=== PATIENT | male | born 1950 | race Caucasian/White ===

== ENCOUNTER 2020-11-14 11:33 | Observation (INO) | payer MEDICARE ==
[~2020-11-14] VITALS: Ht 165.1 cm; Wt 84.6 kg
--- NOTE | 2020-11-14 13:30 | NUR ---
PATIENT WAS TRANSPORTED TO THE HOSPITAL BY HIS DAUGHTER. PATIENT WAS ADMITTED TO THE UNIT FROM [facility]. PATIENT WAS ESCORTED TO ROOM 107 BY THIS RN VIA A WHEELCHAIR. PATIENT WAS ORIENTED TO THE UNIT ROUTINES. PATIENT KNEW HIS NAME, DATE OF , WHERE HE WAS AND WHY HE WAS HERE BUT DID NOT KNOW THE DAY, MONTH OR YEAR. PATIENT IS ALERT, CALM, COOPERATIVE, BUT CONFUSED. PATIENT DID STATE HE WAS STILL HAVING HALLUCINATIONS AND DELUSIONS. PATIENT WAS ASSISTED INTO THE BED WITH THE SIDE RAILS UP x'S 2 AND CALL LIGHT IN REACH. WCTM AND IMPLEMENT ANY ORDERS RECEIVED.
[2020-11-14 14:22] VITALS: BP 122/85
[2020-11-14] MEDS ORDERED: ACETAMINOPHEN 325 MG TABLET PO PRN (15:00)
[2020-11-14 15:56] VITALS: BP 122/85
--- NOTE | 2020-11-14 15:56 | HP ---
ADMIT DATE: 11/14/2020 HISTORY OF PRESENT ILLNESS: The patient is a 70-year-old male patient, a resident at [facility] in [facility], was basically admitted to [address] [place] [address] to be screened for COVID-19. Ultimately, he will be admitted to [facility] on account of being as insomnia, extremely anxious, report the door is melting of hinges, water is coming out of electrical cords, states to staff that "I think its my time to go," believes comes to him at nighttime and they have sex together. He also sees lots of bugs, snakes and puppies. He has been seeing them for a while there in his assisted living facility and has seen a lot of them today here in our hospital. Apparently, attempts made to change his medication were unsuccessful and therefore this resulted in his referral to this facility. PAST MEDICAL HISTORY: Significant for hypertension, anemia, chronic kidney disease, type 2 diabetes, has also right arm deformity due to childhood poliomyelitis. PSYCHIATRIC HISTORY: Significant for dementia, depression and anxiety. PAST SURGICAL HISTORY: Unremarkable. ALLERGIES: He has no known drug allergies. MEDICATIONS: He is currently on following medications: He is on acetaminophen 650 mg twice daily, atorvastatin calcium 20 mg at bedtime, cetirizine 10 mg once a day, duloxetine 60 mg once a day, fluticasone 1 spray in each nostril once a day. He is on lactulose 15 mL by mouth once a day, lisinopril 10 mg once a day, meloxicam 7.5 mg once a day. He is on Namenda extended release 28 mg once a day, propranolol 10 mg 1 tablet twice a day, quetiapine fumarate 25 mg every night at bedtime. He is on tamsulosin 0.4 mg at bedtime. REVIEW OF SYSTEMS: As per history of present illness. PHYSICAL EXAMINATION: GENERAL: When I examined him, the patient looked well and was clearly in no apparent respiratory distress. No pallor, jaundice, cyanosis or thyromegaly. No jugular venous distention. No lower limb edema. VITAL SIGNS: His heart rate was 79, blood pressure was 122/85, temperature was 98, respiratory rate 20, and oxygen saturation was 96% on room air. HEAD, EYES, EARS, NOSE AND THROAT: Showed normocephalic, atraumatic. NECK: Supple. HEART: Showed normal first and second heart sounds. No gallop, rub or murmur. CHEST: Clear to auscultation. No crepitation or rhonchi. ABDOMEN: Distended, soft, nontender. NEUROLOGIC: He is awake, alert, without any obvious lateralizing sign. All his cranial nerves are intact. He moves his left upper and bilateral lower extremities without difficulty, has atrophic deformed right upper extremity due to childhood poliomyelitis. The patient stated he is able to walk, is more unsteady on his feet. PLAN: My plan obviously is to check all his lab work including the coronavirus by PCR testing. Check a CBC, CMP, D-dimer and other labs at [facility]. We will consult Dr. Cho to evaluate him and once his COVID test by PCR is negative, he will be transferred to [facility] for inpatient psychiatric stabilization. PHOENIX GARCIA MD DR: JOHN/margaret JOB#: [id number] / [id number]
[2020-11-14 19:53] VITALS: BP 136/76
[2020-11-14 20:33] VITALS: BP 136/76
[2020-11-14] MEDS ORDERED: ATORVASTATIN CALCIUM 20 MG TABLET PO SCH (21:00)
[2020-11-14] MEDS ORDERED: TAMSULOSIN 0.4 MG CAP.ER.24H. PO SCH (21:00)
[2020-11-14] MEDS ORDERED: MEMANTINE 10 MG TABLET. PO SCH (21:00)
[2020-11-14] MEDS ORDERED: PROPRANOLOL 10 MG TABLET. PO SCH (21:00)
[2020-11-14] MEDS ORDERED: QUEtiapine 25 MG TABLET. PO SCH (21:00)
[2020-11-14 21:20] LABS: BASO % 1 % (0-3); EOS # 0.2 x10^3/uL (0.0-0.7); EOS % 3 % (0-3); HEMOGLOBIN 11.7 g/dL (13.0-17.5); LYMPH # 1.8 x10^3/uL (1.0-4.8); LYMPH % 33 % (24-48); MEAN CORPUSCULAR HEMOGLOBIN 32 pg (25-35); MEAN CORPUSCULAR HGB CONC 34 g/dL (31-37); MEAN CORPUSCULAR VOLUME 96 fL (79-100); MONO # 0.5 x10^3/uL (0.0-1.1); MONO % 9 % (0-9); NEUT # 3.1 x10^3uL (1.8-7.7); NEUT % 55 % (31-73); PLATELET COUNT 179 x10^3/uL (140-400); RED BLOOD COUNT 3.64 x10^6/uL (4.30-5.70); RED CELL DISTRIBUTION WIDTH 12.7 % (11.5-14.5); WHITE BLOOD COUNT 5.6 x10^3/uL (4.0-11.0)
[2020-11-14 21:26] LABS: ALBUMIN 3.3 g/dL (3.4-5.0); CALCIUM 8.1 mg/dL (8.5-10.1); CREATININE 1.9 mg/dL (0.7-1.3); MAGNESIUM 2.3 mg/dL (1.8-2.4); POTASSIUM 4.6 mmol/L (3.5-5.1); TOTAL BILIRUBIN 0.3 mg/dL (0.2-1.0); TOTAL PROTEIN 6.6 g/dL (6.4-8.2)
[2020-11-15] MEDS ORDERED: MELO7.5T29 PO (02:56)
[2020-11-15] MEDS ORDERED: FLUT50DI IH (02:56)
[2020-11-15] MEDS ORDERED: QUET25TA5 PO (02:56)
[2020-11-15] MEDS ORDERED: ACET325T21 PO (02:56)
[2020-11-15] MEDS ORDERED: LISI10TA16 PO (02:56)
[2020-11-15] MEDS ORDERED: MEMA10TA PO (02:56)
[2020-11-15] MEDS ORDERED: ATOR20TA58 PO (02:56)
[2020-11-15] MEDS ORDERED: TAMS0.4C97 PO (02:56)
[2020-11-15] MEDS ORDERED: PROP10TA PO (02:56)
[2020-11-15] MEDS ORDERED: LACT20PA3 PO (02:56)
[2020-11-15] MEDS ORDERED: DULO60CA6 PO (02:56)
[2020-11-15] MEDS ORDERED: CETI10TA16 PO (02:56)
--- NOTE | 2020-11-15 04:11 | NUR ---
PT DISCHARGED TO [facility] AFTER NEGATIVE COVID RESULTS. THIS NURSE CALLED AND GAVE ARIEL MEJÍA REPORT. BELONGINGS AND DISCHARGE PAPERWORK SENT W/ PT. PT WHEELED IN WHEELCHAIR TO [facility].
[2020-11-15 04:38] LABS: BACTERIA,URINE 0 /HPF (0-FEW); BILIRUBIN,URINE NEG (NEG); CLARITY,URINE CLEAR; COLOR,URINE YELLOW; GLUCOSE,URINE NEG (NEG); NITRITE,URINE NEG (NEG); RBC,URINE 0 /HPF (0-2); UROBILINOGEN,URINE 0.2 mg/dL (0.2 mg/dL); WBC,URINE 0 /HPF (0-4)
[2020-11-15] MEDS ORDERED: FLUT16SP21 NS (04:52)
[2020-11-15] MEDS ORDERED: LISINOPRIL 10 MG TABLET PO SCH (09:00)
[2020-11-15] MEDS ORDERED: CETIRIZINE HCL 10 MG TABLET PO SCH (09:00)
[2020-11-15] MEDS ORDERED: FLUTICASONE 50MCG/NASAL SPRAY 16GM BOTTLE. NS SCH (09:00)
[2020-11-15] MEDS ORDERED: DULoxetine HCL 60 MG CAPSULE.DR PO SCH (09:00)
[2020-11-15] MEDS ORDERED: MELOXICAM 7.5 MG TABLET PO SCH (09:00)
[2020-11-15] MEDS ORDERED: LACTULOSE 20 GM/30 ML SOLUTION. PO SCH (09:00)
[2020-11-15 14:56] LABS: THYROID STIM HORMONE (TSH) 0.971 uIU/mL (0.358-3.740)
[2020-11-15 23:15] LABS: HEMOGLOBIN A1C 5.8 % (4.8-5.6)
== END 2020-11-15 04:14 ==
LOC: 1 SOUTH 13:10
PROVIDERS: ADMIT Internal Medicine; ATTEND Internal Medicine
DX: R41.82 Altered mental status, unspecified (principal); Z20.822 Contact with and (suspected) exposure to COVID-19; I12.9 Hypertensive chronic kidney disease with stage 1 through stage 4 chronic kidney disease, or unspecified chronic kidney disease; N18.9 Chronic kidney disease, unspecified; E11.22 Type 2 diabetes mellitus with diabetic chronic kidney disease; G47.00 Insomnia, unspecified; F03.90 Unspecified dementia, unspecified severity, without behavioral disturbance, psychotic disturbance, mood disturbance, and anxiety; F02.80 Dementia in other diseases classified elsewhere, unspecified severity, without behavioral disturbance, psychotic disturbance, mood disturbance, and anxiety; F41.9 Anxiety disorder, unspecified; F32.9 Major depressive disorder, single episode, unspecified; Z79.899 Other long term (current) drug therapy
CPT/HCPCS: 36415; 80053; 80061; 81001; 82306; 82607; 83036; 83735; 84443; 85025; 85379; 86592; G0378; G0379; U0003; U0005

== ENCOUNTER 2020-11-15 04:04 | Inpatient (IN) | payer MEDICARE ==
[~2020-11-15] VITALS: Ht 162.6 cm; Wt 85.6 kg
[~2020-11-15 04:04] MED LIST: ACET325T21 PO; ATOR20TA58 PO; CETI10TA16 PO; DULO60CA6 PO; FLUT50DI IH; LACT20PA3 PO; LISI10TA16 PO; MELO7.5T29 PO; MEMA10TA PO; PROP10TA PO; QUET25TA5 PO; TAMS0.4C97 PO
[2020-11-15 04:34] VITALS: BP 116/81
[2020-11-15] MEDS ORDERED: FLUT16SP21 NS (04:52)
[2020-11-15] MEDS ORDERED: METHYL SALICYLATE/MENTHOL TOPICAL OINTMENT 57GM TUBE. TP PRN (05:00)
[2020-11-15] MEDS ORDERED: MAGNESIUM HYDROXIDE 2,400 MG/30 ML ORAL.SUSP. PO PRN (05:00)
[2020-11-15] MEDS ORDERED: ACETAMINOPHEN 325 MG TABLET PO PRN ×2 (05:00)
[2020-11-15] MEDS ORDERED: MAG HYDROX/AL HYDROX/SIMETH 30 ML ORAL.SUSP PO PRN (05:00)
[2020-11-15 07:07] LABS: BACTERIA,URINE 0 /HPF (0-FEW); BILIRUBIN,URINE NEG (NEG); CLARITY,URINE CLEAR; COLOR,URINE YELLOW; GLUCOSE,URINE NEG (NEG); NITRITE,URINE NEG (NEG); RBC,URINE OCC /HPF (0-2); UROBILINOGEN,URINE 0.2 mg/dL (0.2 mg/dL); WBC,URINE OCC /HPF (0-4)
[2020-11-15 07:08] LABS: SQUAMOUS EPITHELIAL CELL,UR OCC /LPF
[2020-11-15] MEDS: LACTULOSE 20 GM/30 ML SOLUTION. PO SCH (08:46)
[2020-11-15] MEDS: PROPRANOLOL 10 MG TABLET. PO SCH ×2 (08:46→21:39)
[2020-11-15] MEDS: MEMANTINE 10 MG TABLET. PO SCH ×2 (08:46→21:28)
[2020-11-15] MEDS: DULoxetine HCL 60 MG CAPSULE.DR PO SCH (08:46)
[2020-11-15] MEDS: TAMSULOSIN 0.4 MG CAP.ER.24H. PO SCH ×2 (08:46→21:28)
[2020-11-15] MEDS: LISINOPRIL 10 MG TABLET PO SCH (08:47)
[2020-11-15] MEDS: MELOXICAM 7.5 MG TABLET PO SCH (08:47)
[2020-11-15] MEDS: CETIRIZINE HCL 10 MG TABLET PO SCH (08:47)
[2020-11-15] MEDS: FLUTICASONE 50MCG/NASAL SPRAY 16GM BOTTLE. NS SCH (08:48)
--- NOTE | 2020-11-15 12:16 | TX PLAN ---
Interdisciplinary Tx Plan Admission Information Nov 15, 2020 at 04:04 Legal Status (on Admission): Voluntary DPOA/Guardian Name: Karen EagleStep-dtr Contact Other Contact Name: Cherelle Other Contact Verified Code Status: DNR Allergies: Coded Allergies: No Known Drug Allergies (Unverified , 11/14/20) Diagnoses Primary Diagnosis: Depression, Anxiety, Dementia Reasons for Admission: Sig. Change Sleep, Anxiety/Panic, Hallucinations, Confusion/Disoriented Problem in Patient's Words: Per DPOA, pt has dementia that was diagnosed about 2 years ago. He see animals and [place]in flying out of the TV. Per facility, pt was exhibiting true feelings of fear r/t the things he was seeing and thinking. Additional Admission Comments: Per intake, insomnia, anxious, reports the door is melting off the hinges, seeing things upside down, thinks water is coming out of the electrical cords, states to staff that he thinks it's his time to go, believes comes to him at night and they have had sex. Problems Active Problems: hallucinations, delusions, fearfulness, anxiety Inactive Problems: None at this time Pt Strengths/Limitations Ability for [place]: Poor Cognitive Functioning/Ability: Fair Communication Skills/Ability: Fair Financial Resources: Poor Insight/Judgement: Poor Intellectual Ability: Poor Physical Health: Poor Social Skills: Fair Stability in Family: Poor Stability in School/Work: Poor Verbal Skills: Fair Discharge Criteria Discharge Criteria: No need for close observ., Adequate arrangements @DC, Verbal commit med comply, Improved behavior, Improved mood/thought Preliminary Discharge Plan Preliminary DC Plan: Current Living Arrange. Special Precautions Special Precautions: Suicide Risk Fall Risk: Moderate Other Precautions (specify): Uses a cane. Initial D/C Plan Pt plan is to return to [facility]. Identified Discharge Needs: None at this time. Currently Utilized Resources Currently Utilized Resources/P: PCP-Dr. Nathaniel YOUNGBLOOD-[facility] LEANDRO-Shirin Referrals Community Resources: None noted at this time. Identified Problems/Hx/Goals Objectives/Short-Term Goals Short Term Goals: Control abnormal behavior, Dec. Anxiety/Panic, Dec. Hallucin ation/Delus, Dec. Symp. Depression, Medication Stabilization, Monitor Med Effects Short Term Goals in Patient's: to have medications evaluated and adjusted. Stop seeing things that aren't there and not feel fear. 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 Education: Pt only has 5th grade education and struggles communicating his feelings. Community Follow-up PCP Community Provider/Family Inpu: FORD is aware that pt has arrived to [facility]. FORD has provided input in pt social history and is available for further information if needed. Treatment Plan Explained Patient/Retail And Promotions Coordinator had this treatment plan explained to him/her as indicated by the signature below and has been given the opportunity to ask questions and make suggestions: Date: Patient/Retail And Promotions Coordinator Signature: GREGOR MENDOZA Nov 15, 2020 12:16
[2020-11-15 16:33] VITALS: BP 114/84
[2020-11-15] MEDS: CHOLECALCIFEROL (VITAMIN D3) 50,000 UNIT CAPSULE PO SCH (17:54)
--- NOTE | 2020-11-15 20:55 | CONS ---
DATE OF CONSULTATION: 11/15/2020 REASON FOR CONSULTATION: Medical management. HISTORY OF PRESENT ILLNESS: The patient is a 70-year-old male patient who was seen initially at the Medical/Surgical Unit at [facility] where he was screened for COVID-19 and turned out to be undetectable and was transferred to [facility] on account of being extremely anxious, reported door is melting of hinges, water is coming out of electrical cords. He told the staff that he thinks it is his time to go, believes his comes back to him at nighttime and they have sex together. He also says lots of bugs, snakes, and puppies, has been seeing them for a while there in his assisted living facility and saw them again in our hospital and, therefore, the patient was admitted to [facility] for inpatient psychiatric stabilization. PAST MEDICAL HISTORY: Significant for hypertension, anemia, chronic kidney disease, type 2 diabetes. He has right arm deformity due to childhood poliomyelitis. PAST SURGICAL HISTORY: Unremarkable. PAST PSYCHIATRIC HISTORY: Significant for dementia, depression, and anxiety. ALLERGIES: He has no known drug allergies. FAMILY HISTORY: Noncontributory. MEDICATIONS: He is currently on meloxicam 7.5 mg once a day, lisinopril 10 mg once a day, lactulose 15 mL daily, Flonase 1 spray to each nostril once a day, duloxetine 60 mg once a day, cetirizine 10 mg daily, tamsulosin 0.4 mg twice a day, quetiapine fumarate 25 mg at bedtime, propranolol 10 mg twice a day, Namenda 10 mg twice a day, atorvastatin 20 mg at bedtime, and acetaminophen 650 mg every 6 hours. PHYSICAL EXAMINATION: GENERAL: When I examined him, he looked well and was clearly in no apparent respiratory distress. No pallor, jaundice, cyanosis, or thyromegaly. No jugular venous distention. No lower limb edema. VITAL SIGNS: His heart rate was 78, blood pressure was 136/76, temperature 98, respiratory rate was 16, and oxygen saturation was 94%. HEAD, EYES, EARS, NOSE AND THROAT: Normocephalic, atraumatic. NECK: Supple. HEART: Showed normal first and second heart sounds. No gallop or murmur. CHEST: Clear to auscultation. No crepitation or rhonchi. ABDOMEN: Distended, soft, nontender. NEUROLOGIC: He was awake, alert, responding appropriately. All cranial nerves intact. EXTREMITIES: He moves all his extremities. He obviously has deformity of his right upper extremity due to childhood poliomyelitis. LABORATORY DATA: Showed a white cell count 5600, hemoglobin 11.7, hematocrit 35, MCV 96, and platelet count of 179,000. Serum sodium was 141, potassium 4.6, chloride 108, bicarbonate 25, anion gap of 8, BUN 38, creatinine 1.9, estimated GFR was 35 mL per minute. His glucose was 93, calcium was 8.1, magnesium 2.8. Total bilirubin, AST, ALT, alkaline phosphatase were normal. Total protein 6.6, albumin was 3.3. Serum triglycerides were 143, total cholesterol 155, LDL was 89, VLDL was 28, HDL cholesterol was 38 and the ratio was 4. Vitamin B12 was 438 and 25-hydroxy vitamin D was 15.2. TSH was 0.971. ASSESSMENT AND PLAN: In summary, this is a 70-year-old male patient who was admitted to [facility] after a short stay at [address] [place] [address] where he was screened and was found to be negative for COVID-19. He was admitted to [facility] on account of being extremely anxious. He reported door is melting of hinges, water is coming out of electrical cords. He told the staff that he thinks it is time to go, believe his comes to see him at nighttime and they have sex together. He also sees lots of bugs, snakes, and puppies and has been seeing them for a while there in his assisted living facility and again when he came to our hospital. He has multiple medical problems including hypertension, anemia, chronic kidney disease, type 2 diabetes, and right arm deformity due to childhood poliomyelitis. His lab work was stable except that he has hypovitaminosis D. PLAN: My plan is to replenish his vitamin D. Meanwhile, continue with all other medication. I will follow his lab works that are still pending at the time of this dictation and make any necessary recommendation. Thank you, Dr. Cho, for allowing me to participate in the care of this patient. PHOENIX GARCIA MD DR: JOHN/margaret JOB#: [id number] / [id number]
[2020-11-15 21:14] LABS: THYROXINE 6.5 ug/dL (4.5-12.0)
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
[2020-11-15] MEDS: QUEtiapine 25 MG TABLET. PO SCH (21:29)
[2020-11-15] MEDS: ATORVASTATIN CALCIUM 20 MG TABLET PO SCH (21:29)
[2020-11-15 23:15] LABS: HEMOGLOBIN A1C 5.8 % (4.8-5.6)
[2020-11-16 06:25] VITALS: BP 119/82
[2020-11-16] MEDS: MELOXICAM 7.5 MG TABLET PO SCH (08:20)
[2020-11-16] MEDS: MEMANTINE 10 MG TABLET. PO SCH ×2 (08:20→21:25)
[2020-11-16] MEDS: CETIRIZINE HCL 10 MG TABLET PO SCH (08:20)
[2020-11-16] MEDS: DULoxetine HCL 60 MG CAPSULE.DR PO SCH (08:21)
[2020-11-16] MEDS: TAMSULOSIN 0.4 MG CAP.ER.24H. PO SCH ×2 (08:21→21:26)
[2020-11-16] MEDS: LISINOPRIL 10 MG TABLET PO SCH (08:21)
[2020-11-16] MEDS: PROPRANOLOL 10 MG TABLET. PO SCH ×2 (08:22→21:25)
[2020-11-16] MEDS: LACTULOSE 20 GM/30 ML SOLUTION. PO SCH (08:22)
[2020-11-16] MEDS: FLUTICASONE 50MCG/NASAL SPRAY 16GM BOTTLE. NS SCH (08:22)
[2020-11-16 16:21] VITALS: BP 128/88
[2020-11-16] MEDS: ATORVASTATIN CALCIUM 20 MG TABLET PO SCH (21:25)
[2020-11-16] MEDS: QUEtiapine 25 MG TABLET. PO SCH (21:25)
--- NOTE | 2020-11-16 22:45 | PN ---
DATE: 11/16/2020 SUBJECTIVE: The patient was seen today, met with the staff, chart reviewed. The patient apparently has been calm, comprehend, interactive. No evidence of any confusion, but has significant problems with concentration and thinking and also disoriented to date, time, and year. OBSERVATION: VITAL SIGNS: Temperature 98.1, blood pressure 119/82, pulse 108, respirations 20, O2 sat 94%. GENERAL: Slept about 6 hours last night. The patient's appetite is good. MEDICATIONS: The patient's current medications include Seroquel 25 mg at night, Namenda 10 mg b.i.d., Cymbalta 60 mg daily. The patient is not having any side effects. LABORATORY DATA: Reviewed. ASSESSMENT: 1. Dementia, unspecified. 2. Psychotic disorder, unspecified. 3. Posttraumatic stress disorder. 4. Major depression, single episode. TREATMENT PLAN: Continue with the current medications. Continue to evaluate. LENGTH OF STAY: 7-10 days. ANNETTE BARAJAS MD DR: MICHAEL/margaret JOB#: [id number] / [id number]
[2020-11-17 06:42] VITALS: BP 124/87
[2020-11-17] MEDS: TAMSULOSIN 0.4 MG CAP.ER.24H. PO SCH ×2 (08:17→21:36)
[2020-11-17] MEDS: MEMANTINE 10 MG TABLET. PO SCH ×2 (08:17→21:37)
[2020-11-17] MEDS: MELOXICAM 7.5 MG TABLET PO SCH (08:17)
[2020-11-17] MEDS: LISINOPRIL 10 MG TABLET PO SCH (08:17)
[2020-11-17] MEDS: DULoxetine HCL 60 MG CAPSULE.DR PO SCH (08:17)
[2020-11-17] MEDS: CETIRIZINE HCL 10 MG TABLET PO SCH (08:17)
[2020-11-17] MEDS: LACTULOSE 20 GM/30 ML SOLUTION. PO SCH (08:17)
[2020-11-17] MEDS: PROPRANOLOL 10 MG TABLET. PO SCH ×2 (08:18→21:48)
[2020-11-17] MEDS: FLUTICASONE 50MCG/NASAL SPRAY 16GM BOTTLE. NS SCH (08:19)
--- NOTE | 2020-11-17 11:52 | RAD ---
CT HEAD/BRAIN WO dated 11/17/2020 10:14 AM Indication:Reason: Altered mental status / Spl. Instructions: / History: Comparison: No comparison is available. Technique: Noncontrast images were performed. One or more of the following individualized dose reduction techniques were utilized for this examinat ion: 1. Automated exposure control 2. Adjustment of the mA and/or kV according to patient size 3. Use of iterative reconstruction technique Findings: There is no apparent intracranial mass, hemorrhage or abnormal extra-axial fluid collection. There is some volume loss, especially in the frontal lobes. Patchy low attenuation through the cerebral white matter suggests chronic small vessel ischemic injury. No other area of abnormal density is seen. The ventricles and basilar cisterns are normally positioned. The sinuses and mastoid air cells appear cl ear. IMPRESSION: No acute abnormality. Electronically signed by: Anthony Acevedo Jr., MD (11/17/2020 11:49 AM) [id number]
[2020-11-17 15:40] VITALS: BP 105/71
[2020-11-17] MEDS: QUEtiapine 25 MG TABLET. PO SCH (21:36)
[2020-11-17] MEDS: ATORVASTATIN CALCIUM 20 MG TABLET PO SCH (21:38)
[2020-11-18 06:38] VITALS: BP 103/70
[2020-11-18] MEDS: LACTULOSE 20 GM/30 ML SOLUTION. PO SCH (07:39)
[2020-11-18] MEDS: MEMANTINE 10 MG TABLET. PO SCH ×2 (07:40→19:37)
[2020-11-18] MEDS: DULoxetine HCL 60 MG CAPSULE.DR PO SCH (07:40)
[2020-11-18] MEDS: MELOXICAM 7.5 MG TABLET PO SCH (07:40)
[2020-11-18] MEDS: LISINOPRIL 10 MG TABLET PO SCH (07:40)
[2020-11-18] MEDS: CETIRIZINE HCL 10 MG TABLET PO SCH (07:40)
[2020-11-18] MEDS: PROPRANOLOL 10 MG TABLET. PO SCH ×2 (07:40→19:36)
[2020-11-18] MEDS: TAMSULOSIN 0.4 MG CAP.ER.24H. PO SCH ×2 (07:40→19:36)
[2020-11-18] MEDS: FLUTICASONE 50MCG/NASAL SPRAY 16GM BOTTLE. NS SCH (07:41)
[2020-11-18 15:51] VITALS: BP 111/77
[2020-11-18] MEDS: ATORVASTATIN CALCIUM 20 MG TABLET PO SCH (19:36)
[2020-11-18] MEDS: QUEtiapine 25 MG TABLET. PO SCH (19:37)
--- NOTE | 2020-11-18 20:41 | CONS ---
DATE OF CONSULTATION: 11/16/2020 NEUROLOGY CONSULTATION REFERRING PHYSICIAN: ____ REASON FOR CONSULTATION: Mental status changes, rule out TIA. HISTORY OF PRESENT ILLNESS: This is a 70-year-old right-handed male who was initially admitted to [facility] on suspicions of COVID-19, then he was transferred to [facility] to continue with his psychiatric care as he has been having visual hallucinations with extreme anxiety. He became very paranoid and believes his comes back to him at night and they have sex together. The patient also described visual hallucinations as seeing snakes and other animals. Neuro consult was requested because of acute mental status changes and rule out any central nervous system pathology or TIA. PAST MEDICAL HISTORY: Significant for poliomyelitis affecting mainly the right upper and lower extremities, anemia, hypertension, chronic kidney disease, diabetes mellitus type 2, benign prostate hypertrophy, and hyperlipidemia. PAST PSYCHIATRIC HISTORY: Positive for dementia, depressions and anxiety disorders. FAMILY HISTORY: Noncontributory. SOCIAL HISTORY: The patient denies smoking, alcohol drinking, or illicit drug use. CURRENT MEDICATIONS: Include Seroquel 25 mg nightly, Lipitor 25 mg daily, propranolol 10 mg p.o. twice daily, Flomax 0.4 mg twice daily, Namenda 10 mg b.i.d., meloxicam 7.5 mg daily, lisinopril 10 mg daily, Flonase nasal spray, Cymbalta 60 mg daily, and cetirizine 10 mg daily. ALLERGIES: No known drug allergies. REVIEW OF SYSTEMS: A 12-point review of system was performed as mentioned above in history of present illness. PHYSICAL EXAMINATION: GENERAL: Well-developed, well-nourished male, not in acute distress. He weighs 84.6 kilos. VITAL SIGNS: Blood pressure 119/82, respiratory rate 20, pulse is 108, oxygen saturation 93%, and temperature is 98.1. HEENT: Normocephalic, atraumatic, otherwise unremarkable. NECK: Supple. Negative for carotid bruit, lymphadenopathy or thyromegaly. LUNGS: Clear to A and P. CARDIOVASCULAR: Regular rate and rhythm, normal S1, S2. There is no S3, S4 or murmur. ABDOMEN: Soft. Bowel sounds positive. EXTREMITIES: Negative for cyanosis, clubbing or edema. NEUROLOGICAL EXAMINATION: MENTAL STATUS: The patient is alert and oriented x 3. The speech is fluent. There is no language dysfunction. Memory, judgment, and abstracting thinking are fair. The patient denies hallucination or delusion. CRANIAL NERVES: Visual andujar are full. The pupils are reactive to light and accommodation. The extraocular movements are intact. There is no nystagmus. There is no facial motor or sensory deficit. Hearing is diminished on the right side compared to the normal on the left side. The palate is elevated symmetrically. Sternocleidomastoid muscles are powerful bilaterally. The patient shrugs his shoulders symmetrically, protrudes his tongue in the midline without fasciculation or atrophy. MOTOR EXAMINATION: Diffuse atrophy of the right upper extremity secondary to poliomyelitis since childhood. The strength is 4/5 in the right upper and lower extremity and 5/5 throughout. Deep tendon ____. SENSORY EXAMINATION: Revealed normal pinprick to light touch, vibratory and position senses. Deep tendon reflexes were symmetric and hypoactive with absent Achilles responses. GAIT: Tandem gait is difficult. The patient uses a walker sometimes for ambulation. LABORATORY DATA: CBC revealed white blood cells of 5.6 thousand, hemoglobin 11.7, hematocrit 35, platelet count 179,000. Chemistry revealed sodium 141, potassium 4.6, chloride 108, ____ is 25, BUN is 38, creatinine 1.9, glucose is 93, calcium 8.1, magnesium 2.8. Liver enzymes are normal. Lipid profile revealed normal cholesterol, LDL and HDL. Vitamin B12 is 438 with vitamin D of 15.2 and TSH is normal at 0.9. IMPRESSION: 1. Acute encephalopathy of unknown etiology with history of transient ischemic attack and stroke without focal neurological deficit except for generalized atrophy, more prominent on the right upper extremity secondary to poliomyelitis since childhood. 2. Multiple medical problems include dementia, hypertension, anemia, chronic kidney disease, diabetes mellitus type 2. 3. Multiple psychiatric problems include dementia, depressions, and anxiety disorders. RECOMMENDATIONS: 1. Continue with current medical and psychiatric care. 2. We will obtain a head CT scan without contrast to rule out central nervous system pathology. M Kenneth MAHMOOD MD DR: ERIKA/margaret JOB#: [id number] / [id number]
--- NOTE | 2020-11-18 22:23 | PDOC ---
Exam Note: Nilesh Note: Late entry for 11/17/20. Please also refer to the separate dictated note~for this date of service dictated separately.~Patient seen individually. Discussed the patient with Nursing staff reviewed the chart.~Reviewed interim history and current functioning. Reviewed vital signs,~Labs/ Radiology~and current medicat ions noted below. Continue current treatment with the changes noted in the dictated addendum note Assessment: Vital Signs/I&O: Vital Signs Date Time Temp Pulse Resp B/P (MAP) Pulse Ox O2 Delivery O2 Flow Rate FiO2 11/18/20 19:36 64 111/77 11/18/20 15:51 98.5 16 95 11/18/20 06:38 Room Air I & O 11/17/20 11/17/20 11/18/20 15:00 23:00 07:00 Intake Total 840 ml 360 ml Balance 840 ml 360 ml Labs: Laboratory Tests Test 11/18/20 07:44 Glucose (Fingerstick) 108 mg/dL (70-99) H Current Medications: Meds: Laboratory Tests Test 11/18/20 07:44 Glucose (Fingerstick) 108 mg/dL Current Medications Medications (Trade) Dose Ordered Sig/Delfina Route PRN Reason Start Time Stop Time Status Last Admin Dose Admin Acetaminophen (Tylenol) 650 mg PRN Q6HRS PRN PO pain or fever 11/15/20 05:00 11/16/20 21:26 Atorvastatin Calcium (Lipitor) 20 mg QHS PO 11/15/20 21:00 11/18/20 19:36 Cetirizine HCl (ZyrTEC) 10 mg DAILY PO 11/15/20 09:00 11/18/20 07:40 Duloxetine HCl (Cymbalta) 60 mg DAILY PO 11/15/20 09:00 11/18/20 07:40 Fluticasone Propionate (Flonase) 2 spray DAILY NS 11/15/20 09:00 11/18/20 07:41 Lisinopril (Prinivil) 10 mg DAILY PO 11/15/20 09:00 11/18/20 07:40 Meloxicam (Mobic) 7.5 mg DAILY PO 11/15/20 09:00 11/18/20 07:40 Memantine (Namenda) 10 mg BID PO 11/15/20 09:00 11/18/20 19:37 Propranolol HCl (Inderal) 10 mg BID PO 11/15/20 09:00 11/18/20 19:36 Quetiapine Fumarate (SEROquel) 25 mg QHS PO 11/15/20 21:00 11/18/20 19:37 Tamsulosin HCl (Flomax) 0.4 mg BID PO 11/15/20 09:00 11/18/20 19:36 Lactulose (Lactulose) 20 gm DAILY PO 11/15/20 09:00 11/18/20 07:39 Acetaminophen (Tylenol) 650 mg PRN Q6HRS PRN PO MILD PAIN / TEMP > 100.3'F 11/15/20 05:00 UNV Multi-Ingredient Ointment (Analgesic [place]) 1 eyal PRN QID PRN TP MUSCLE PAIN 11/15/20 05:00 Al Hydroxide/Mg Hydroxide (Mylanta Plus Xs) 15 ml PRN AFTMEALHC PRN PO DYSPEPSIA 11/15/20 05:00 Magnesium Hydroxide (Milk Of Magnesia) 2,400 mg PRN QHS PRN PO CONSTIPATION 11/15/20 05:00 Vitamin D (Vitamin D3) 50,000 unit WEEKLY PO 11/15/20 18:00 11/15/20 17:54 Aspirin (Aspirin Chewable) 81 mg DAILY ONCE PO 11/19/20 09:00 11/19/20 09:01 I have reviewed the current psychotropics carefully including drug interactions. Risk benefit ratio favors no change other than as noted in my dictated progress note. Diagnosis: Problems: (1) Major depressive disorder with psychotic features (2) PTSD (post-traumatic stress disorder) NATALI RABAGO MD Nov 18, 2020 22:23
[2020-11-19 06:20] VITALS: BP 109/74
--- NOTE | 2020-11-19 07:17 | EKG ---
[address] [address] Test Date: 2020-11-15 Test Time: 09:41:41 Pat Name: YAN BLACK Department: Room: [address] [place] [address] Gender: M Poultry Cutter: : [id number] Requested By: ANNETTE BARAJAS Order Number: [id number] Reading MD: Measurements Intervals [place] Rate: P: CT: QRS: QRSD: T: QT: QTc: Interpretive Statements
--- NOTE | 2020-11-19 07:36 | PDOC ---
Exam Note: Nilesh Note: This note is a late entry for 11/17/2020 covers elements not covered in my initial note. Subjective: Dr. Rosenberg had covered for me from 03 November till November, and I assumed care of the patients from 17 November. I have reviewed information and interim progress notes at some length with Dr. Rosenberg. The patient was seen individually in the evening of 11/17/2020 with Candis GEORGE, discussed and reviewed the chart. The patient just slept 6-3/[address] head was essentially negative. When questioned he knew that he was at a hospital. Review of Systems: Ambulation impaired with walker. No CV, , pulmonary, eye, ENT system symptoms on review. Mental Status Exam: The patient is oriented to himself. Insight and judgment, recent and remote memory, attention and concentration is poor consistent with his diagnoses. As I questioned the patient closely, he thought the year was 2018 but knew he was in [facility], stated he had been here for about a week. 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 Laboratory Data: Reviewed. Impression: Major neurocognitive disorder Alzheimer vascular with delusion, depression, behavioral disturbance. Anxiety disorder unspecified. Impulse control disorder unspecified. Plan: I have carefully reviewed the current psychotropics and drug interactions. Continue current psychotropics. We are awaiting Neurology consult with Dr. Gabriel. Assessment: Vital Signs/I&O: Vital Signs Date Time Temp Pulse Resp B/P (MAP) Pulse Ox O2 Delivery O2 Flow Rate FiO2 11/19/20 06:20 97.5 79 18 109/74 (86) 95 Room Air I & O 11/18/20 11/18/20 11/19/20 15:00 23:00 07:00 Intake Total 650 ml 445 ml Balance 650 ml 445 ml Labs: Laboratory Tests Test 11/18/20 07:44 11/19/20 07:22 Glucose (Fingerstick) 108 mg/dL (70-99) H 108 mg/dL (70-99) H Current Medications: Meds: Laboratory Tests Test 11/18/20 07:44 11/19/20 07:22 Glucose (Fingerstick) 108 mg/dL 108 mg/dL Current Medications Medications (Trade) Dose Ordered Sig/Delfina Route PRN Reason Start Time Stop Time Status Last Admin Dose Admin Acetaminophen (Tylenol) 650 mg PRN Q6HRS PRN PO pain or fever 11/15/20 05:00 11/16/20 21:26 Atorvastatin Calcium (Lipitor) 20 mg QHS PO 11/15/20 21:00 11/18/20 19:36 Cetirizine HCl (ZyrTEC) 10 mg DAILY PO 11/15/20 09:00 11/18/20 07:40 Duloxetine HCl (Cymbalta) 60 mg DAILY PO 11/15/20 09:00 11/18/20 07:40 Fluticasone Propionate (Flonase) 2 spray DAILY NS 11/15/20 09:00 11/18/20 07:41 Lisinopril (Prinivil) 10 mg DAILY PO 11/15/20 09:00 11/18/20 07:40 Meloxicam (Mobic) 7.5 mg DAILY PO 11/15/20 09:00 11/18/20 07:40 Memantine (Namenda) 10 mg BID PO 11/15/20 09:00 11/18/20 19:37 Propranolol HCl (Inderal) 10 mg BID PO 11/15/20 09:00 11/18/20 19:36 Quetiapine Fumarate (SEROquel) 25 mg QHS PO 11/15/20 21:00 11/18/20 19:37 Tamsulosin HCl (Flomax) 0.4 mg BID PO 11/15/20 09:00 11/18/20 19:36 Lactulose (Lactulose) 20 gm DAILY PO 11/15/20 09:00 11/18/20 07:39 Acetaminophen (Tylenol) 650 mg PRN Q6HRS PRN PO MILD PAIN / TEMP > 100.3'F 11/15/20 05:00 UNV Multi-Ingredient Ointment (Analgesic [place]) 1 eyal PRN QID PRN TP MUSCLE PAIN 11/15/20 05:00 Al Hydroxide/Mg Hydroxide (Mylanta Plus Xs) 15 ml PRN AFTMEALHC PRN PO DYSPEPSIA 11/15/20 05:00 Magnesium Hydroxide (Milk Of Magnesia) 2,400 mg PRN QHS PRN PO CONSTIPATION 11/15/20 05:00 Vitamin D (Vitamin D3) 50,000 unit WEEKLY PO 11/15/20 18:00 11/15/20 17:54 Aspirin (Aspirin Chewable) 81 mg DAILY ONCE PO 11/19/20 09:00 11/19/20 09:01 I have reviewed the current psychotropics carefully including drug interactions. Risk benefit ratio favors no change other than as noted in my dictated progress note. Diagnosis: Problems: (1) Major neurocognitive disorder (2) Dementia in Alzheimer's disease with delusions (3) Dementia in Alzheimer's disease with depression (4) Dementia of the Alzheimer's type with early onset with behavioral disturbance (5) Dementia, vascular, with delusions (6) Dementia, vascular, with depression (7) Anxiety disorder, unspecified (8) Impulse control disorder, unspecified NATALI RABAGO MD Nov 19, 2020 07:36
--- NOTE | 2020-11-19 08:10 | PDOC ---
Exam Note: Nilesh Note: This note is a late entry for 11/18/2020 covers elements not covered in my initial note. Subjective: The patient was seen individually in the evening of 11/18/2020 with Candis GEORGE, discussed and reviewed the chart. The patient slept 8 hours previous night. Overall he has done better today. He remains confused out of his room. Dr. Gabriel did start him on aspirin 81 mg a day. No hallucinations today. Review of Systems: Ambulation impaired with walker. No CV, , pulmonary, eye, ENT system symptoms on review. Reliability poor. Mental Status Exam: The patient is oriented to himself. Insight and judgment, recent and remote memory, attention and concentration is poor consistent with his diagnoses. Laboratory Data: Reviewed. Impression: Major neurocognitive disorder Alzheimer vascular with delusion, dep ression, behavioral disturbance. Anxiety disorder unspecified. Impulse control disorder unspecified. Plan: No change from initial note. Assessment: Vital Signs/I&O: Vital Signs Date Time Temp Pulse Resp B/P (MAP) Pulse Ox O2 Delivery O2 Flow Rate FiO2 11/19/20 06:20 97.5 79 18 109/74 (86) 95 Room Air I & O 11/18/20 11/18/20 11/19/20 15:00 23:00 07:00 Intake Total 650 ml 445 ml Balance 650 ml 445 ml Labs: Laboratory Tests Test 11/19/20 07:22 Glucose (Fingerstick) 108 mg/dL (70-99) H Current Medications: Meds: Laboratory Tests Test 11/19/20 07:22 Glucose (Fingerstick) 108 mg/dL Current Medications Medications (Trade) Dose Ordered Sig/Delfina Route PRN Reason Start Time Stop Time Status Last Admin Dose Admin Acetaminophen (Tylenol) 650 mg PRN Q6HRS PRN PO pain or fever 11/15/20 05:00 11/16/20 21:26 Atorvastatin Calcium (Lipitor) 20 mg QHS PO 11/15/20 21:00 11/18/20 19:36 Cetirizine HCl (ZyrTEC) 10 mg DAILY PO 11/15/20 09:00 11/18/20 07:40 Duloxetine HCl (Cymbalta) 60 mg DAILY PO 11/15/20 09:00 11/18/20 07:40 Fluticasone Propionate (Flonase) 2 spray DAILY NS 11/15/20 09:00 11/18/20 07:41 Lisinopril (Prinivil) 10 mg DAILY PO 11/15/20 09:00 11/18/20 07:40 Meloxicam (Mobic) 7.5 mg DAILY PO 11/15/20 09:00 11/18/20 07:40 Memantine (Namenda) 10 mg BID PO 11/15/20 09:00 11/18/20 19:37 Propranolol HCl (Inderal) 10 mg BID PO 11/15/20 09:00 11/18/20 19:36 Quetiapine Fumarate (SEROquel) 25 mg QHS PO 11/15/20 21:00 11/18/20 19:37 Tamsulosin HCl (Flomax) 0.4 mg BID PO 11/15/20 09:00 11/18/20 19:36 Lactulose (Lactulose) 20 gm DAILY PO 11/15/20 09:00 11/18/20 07:39 Acetaminophen (Tylenol) 650 mg PRN Q6HRS PRN PO MILD PAIN / TEMP > 100.3'F 11/15/20 05:00 UNV Multi-Ingredient Ointment (Analgesic [place]) 1 eyal PRN QID PRN TP MUSCLE PAIN 11/15/20 05:00 Al Hydroxide/Mg Hydroxide (Mylanta Plus Xs) 15 ml PRN AFTMEALHC PRN PO DYSPEPSIA 11/15/20 05:00 Magnesium Hydroxide (Milk Of Magnesia) 2,400 mg PRN QHS PRN PO CONSTIPATION 11/15/20 05:00 Vitamin D (Vitamin D3) 50,000 unit WEEKLY PO 11/15/20 18:00 11/15/20 17:54 Aspirin (Aspirin Chewable) 81 mg DAILY ONCE PO 11/19/20 09:00 11/19/20 09:01 I have reviewed the current psychotropics carefully including drug interactions. Risk benefit ratio favors no change other than as noted in my dictated progress note. Diagnosis: Problems: (1) Impulse control disorder, unspecified (2) Anxiety disorder, unspecified (3) Dementia, vascular, with depression (4) Dementia, vascular, with delusions (5) Dementia in Alzheimer's disease with depression (6) Dementia in Alzheimer's disease with delusions (7) Dementia of the Alzheimer's type with early onset with behavioral disturbance (8) Major neurocognitive disorder NATALI RABAGO MD Nov 19, 2020 08:10
[2020-11-19] MEDS ORDERED: ASPIRIN CHEWABLE 81 MG TABLET. PO ONE (09:00)
[2020-11-19] MEDS: DULoxetine HCL 60 MG CAPSULE.DR PO SCH (09:24)
[2020-11-19] MEDS: CETIRIZINE HCL 10 MG TABLET PO SCH (09:24)
[2020-11-19] MEDS: FLUTICASONE 50MCG/NASAL SPRAY 16GM BOTTLE. NS SCH (09:24)
[2020-11-19] MEDS: MELOXICAM 7.5 MG TABLET PO SCH (09:25)
[2020-11-19] MEDS: MEMANTINE 10 MG TABLET. PO SCH ×2 (09:25→20:26)
[2020-11-19] MEDS: LISINOPRIL 10 MG TABLET PO SCH (09:25)
[2020-11-19] MEDS: TAMSULOSIN 0.4 MG CAP.ER.24H. PO SCH ×2 (09:25→20:22)
[2020-11-19] MEDS: PROPRANOLOL 10 MG TABLET. PO SCH ×2 (09:26→20:22)
[2020-11-19] MEDS: LACTULOSE 20 GM/30 ML SOLUTION. PO SCH (09:26)
[2020-11-19 16:09] VITALS: BP 120/83
[2020-11-19] MEDS: ATORVASTATIN CALCIUM 20 MG TABLET PO SCH (20:22)
[2020-11-19] MEDS: QUEtiapine 25 MG TABLET. PO SCH (20:22)
--- NOTE | 2020-11-19 22:18 | PDOC ---
Exam Note: Nilesh Note: Please also refer to the separate dictated note~for this date of service dictated separately.~Patient seen individually. Discussed the patient with Nursing staff reviewed the chart.~Reviewed interim history and current functioning. Reviewed vital signs,~Labs/ Radiology~and current medications noted below. Continue current treatment with the changes noted in the dictated addendum note Assessment: Vital Signs/I&O: Vital Signs Date Time Temp Pulse Resp B/P (MAP) Pulse Ox O2 Delivery O2 Flow Rate FiO2 11/19/20 20:22 87 120/83 11/19/20 16:09 97.8 16 94 11/19/20 06:20 Room Air I & O 11/18/20 11/18/20 11/19/20 15:00 23:00 07:00 Intake Total 650 ml 445 ml Balance 650 ml 445 ml Labs: Laboratory Tests Test 11/19/20 07:22 Glucose (Fingerstick) 108 mg/dL (70-99) H Current Medications: Meds: Laboratory Tests Test 11/19/20 07:22 Glucose (Fingerstick) 108 mg/dL Current Medications Medications (Trade) Dose Ordered Sig/Delfina Route PRN Reason Start Time Stop Time Status Last Admin Dose Admin Acetaminophen (Tylenol) 650 mg PRN Q6HRS PRN PO pain or fever 11/15/20 05:00 11/16/20 21:26 Atorvastatin Calcium (Lipitor) 20 mg QHS PO 11/15/20 21:00 11/19/20 20:22 Cetirizine HCl (ZyrTEC) 10 mg DAILY PO 11/15/20 09:00 11/19/20 09:24 Duloxetine HCl (Cymbalta) 60 mg DAILY PO 11/15/20 09:00 11/19/20 09:24 Fluticasone Propionate (Flonase) 2 spray DAILY NS 11/15/20 09:00 11/19/20 09:24 Lisinopril (Prinivil) 10 mg DAILY PO 11/15/20 09:00 11/19/20 09:25 Meloxicam (Mobic) 7.5 mg DAILY PO 11/15/20 09:00 11/19/20 09:25 Memantine (Namenda) 10 mg BID PO 11/15/20 09:00 11/19/20 20:26 Propranolol HCl (Inderal) 10 mg BID PO 11/15/20 09:00 11/19/20 20:22 Quetiapine Fumarate (SEROquel) 25 mg QHS PO 11/15/20 21:00 11/19/20 20:22 Tamsulosin HCl (Flomax) 0.4 mg BID PO 11/15/20 09:00 11/19/20 20:22 Lactulose (Lactulose) 20 gm DAILY PO 11/15/20 09:00 11/19/20 09:26 Acetaminophen (Tylenol) 650 mg PRN Q6HRS PRN PO MILD PAIN / TEMP > 100.3'F 11/15/20 05:00 UNV Multi-Ingredient Ointment (Analgesic [place]) 1 eyal PRN QID PRN TP MUSCLE PAIN 11/15/20 05:00 Al Hydroxide/Mg Hydroxide (Mylanta Plus Xs) 15 ml PRN AFTMEALHC PRN PO DYSPEPSIA 11/15/20 05:00 Magnesium Hydroxide (Milk Of Magnesia) 2,400 mg PRN QHS PRN PO CONSTIPATION 11/15/20 05:00 Vitamin D (Vitamin D3) 50,000 unit WEEKLY PO 11/15/20 18:00 11/15/20 17:54 Aspirin (Aspirin Chewable) 81 mg DAILY ONCE PO 11/19/20 09:00 11/19/20 09:01 DC 11/19/20 09:24 Current Medications Medications (Trade) Dose Ordered Sig/Delfina Route PRN Reason Start Time Stop Time Status Last Admin Dose Admin Aspirin (Aspirin Chewable) 81 mg DAILY ONCE PO 11/19/20 09:00 11/19/20 09:01 DC 11/19/20 09:24 I have reviewed the current psychotropics carefully including drug interactions. Risk benefit ratio favors no change other than as noted in my dictated progress note. Diagnosis: Problems: (1) Dementia with psychosis (2) Major depressive disorder with psychotic features (3) Impulse control disorder, unspecified (4) Anxiety disorder, unspecified (5) Dementia, vascular, with depression (6) Dementia, vascular, with delusions (7) Dementia in Alzheimer's disease with depression (8) Dementia in Alzheimer's disease with delusions (9) Dementia of the Alzheimer's type with early onset with behavioral disturbance (10) Major neurocognitive disorder NATALI RABAGO MD Nov 19, 2020 22:18
[2020-11-20 06:23] VITALS: BP 146/85
[2020-11-20 06:37] LABS: BASO % 1 % (0-3); EOS # 0.2 x10^3/uL (0.0-0.7); EOS % 4 % (0-3); HEMATOCRIT 37.1 % (39.0-53.0); HEMOGLOBIN 12.6 g/dL (13.0-17.5); LYMPH # 1.5 x10^3/uL (1.0-4.8); LYMPH % 25 % (24-48); MEAN CORPUSCULAR HEMOGLOBIN 32 pg (25-35); MEAN CORPUSCULAR HGB CONC 34 g/dL (31-37); MEAN CORPUSCULAR VOLUME 95 fL (79-100); MONO # 0.5 x10^3/uL (0.0-1.1); MONO % 8 % (0-9); NEUT # 3.7 x10^3uL (1.8-7.7); NEUT % 63 % (31-73); PLATELET COUNT 203 x10^3/uL (140-400); RED BLOOD COUNT 3.89 x10^6/uL (4.30-5.70); RED CELL DISTRIBUTION WIDTH 12.9 % (11.5-14.5)
[2020-11-20 07:31] LABS: ALBUMIN 3.5 g/dL (3.4-5.0); ALBUMIN/GLOBULIN RATIO 0.9 (1.0-1.7); CALCIUM 8.5 mg/dL (8.5-10.1); CREATININE 1.6 mg/dL (0.7-1.3); GFR 42.7; POTASSIUM 4.4 mmol/L (3.5-5.1); TOTAL BILIRUBIN 0.3 mg/dL (0.2-1.0); TOTAL PROTEIN 7.2 g/dL (6.4-8.2)
[2020-11-20] MEDS: PROPRANOLOL 10 MG TABLET. PO SCH ×2 (08:09→20:01)
[2020-11-20] MEDS: MEMANTINE 10 MG TABLET. PO SCH ×2 (08:10→20:00)
[2020-11-20] MEDS: CETIRIZINE HCL 10 MG TABLET PO SCH (08:10)
[2020-11-20] MEDS: MELOXICAM 7.5 MG TABLET PO SCH (08:10)
[2020-11-20] MEDS: LISINOPRIL 10 MG TABLET PO SCH (08:10)
[2020-11-20] MEDS: DULoxetine HCL 60 MG CAPSULE.DR PO SCH (08:10)
[2020-11-20] MEDS: TAMSULOSIN 0.4 MG CAP.ER.24H. PO SCH ×2 (08:10→20:01)
[2020-11-20] MEDS: LACTULOSE 20 GM/30 ML SOLUTION. PO SCH (08:11)
[2020-11-20] MEDS: FLUTICASONE 50MCG/NASAL SPRAY 16GM BOTTLE. NS SCH (08:11)
--- NOTE | 2020-11-20 08:47 | PDOC ---
Exam Note: Nilesh Note: This note is a late entry for 11/19/2020 covers elements not covered in my initial note. Subjective: The patient was seen individually in the evening of 11/19/2020 with Anthony GEORGE, discussed and reviewed the chart. The patient slept 8-1/2 hours previous night. He has been quite withdrawn in his room, was anxious at night with increased heart rate. He ambulated with physical therapy staff with walker. Review of Systems: Ambulation impaired with walker. No CV, , pulmonary, eye, ENT system symptoms on review. Mental Status Exam: The patient is oriented to himself. He had many questions about discharge plans and that he believed that his daughter had got hurt. He had to go home and take care of her, somewhat confused about this. Insight and judgment, recent and remote memory, attention and concentration is poor consistent with his diagnoses. Laboratory Data: Reviewed. Impression: Major neurocognitive disorder Alzheimer vascular with delusion, depression, behavioral disturbance. Anxiety disorder unspecified. Impulse control disorder unspecified. Plan: No change from initial note. Assessment: Vital Signs/I&O: Vital Signs Date Time Temp Pulse Resp B/P (MAP) Pulse Ox O2 Delivery O2 Flow Rate FiO2 11/20/20 08:10 84 146/85 11/20/20 06:23 97.5 20 95 11/19/20 06:20 Room Air I & O 11/19/20 11/19/20 11/20/20 15:00 23:00 07:00 Intake Total 680 ml 600 ml Balance 680 ml 600 ml Labs: Laboratory Tests Test 11/20/20 06:08 11/20/20 07:28 White Blood Count 6.0 x10^3/uL (4.0-11.0) Red Blood Count 3.89 x10^6/uL (4.30-5.70) L Hemoglobin 12.6 g/dL (13.0-17.5) L Hematocrit 37.1 % (39.0-53.0) L Mean Corpuscular Volume 95 fL (79-100) Mean Corpuscular Hemoglobin 32 pg (25-35) Mean Corpuscular Hemoglobin Concent 34 g/dL (31-37) Red Cell Distribution Width 12.9 % (11.5-14.5) Platelet Count 203 x10^3/uL (140-400) Neutrophils (%) (Auto) 63 % (31-73) Lymphocytes (%) (Auto) 25 % (24-48) Monocytes (%) (Auto) 8 % (0-9) Eosinophils (%) (Auto) 4 % (0-3) H Basophils (%) (Auto) 1 % (0-3) Neutrophils # (Auto) 3.7 x10^3uL (1.8-7.7) Lymphocytes # (Auto) 1.5 x10^3/uL (1.0-4.8) Monocytes # (Auto) 0.5 x10^3/uL (0.0-1.1) Eosinophils # (Auto) 0.2 x10^3/uL (0.0-0.7) Basophils # (Auto) 0.0 x10^3/uL (0.0-0.2) Sodium Level 140 mmol/L (136-145) Potassium Level 4.4 mmol/L (3.5-5.1) Chloride Level 105 mmol/L (98-107) Carbon Dioxide Level 27 mmol/L (21-32) Anion Gap 8 (6-14) Blood Urea Nitrogen 24 mg/dL (8-26) Creatinine 1.6 mg/dL (0.7-1.3) H Estimated GFR (Cockcroft-Gault) 42.7 BUN/Creatinine Ratio 15 (6-20) Glucose Level 123 mg/dL (70-99) H Calcium Level 8.5 mg/dL (8.5-10.1) Total Bilirubin 0.3 mg/dL (0.2-1.0) Aspartate Amino Transferase (AST) 16 U/L (15-37) Alanine Aminotransferase (ALT) 33 U/L (16-63) Alkaline Phosphatase 53 U/L (46-116) Total Protein 7.2 g/dL (6.4-8.2) Albumin 3.5 g/dL (3.4-5.0) Albumin/Globulin Ratio 0.9 (1.0-1.7) L Glucose (Fingerstick) 104 mg/dL (70-99) H Current Medications: Meds: Laboratory Tests Test 11/20/20 06:08 11/20/20 07:28 White Blood Count 6.0 x10^3/uL Red Blood Count 3.89 x10^6/uL Hemoglobin 12.6 g/dL Hematocrit 37.1 % Mean Corpuscular Volume 95 fL Mean Corpuscular Hemoglobin 32 pg Mean Corpuscular Hemoglobin Concent 34 g/dL Red Cell Distribution Width 12.9 % Platelet Count 203 x10^3/uL Neutrophils (%) (Auto) 63 % Lymphocytes (%) (Auto) 25 % Monocytes (%) (Auto) 8 % Eosinophils (%) (Auto) 4 % Basophils (%) (Auto) 1 % Neutrophils # (Auto) 3.7 x10^3uL Lymphocytes # (Auto) 1.5 x10^3/uL Monocytes # (Auto) 0.5 x10^3/uL Eosinophils # (Auto) 0.2 x10^3/uL Basophils # (Auto) 0.0 x10^3/uL Sodium Level 140 mmol/L Potassium Level 4.4 mmol/L Chloride Level 105 mmol/L Carbon Dioxide Level 27 mmol/L Anion Gap 8 Blood Urea Nitrogen 24 mg/dL Creatinine 1.6 mg/dL Estimated GFR (Cockcroft-Gault) 42.7 BUN/Creatinine Ratio 15 Glucose Level 123 mg/dL Calcium Level 8.5 mg/dL Total Bilirubin 0.3 mg/dL Aspartate Amino Transf (AST/SGOT) 16 U/L Alanine Aminotransferase (ALT/SGPT) 33 U/L Alkaline Phosphatase 53 U/L Total Protein 7.2 g/dL Albumin 3.5 g/dL Albumin/Globulin Ratio 0.9 Glucose (Fingerstick) 104 mg/dL Current Medications Medications (Trade) Dose Ordered Sig/Delfina Route PRN Reason Start Time Stop Time Status Last Admin Dose Admin Acetaminophen (Tylenol) 650 mg PRN Q6HRS PRN PO pain or fever 11/15/20 05:00 11/16/20 21:26 Atorvastatin Calcium (Lipitor) 20 mg QHS PO 11/15/20 21:00 11/19/20 20:22 Cetirizine HCl (ZyrTEC) 10 mg DAILY PO 11/15/20 09:00 11/20/20 08:10 Duloxetine HCl (Cymbalta) 60 mg DAILY PO 11/15/20 09:00 11/20/20 08:10 Fluticasone Propionate (Flonase) 2 spray DAILY NS 11/15/20 09:00 11/20/20 08:11 Lisinopril (Prinivil) 10 mg DAILY PO 11/15/20 09:00 11/20/20 08:10 Meloxicam (Mobic) 7.5 mg DAILY PO 11/15/20 09:00 11/20/20 08:10 Memantine (Namenda) 10 mg BID PO 11/15/20 09:00 11/20/20 08:10 Propranolol HCl (Inderal) 10 mg BID PO 11/15/20 09:00 11/20/20 08:09 Quetiapine Fumarate (SEROquel) 25 mg QHS PO 11/15/20 21:00 11/19/20 20:22 Tamsulosin HCl (Flomax) 0.4 mg BID PO 11/15/20 09:00 11/20/20 08:10 Lactulose (Lactulose) 20 gm DAILY PO 11/15/20 09:00 11/20/20 08:11 Acetaminophen (Tylenol) 650 mg PRN Q6HRS PRN PO MILD PAIN / TEMP > 100.3'F 11/15/20 05:00 UNV Multi-Ingredient Ointment (Analgesic [place]) 1 eyal PRN QID PRN TP MUSCLE PAIN 11/15/20 05:00 Al Hydroxide/Mg Hydroxide (Mylanta Plus Xs) 15 ml PRN AFTMEALHC PRN PO DYSPEPSIA 11/15/20 05:00 Magnesium Hydroxide (Milk Of Magnesia) 2,400 mg PRN QHS PRN PO CONSTIPATION 11/15/20 05:00 Vitamin D (Vitamin D3) 50,000 unit WEEKLY PO 11/15/20 18:00 11/15/20 17:54 Aspirin (Aspirin Chewable) 81 mg DAILY ONCE PO 11/19/20 09:00 11/19/20 09:01 DC 11/19/20 09:24 Current Medications Medications (Trade) Dose Ordered Sig/Delfina Route PRN Reason Start Time Stop Time Status Last Admin Dose Admin Aspirin (Aspirin Chewable) 81 mg DAILY ONCE PO 11/19/20 09:00 11/19/20 09:01 DC 11/19/20 09:24 I have reviewed the current psychotropics carefully including drug interactions. Risk benefit ratio favors no change other than as noted in my dictated progress note. Diagnosis: Problems: (1) Major depressive disorder with psychotic features (2) Impulse control disorder, unspecified (3) Anxiety disorder, unspecified (4) Dementia, vascular, with depression (5) Dementia, vascular, with delusions (6) Dementia in Alzheimer's disease with depression (7) Dementia in Alzheimer's disease with delusions (8) Dementia of the Alzheimer's type with early onset with behavioral disturbance (9) Major neurocognitive disorder (10) Dementia with psychosis NATALI RABAGO MD Nov 20, 2020 08:47
--- NOTE | 2020-11-20 09:25 | PN ---
DATE: 11/17/2020 SUBJECTIVE: The patient denies any new medical or neurological complaints. He denies headaches, visual disturbances, vertigo. He denies hallucinations today. Initial nonenhanced head CT scan revealed no acute intracranial abnormalities; however, the CAT scan showed some volume loss confined to the frontal lobes and chronic small vessel ischemic changes. OBJECTIVE: GENERAL: Well-developed, well-nourished male, not in acute distress. VITAL SIGNS: Blood pressure 124/87, respiratory rate 16, pulse is 83 and regular, oxygen saturation is 94% on room air. HEENT: Normocephalic, atraumatic, otherwise unremarkable. NECK: Supple. Negative for carotid bruit, lymphadenopathy or thyromegaly. LUNGS: Clear to A and P. CARDIOVASCULAR: Regular rate and rhythm, normal S1, S2. ABDOMEN: Soft. Bowel sounds positive. EXTREMITIES: Negative for cyanosis, clubbing, pitting edema. NEUROLOGIC EXAM: The patient is alert and oriented x 3. The speech is fluent. There is no language dysfunction. Memory, judgment, and abstracting thinking are fair. The patient denies hallucination or delusion. Cranial nerves are intact, but the hearing is diminished on the right side. Otherwise, unremarkable. Motor examination revealed diffuse atrophy of the right upper extremity secondary to poliomyelitis since childhood. The strength was 4/5 on the right upper extremity and 5/5 on the left upper extremity. No focal muscle bulk was seen. The tone is normal. Sensory examination revealed normal pinprick and light touch senses throughout. Deep tendon reflexes were symmetric and hypoactive with absent Achilles responses. Gait: The patient uses a walker for ambulation. LABORATORY DATA: Glucose of 11/16/2020 revealed 118. IMPRESSION: 1. Acute encephalopathy -- resolved with questionable transient ischemic attack. The patient stated he had history of stroke versus TIA and head CT scan revealed evidence of bilateral frontal atrophy and small vessel ischemic changes. 2. Multiple medical problems include history of poliomyelitis, dementia, hypertension, chronic kidney disease, and diabetes mellitus type 2. 3. Multiple psychiatric problems include depressions and anxiety disorder. RECOMMENDATIONS: 1. Continue with current medical and psychiatric care. 2. Add aspirin 81 mg p.o. daily. M Kenneth MAHMOOD MD DR: ERIKA/margaret JOB#: [id number] / [id number] IGOR
[2020-11-20] MEDS: ASPIRIN CHEWABLE 81 MG TABLET. PO SCH (12:23)
[2020-11-20 16:21] VITALS: BP 104/69
[2020-11-20] MEDS: QUEtiapine 25 MG TABLET. PO SCH (20:00)
[2020-11-20] MEDS: ATORVASTATIN CALCIUM 20 MG TABLET PO SCH (20:00)
--- NOTE | 2020-11-20 21:59 | PDOC ---
Exam Note: Nilesh Note: Please also refer to the separate dictated note~for this date of service dictated separately.~Patient seen individually. Discussed the patient with Nursing staff reviewed the chart.~Reviewed interim history and current functioning. Reviewed vital signs,~Labs/ Radiology~and current medications noted below. Continue current treatment with the changes noted in the dictated addendum note Assessment: Vital Signs/I&O: Vital Signs Date Time Temp Pulse Resp B/P (MAP) Pulse Ox O2 Delivery O2 Flow Rate FiO2 11/20/20 20:01 94 104/69 11/20/20 16:21 97.5 16 96 11/19/20 06:20 Room Air I & O 11/19/20 11/19/20 11/20/20 15:00 23:00 07:00 Intake Total 680 ml 600 ml Balance 680 ml 600 ml Labs: Laboratory Tests Test 11/20/20 06:08 11/20/20 07:28 White Blood Count 6.0 x10^3/uL (4.0-11.0) Red Blood Count 3.89 x10^6/uL (4.30-5.70) L Hemoglobin 12.6 g/dL (13.0-17.5) L Hematocrit 37.1 % (39.0-53.0) L Mean Corpuscular Volume 95 fL (79-100) Mean Corpuscular Hemoglobin 32 pg (25-35) Mean Corpuscular Hemoglobin Concent 34 g/dL (31-37) Red Cell Distribution Width 12.9 % (11.5-14.5) Platelet Count 203 x10^3/uL (140-400) Neutrophils (%) (Auto) 63 % (31-73) Lymphocytes (%) (Auto) 25 % (24-48) Monocytes (%) (Auto) 8 % (0-9) Eosinophils (%) (Auto) 4 % (0-3) H Basophils (%) (Auto) 1 % (0-3) Neutrophils # (Auto) 3.7 x10^3uL (1.8-7.7) Lymphocytes # (Auto) 1.5 x10^3/uL (1.0-4.8) Monocytes # (Auto) 0.5 x10^3/uL (0.0-1.1) Eosinophils # (Auto) 0.2 x10^3/uL (0.0-0.7) Basophils # (Auto) 0.0 x10^3/uL (0.0-0.2) Sodium Level 140 mmol/L (136-145) Potassium Level 4.4 mmol/L (3.5-5.1) Chloride Level 105 mmol/L (98-107) Carbon Dioxide Level 27 mmol/L (21-32) Anion Gap 8 (6-14) Blood Urea Nitrogen 24 mg/dL (8-26) Creatinine 1.6 mg/dL (0.7-1.3) H Estimated GFR (Cockcroft-Gault) 42.7 BUN/Creatinine Ratio 15 (6-20) Glucose Level 123 mg/dL (70-99) H Calcium Level 8.5 mg/dL (8.5-10.1) Total Bilirubin 0.3 mg/dL (0.2-1.0) Aspartate Amino Transferase (AST) 16 U/L (15-37) Alanine Aminotransferase (ALT) 33 U/L (16-63) Alkaline Phosphatase 53 U/L (46-116) Total Protein 7.2 g/dL (6.4-8.2) Albumin 3.5 g/dL (3.4-5.0) Albumin/Globulin Ratio 0.9 (1.0-1.7) L Glucose (Fingerstick) 104 mg/dL (70-99) H Current Medications: Meds: Laboratory Tests Test 11/20/20 06:08 11/20/20 07:28 White Blood Count 6.0 x10^3/uL Red Blood Count 3.89 x10^6/uL Hemoglobin 12.6 g/dL Hematocrit 37.1 % Mean Corpuscular Volume 95 fL Mean Corpuscular Hemoglobin 32 pg Mean Corpuscular Hemoglobin Concent 34 g/dL Red Cell Distribution Width 12.9 % Platelet Count 203 x10^3/uL Neutrophils (%) (Auto) 63 % Lymphocytes (%) (Auto) 25 % Monocytes (%) (Auto) 8 % Eosinophils (%) (Auto) 4 % Basophils (%) (Auto) 1 % Neutrophils # (Auto) 3.7 x10^3uL Lymphocytes # (Auto) 1.5 x10^3/uL Monocytes # (Auto) 0.5 x10^3/uL Eosinophils # (Auto) 0.2 x10^3/uL Basophils # (Auto) 0.0 x10^3/uL Sodium Level 140 mmol/L Potassium Level 4.4 mmol/L Chloride Level 105 mmol/L Carbon Dioxide Level 27 mmol/L Anion Gap 8 Blood Urea Nitrogen 24 mg/dL Creatinine 1.6 mg/dL Estimated GFR (Cockcroft-Gault) 42.7 BUN/Creatinine Ratio 15 Glucose Level 123 mg/dL Calcium Level 8.5 mg/dL Total Bilirubin 0.3 mg/dL Aspartate Amino Transf (AST/SGOT) 16 U/L Alanine Aminotransferase (ALT/SGPT) 33 U/L Alkaline Phosphatase 53 U/L Total Protein 7.2 g/dL Albumin 3.5 g/dL Albumin/Globulin Ratio 0.9 Glucose (Fingerstick) 104 mg/dL Current Medications Medications (Trade) Dose Ordered Sig/Delfina Route PRN Reason Start Time Stop Time Status Last Admin Dose Admin Acetaminophen (Tylenol) 650 mg PRN Q6HRS PRN PO pain or fever 11/15/20 05:00 11/16/20 21:26 Atorvastatin Calcium (Lipitor) 20 mg QHS PO 11/15/20 21:00 11/20/20 20:00 Cetirizine HCl (ZyrTEC) 10 mg DAILY PO 11/15/20 09:00 11/20/20 08:10 Duloxetine HCl (Cymbalta) 60 mg DAILY PO 11/15/20 09:00 11/20/20 08:10 Fluticasone Propionate (Flonase) 2 spray DAILY NS 11/15/20 09:00 11/20/20 08:11 Lisinopril (Prinivil) 10 mg DAILY PO 11/15/20 09:00 11/20/20 08:10 Meloxicam (Mobic) 7.5 mg DAILY PO 11/15/20 09:00 11/20/20 08:10 Memantine (Namenda) 10 mg BID PO 11/15/20 09:00 11/20/20 20:00 Propranolol HCl (Inderal) 10 mg BID PO 11/15/20 09:00 11/20/20 20:01 Quetiapine Fumarate (SEROquel) 25 mg QHS PO 11/15/20 21:00 11/20/20 20:00 Tamsulosin HCl (Flomax) 0.4 mg BID PO 11/15/20 09:00 11/20/20 20:01 Lactulose (Lactulose) 20 gm DAILY PO 11/15/20 09:00 11/20/20 08:11 Acetaminophen (Tylenol) 650 mg PRN Q6HRS PRN PO MILD PAIN / TEMP > 100.3'F 11/15/20 05:00 UNV Multi-Ingredient Ointment (Analgesic [place]) 1 eyal PRN QID PRN TP MUSCLE PAIN 11/15/20 05:00 Al Hydroxide/Mg Hydroxide (Mylanta Plus Xs) 15 ml PRN AFTMEALHC PRN PO DYSPEPSIA 11/15/20 05:00 Magnesium Hydroxide (Milk Of Magnesia) 2,400 mg PRN QHS PRN PO CONSTIPATION 11/15/20 05:00 Vitamin D (Vitamin D3) 50,000 unit WEEKLY PO 11/15/20 18:00 11/15/20 17:54 Aspirin (Aspirin Chewable) 81 mg DAILY ONCE PO 11/19/20 09:00 11/19/20 09:01 DC 11/19/20 09:24 Aspirin (Aspirin Chewable) 81 mg DAILY PO 11/20/20 09:30 11/20/20 12:23 Current Medications Medications (Trade) Dose Ordered Sig/Delfina Route PRN Reason Start Time Stop Time Status Last Admin Dose Admin Aspirin (Aspirin Chewable) 81 mg DAILY PO 11/20/20 09:30 11/20/20 12:23 I have reviewed the current psychotropics carefully including drug interactions. Risk benefit ratio favors no change other than as noted in my dictated progress note. Diagnosis: Problems: (1) Major depressive disorder with psychotic features (2) Impulse control disorder, unspecified (3) Anxiety disorder, unspecified (4) Dementia, vascular, with depression (5) Dementia, vascular, with delusions (6) Dementia in Alzheimer's disease with depression (7) Dementia in Alzheimer's disease with delusions (8) Dementia of the Alzheimer's type with early onset with behavioral disturbance (9) Major neurocognitive disorder NATALI RABAGO MD Nov 20, 2020 21:59
[2020-11-21 06:35] VITALS: BP 103/71
--- NOTE | 2020-11-21 07:43 | PDOC ---
Exam Note: Nilesh Note: This note is a late entry for 11/20/2020 covers elements not covered in my initial note. Subjective: The patient was seen individually in the evening of 11/20/2020 with Anthony GEORGE, discussed and reviewed the chart. The patient slept 7 hours previous night. He has been anxious, acting somewhat helpless asking to use a cane. Social service staff are coordinating discharge plans with the facility. I met with him in his room. Review of Systems: Ambulation impaired with walker. No CV, , pulmonary, eye, ENT system symptoms on review. Mental Status Exam: The patient is oriented to himself. He is quite obsessive, asking about discharge plans and I addressed with him at length. Insight and judgment, recent and remote memory, attention and concentration is poor consistent with his diagnoses. Laboratory Data: Reviewed. Impression: Major neurocognitive disorder Alzheimer vascular with delusion, depression, behavioral disturbance. Anxiety disorder unspecified. Impulse control disorder unspecified. Plan: No change from initial note. Assessment: Vital Signs/I&O: Vital Signs Date Time Temp Pulse Resp B/P (MAP) Pulse Ox O2 Delivery O2 Flow Rate FiO2 11/21/20 06:35 97.2 78 20 103/71 (82) 94 Room Air I & O 11/20/20 11/20/20 11/21/20 15:00 23:00 07:00 Intake Total 840 ml 360 ml Balance 840 ml 360 ml Labs: Laboratory Tests Test 11/21/20 07:35 Glucose (Fingerstick) 120 mg/dL (70-99) H Current Medications: Meds: Laboratory Tests Test 11/21/20 07:35 Glucose (Fingerstick) 120 mg/dL Current Medications Medications (Trade) Dose Ordered Sig/Delfina Route PRN Reason Start Time Stop Time Status Last Admin Dose Admin Acetaminophen (Tylenol) 650 mg PRN Q6HRS PRN PO pain or fever 11/15/20 05:00 11/16/20 21:26 Atorvastatin Calcium (Lipitor) 20 mg QHS PO 11/15/20 21:00 11/20/20 20:00 Cetirizine HCl (ZyrTEC) 10 mg DAILY PO 11/15/20 09:00 11/20/20 08:10 Duloxetine HCl (Cymbalta) 60 mg DAILY PO 11/15/20 09:00 11/20/20 08:10 Fluticasone Propionate (Flonase) 2 spray DAILY NS 11/15/20 09:00 11/20/20 08:11 Lisinopril (Prinivil) 10 mg DAILY PO 11/15/20 09:00 11/20/20 08:10 Meloxicam (Mobic) 7.5 mg DAILY PO 11/15/20 09:00 11/20/20 08:10 Memantine (Namenda) 10 mg BID PO 11/15/20 09:00 11/20/20 20:00 Propranolol HCl (Inderal) 10 mg BID PO 11/15/20 09:00 11/20/20 20:01 Quetiapine Fumarate (SEROquel) 25 mg QHS PO 11/15/20 21:00 11/20/20 20:00 Tamsulosin HCl (Flomax) 0.4 mg BID PO 11/15/20 09:00 11/20/20 20:01 Lactulose (Lactulose) 20 gm DAILY PO 11/15/20 09:00 11/20/20 08:11 Acetaminophen (Tylenol) 650 mg PRN Q6HRS PRN PO MILD PAIN / TEMP > 100.3'F 11/15/20 05:00 UNV Multi-Ingredient Ointment (Analgesic [place]) 1 eyal PRN QID PRN TP MUSCLE PAIN 11/15/20 05:00 Al Hydroxide/Mg Hydroxide (Mylanta Plus Xs) 15 ml PRN AFTMEALHC PRN PO DYSPEPSIA 11/15/20 05:00 Magnesium Hydroxide (Milk Of Magnesia) 2,400 mg PRN QHS PRN PO CONSTIPATION 11/15/20 05:00 Vitamin D (Vitamin D3) 50,000 unit WEEKLY PO 11/15/20 18:00 11/15/20 17:54 Aspirin (Aspirin Chewable) 81 mg DAILY ONCE PO 11/19/20 09:00 11/19/20 09:01 DC 11/19/20 09:24 Aspirin (Aspirin Chewable) 81 mg DAILY PO 11/20/20 09:30 11/20/20 12:23 Current Medications Medications (Trade) Dose Ordered Sig/Delfina Route PRN Reason Start Time Stop Time Status Last Admin Dose Admin Aspirin (Aspirin Chewable) 81 mg DAILY PO 11/20/20 09:30 11/20/20 12:23 I have reviewed the current psychotropics carefully including drug interactions. Risk benefit ratio favors no change other than as noted in my dictated progress note. Diagnosis: Problems: (1) Major depressive disorder with psychotic features (2) Impulse control disorder, unspecified (3) Anxiety disorder, unspecified (4) Dementia, vascular, with depression (5) Dementia, vascular, with delusions (6) Dementia in Alzheimer's disease with depression (7) Dementia in Alzheimer's disease with delusions (8) Dementia of the Alzheimer's type with early onset with behavioral disturbance (9) Major neurocognitive disorder NATALI RABAGO MD Nov 21, 2020 07:43
[2020-11-21] MEDS: LACTULOSE 20 GM/30 ML SOLUTION. PO SCH (08:22)
[2020-11-21] MEDS: ASPIRIN CHEWABLE 81 MG TABLET. PO SCH (08:22)
[2020-11-21] MEDS: MELOXICAM 7.5 MG TABLET PO SCH (08:22)
[2020-11-21] MEDS: LISINOPRIL 10 MG TABLET PO SCH (08:23)
[2020-11-21] MEDS: MEMANTINE 10 MG TABLET. PO SCH ×2 (08:23→21:02)
[2020-11-21] MEDS: DULoxetine HCL 60 MG CAPSULE.DR PO SCH (08:23)
[2020-11-21] MEDS: PROPRANOLOL 10 MG TABLET. PO SCH ×2 (08:23→21:02)
[2020-11-21] MEDS: CETIRIZINE HCL 10 MG TABLET PO SCH (08:23)
[2020-11-21] MEDS: TAMSULOSIN 0.4 MG CAP.ER.24H. PO SCH ×2 (08:23→21:02)
[2020-11-21] MEDS: FLUTICASONE 50MCG/NASAL SPRAY 16GM BOTTLE. NS SCH (08:24)
[2020-11-21 15:51] VITALS: BP 109/75
[2020-11-21] MEDS: ATORVASTATIN CALCIUM 20 MG TABLET PO SCH (21:02)
[2020-11-21] MEDS: QUEtiapine 25 MG TABLET. PO SCH (21:02)
--- NOTE | 2020-11-21 22:00 | PDOC ---
Exam Note: Nilesh Note: Please also refer to the separate dictated note~for this date of service dictated separately.~Patient seen individually. Discussed the patient with Nursing staff reviewed the chart.~Reviewed interim history and current functioning. Reviewed vital signs,~Labs/ Radiology~and current medications noted below. Continue current treatment with the changes noted in the dictated addendum note Assessment: Vital Signs/I&O: Vital Signs Date Time Temp Pulse Resp B/P (MAP) Pulse Ox O2 Delivery O2 Flow Rate FiO2 11/21/20 21:02 94 109/75 11/21/20 15:51 97.7 20 94 11/21/20 06:35 Room Air I & O 11/20/20 11/20/20 11/21/20 15:00 23:00 07:00 Intake Total 840 ml 360 ml Balance 840 ml 360 ml Labs: Laboratory Tests Test 11/21/20 07:35 Glucose (Fingerstick) 120 mg/dL (70-99) H Current Medications: Meds: Laboratory Tests Test 11/21/20 07:35 Glucose (Fingerstick) 120 mg/dL Current Medications Medications (Trade) Dose Ordered Sig/Delfina Route PRN Reason Start Time Stop Time Status Last Admin Dose Admin Acetaminophen (Tylenol) 650 mg PRN Q6HRS PRN PO pain or fever 11/15/20 05:00 11/16/20 21:26 Atorvastatin Calcium (Lipitor) 20 mg QHS PO 11/15/20 21:00 11/21/20 21:02 Cetirizine HCl (ZyrTEC) 10 mg DAILY PO 11/15/20 09:00 11/21/20 08:23 Duloxetine HCl (Cymbalta) 60 mg DAILY PO 11/15/20 09:00 11/21/20 08:23 Fluticasone Propionate (Flonase) 2 spray DAILY NS 11/15/20 09:00 11/21/20 08:24 Lisinopril (Prinivil) 10 mg DAILY PO 11/15/20 09:00 11/21/20 08:23 Meloxicam (Mobic) 7.5 mg DAILY PO 11/15/20 09:00 11/21/20 08:22 Memantine (Namenda) 10 mg BID PO 11/15/20 09:00 11/21/20 21:02 Propranolol HCl (Inderal) 10 mg BID PO 11/15/20 09:00 11/21/20 21:02 Quetiapine Fumarate (SEROquel) 25 mg QHS PO 11/15/20 21:00 11/21/20 21:02 Tamsulosin HCl (Flomax) 0.4 mg BID PO 11/15/20 09:00 11/21/20 21:02 Lactulose (Lactulose) 20 gm DAILY PO 11/15/20 09:00 11/21/20 08:22 Acetaminophen (Tylenol) 650 mg PRN Q6HRS PRN PO MILD PAIN / TEMP > 100.3'F 11/15/20 05:00 UNV Multi-Ingredient Ointment (Analgesic [place]) 1 eyal PRN QID PRN TP MUSCLE PAIN 11/15/20 05:00 Al Hydroxide/Mg Hydroxide (Mylanta Plus Xs) 15 ml PRN AFTMEALHC PRN PO DYSPEPSIA 11/15/20 05:00 Magnesium Hydroxide (Milk Of Magnesia) 2,400 mg PRN QHS PRN PO CONSTIPATION 11/15/20 05:00 Vitamin D (Vitamin D3) 50,000 unit WEEKLY PO 11/15/20 18:00 11/15/20 17:54 Aspirin (Aspirin Chewable) 81 mg DAILY ONCE PO 11/19/20 09:00 11/19/20 09:01 DC 11/19/20 09:24 Aspirin (Aspirin Chewable) 81 mg DAILY PO 11/20/20 09:30 11/21/20 08:22 I have reviewed the current psychotropics carefully including drug interactions. Risk benefit ratio favors no change other than as noted in my dictated progress note. Diagnosis: Problems: (1) Major depressive disorder with psychotic features (2) Impulse control disorder, unspecified (3) Anxiety disorder, unspecified (4) Dementia, vascular, with depression (5) Dementia, vascular, with delusions (6) Dementia in Alzheimer's disease with depression (7) Dementia in Alzheimer's disease with delusions (8) Dementia of the Alzheimer's type with early onset with behavioral disturbance (9) Major neurocognitive disorder NATALI RABAGO MD Nov 21, 2020 22:00
[2020-11-22 06:26] VITALS: BP 109/71
--- NOTE | 2020-11-22 07:06 | PDOC ---
Exam Note: Nilesh Note: This note is a late entry for 11/21/2020 covers elements not covered in my initial note. Subjective: The patient was seen individually in the evening of 11/21/2020 with Anthony GEORGE, discussed and reviewed the chart. The patient slept 4-3/4 hours previous night. He has some short-term memory deficits. This evening he was talking to me and requesting to be discharged early; otherwise, he would lose his job. He was calmer in the daytime watching television. Review of Systems: Ambulation impaired with walker. No CV, , pulmonary, eye, ENT system symptoms on review. Mental Status Exam: The patient is oriented to himself. I met with him in his room at length. He was obsessing about discharge plans and I addressed this with him. Insight and judgment, recent and remote memory, attention and concentration is poor consistent with his diagnoses. Laboratory Data: Reviewed. Impression: Major neurocognitive disorder Alzheimer vascular with delusion, depression, behavioral disturbance. Anxiety disorder unspecified. Impulse control disorder unspecified. Plan: No change from initial note. Assessment: Vital Signs/I&O: Vital Signs Date Time Temp Pulse Resp B/P (MAP) Pulse Ox O2 Delivery O2 Flow Rate FiO2 11/22/20 06:26 98.0 80 16 109/71 (84) 95 11/21/20 06:35 Room Air I & O 11/21/20 11/21/20 11/22/20 15:00 23:00 07:00 Intake Total 580 ml 480 ml Balance 580 ml 480 ml Labs: Laboratory Tests Test 11/21/20 07:35 Glucose (Fingerstick) 120 mg/dL (70-99) H Current Medications: Meds: Laboratory Tests Test 11/21/20 07:35 Glucose (Fingerstick) 120 mg/dL Current Medications Medications (Trade) Dose Ordered Sig/Delfina Route PRN Reason Start Time Stop Time Status Last Admin Dose Admin Acetaminophen (Tylenol) 650 mg PRN Q6HRS PRN PO pain or fever 11/15/20 05:00 11/16/20 21:26 Atorvastatin Calcium (Lipitor) 20 mg QHS PO 11/15/20 21:00 11/21/20 21:02 Cetirizine HCl (ZyrTEC) 10 mg DAILY PO 11/15/20 09:00 11/21/20 08:23 Duloxetine HCl (Cymbalta) 60 mg DAILY PO 11/15/20 09:00 11/21/20 08:23 Fluticasone Propionate (Flonase) 2 spray DAILY NS 11/15/20 09:00 11/21/20 08:24 Lisinopril (Prinivil) 10 mg DAILY PO 11/15/20 09:00 11/21/20 08:23 Meloxicam (Mobic) 7.5 mg DAILY PO 11/15/20 09:00 11/21/20 08:22 Memantine (Namenda) 10 mg BID PO 11/15/20 09:00 11/21/20 21:02 Propranolol HCl (Inderal) 10 mg BID PO 11/15/20 09:00 11/21/20 21:02 Quetiapine Fumarate (SEROquel) 25 mg QHS PO 11/15/20 21:00 11/21/20 21:02 Tamsulosin HCl (Flomax) 0.4 mg BID PO 11/15/20 09:00 11/21/20 21:02 Lactulose (Lactulose) 20 gm DAILY PO 11/15/20 09:00 11/21/20 08:22 Acetaminophen (Tylenol) 650 mg PRN Q6HRS PRN PO MILD PAIN / TEMP > 100.3'F 11/15/20 05:00 UNV Multi-Ingredient Ointment (Analgesic [place]) 1 eyal PRN QID PRN TP MUSCLE PAIN 11/15/20 05:00 Al Hydroxide/Mg Hydroxide (Mylanta Plus Xs) 15 ml PRN AFTMEALHC PRN PO DYSPEPSIA 11/15/20 05:00 Magnesium Hydroxide (Milk Of Magnesia) 2,400 mg PRN QHS PRN PO CONSTIPATION 11/15/20 05:00 Vitamin D (Vitamin D3) 50,000 unit WEEKLY PO 11/15/20 18:00 11/15/20 17:54 Aspirin (Aspirin Chewable) 81 mg DAILY ONCE PO 11/19/20 09:00 11/19/20 09:01 DC 11/19/20 09:24 Aspirin (Aspirin Chewable) 81 mg DAILY PO 11/20/20 09:30 11/21/20 08:22 I have reviewed the current psychotropics carefully including drug interactions. Risk benefit ratio favors no change other than as noted in my dictated progress note. Diagnosis: Problems: (1) Major depressive disorder with psychotic features (2) Impulse control disorder, unspecified (3) Anxiety disorder, unspecified (4) Dementia, vascular, with depression (5) Dementia, vascular, with delusions (6) Dementia in Alzheimer's disease with depression (7) Dementia in Alzheimer's disease with delusions (8) Dementia of the Alzheimer's type with early onset with behavioral disturbance (9) Major neurocognitive disorder NATALI RABAGO MD Nov 22, 2020 07:06
[2020-11-22] MEDS: LACTULOSE 20 GM/30 ML SOLUTION. PO SCH (08:44)
[2020-11-22] MEDS: LISINOPRIL 10 MG TABLET PO SCH (08:44)
[2020-11-22] MEDS: MEMANTINE 10 MG TABLET. PO SCH ×2 (08:44→20:13)
[2020-11-22] MEDS: MELOXICAM 7.5 MG TABLET PO SCH (08:44)
[2020-11-22] MEDS: TAMSULOSIN 0.4 MG CAP.ER.24H. PO SCH ×2 (08:44→20:13)
[2020-11-22] MEDS: PROPRANOLOL 10 MG TABLET. PO SCH ×2 (08:45→20:14)
[2020-11-22] MEDS: FLUTICASONE 50MCG/NASAL SPRAY 16GM BOTTLE. NS SCH (08:45)
[2020-11-22] MEDS: ASPIRIN CHEWABLE 81 MG TABLET. PO SCH (08:45)
[2020-11-22] MEDS: DULoxetine HCL 60 MG CAPSULE.DR PO SCH (08:48)
[2020-11-22] MEDS: CETIRIZINE HCL 10 MG TABLET PO SCH (08:48)
[2020-11-22] MEDS: CHOLECALCIFEROL (VITAMIN D3) 50,000 UNIT CAPSULE PO SCH (09:00)
--- NOTE | 2020-11-22 15:25 | TX PLAN ---
Interdisciplinary Tx Plan Admission Information Nov 15, 2020 at 04:04 Legal Status (on Admission): Voluntary DPOA/Guardian Name: Karen EagleStep-dtr Contact Other Contact Name: Cherelle Other Contact Verified Code Status: DNR Allergies: Coded Allergies: No Known Drug Allergies (Unverified , 11/14/20) Diagnoses Primary Diagnosis: Depression, Anxiety, Dementia Reasons for Admission: Sig. Change Sleep, Anxiety/Panic, Hallucinations, Confusion/Disoriented Problem in Patient's Words: Per DPOA, pt has dementia that was diagnosed about 2 years ago. He see animals and [place] flying out of the TV. Per facility, pt was exhibiting true feelings of fear r/t the things he was seeing and thinking. Additional Admission Comments: Per intake, insomnia, anxious, reports the door is melting off the hinges, seeing things upside down, thinks water is coming out of the electrical cords, states to staff that he thinks it's his time to go, believes comes to him at night and they have had sex. Problems Active Problems: hallucinations, delusions, fearfulness, anxiety Inactive Problems: None at this time Pt Strengths/Limitations Ability for [place]: Poor Cognitive Functioning/Ability: Fair Communication Skills/Ability: Fair Financial Resources: Poor Insight/Judgement: Poor Intellectual Ability: Poor Physical Health: Poor Social Skills: Fair Stability in Family: Poor Stability in School/Work: Poor Verbal Skills: Fair Discharge Criteria Discharge Criteria: No need for close observ., Adequate arrangements @DC, Verbal commit med comply, Improved behavior, Improved mood/thought Preliminary Discharge Plan Preliminary DC Plan: Current Living Arrange. Special Precautions Special Precautions: Suicide Risk Fall Risk: Moderate Other Precautions (specify): Uses a cane. Initial D/C Plan Pt plan is to return to [facility]. Identified Discharge Needs: None at this time. Currently Utilized Resources Currently Utilized Resources/P: PCP-Dr. Nathaniel YOUNGBLOOD-[facility] LEANDRO-Shirin Referrals Community Resources: None noted at this time. Identified Problems/Hx/Goals Objectives/Short-Term Goals Short Term Goals: Control abnormal behavior, Dec. Anxiety/Panic, Dec. Hallucin ation/Delus, Dec. Symp. Depression, Medication Stabilization, Monitor Med Effects Short Term Goals in Patient's: to have medications evaluated and adjusted. Stop seeing things that aren't there and not feel fear. 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 Education: Pt only has 5th grade education and struggles communicating his feelings. Community Follow-up PCP Community Provider/Family Inpu: FORD is aware that pt has arrived to [facility]. DPOA has provided input in pt social history and is available for further information if needed. Treatment Plan Explained Patient/Housekeeping Manager had this treatment plan explained to him/her as indicated by the signature below and has been given the opportunity to ask questions and make suggestions: Date: Patient/Housekeeping Manager Signature: Status Update Update Pt sleeping an average of 7 hours at night and eating 87% of his meals. Pt is appropriate, pleasant, and medication compliant. Pt is A/O X 3. Pt unable to tell staff what the date is. Pt stating that he is ready to discharge, yet there is some concern of pt still having some hallucinations. Pt appears to have increased confusion during the evenings. Pt will continue to be monitored and have medications adjusted as indicated. Pt will return to [facility] once stable. GREGOR MENDOZA Nov 22, 2020 15:25
[2020-11-22 16:09] VITALS: BP 127/90
[2020-11-22] MEDS: QUEtiapine 25 MG TABLET. PO SCH (20:13)
[2020-11-22] MEDS: ATORVASTATIN CALCIUM 20 MG TABLET PO SCH (20:14)
--- NOTE | 2020-11-22 22:18 | PDOC ---
Exam Note: Nilesh Note: Please also refer to the separate dictated note~for this date of service dictated separately.~Patient seen individually. Discussed the patient with Nursing staff reviewed the chart.~Reviewed interim history and current functioning. Reviewed vital signs,~Labs/ Radiology~and current medications noted below. Continue current treatment with the changes noted in the dictated addendum note Assessment: Vital Signs/I&O: Vital Signs Date Time Temp Pulse Resp B/P (MAP) Pulse Ox O2 Delivery O2 Flow Rate FiO2 11/22/20 20:14 97 127/90 11/22/20 16:09 97.9 20 94 11/21/20 06:35 Room Air I & O 11/21/20 11/21/20 11/22/20 15:00 23:00 07:00 Intake Total 580 ml 480 ml Balance 580 ml 480 ml Labs: Laboratory Tests Test 11/22/20 07:40 Glucose (Fingerstick) 111 mg/dL (70-99) H Current Medications: Meds: Laboratory Tests Test 11/22/20 07:40 Glucose (Fingerstick) 111 mg/dL Current Medications Medications (Trade) Dose Ordered Sig/Delfina Route PRN Reason Start Time Stop Time Status Last Admin Dose Admin Acetaminophen (Tylenol) 650 mg PRN Q6HRS PRN PO pain or fever 11/15/20 05:00 11/16/20 21:26 Atorvastatin Calcium (Lipitor) 20 mg QHS PO 11/15/20 21:00 11/22/20 20:14 Cetirizine HCl (ZyrTEC) 10 mg DAILY PO 11/15/20 09:00 11/22/20 08:48 Duloxetine HCl (Cymbalta) 60 mg DAILY PO 11/15/20 09:00 11/22/20 08:48 Fluticasone Propionate (Flonase) 2 spray DAILY NS 11/15/20 09:00 11/22/20 08:45 Lisinopril (Prinivil) 10 mg DAILY PO 11/15/20 09:00 11/22/20 08:44 Meloxicam (Mobic) 7.5 mg DAILY PO 11/15/20 09:00 11/22/20 08:44 Memantine (Namenda) 10 mg BID PO 11/15/20 09:00 11/22/20 20:13 Propranolol HCl (Inderal) 10 mg BID PO 11/15/20 09:00 11/22/20 20:14 Quetiapine Fumarate (SEROquel) 25 mg QHS PO 11/15/20 21:00 11/22/20 20:13 Tamsulosin HCl (Flomax) 0.4 mg BID PO 11/15/20 09:00 11/22/20 20:13 Lactulose (Lactulose) 20 gm DAILY PO 11/15/20 09:00 11/22/20 08:44 Acetaminophen (Tylenol) 650 mg PRN Q6HRS PRN PO MILD PAIN / TEMP > 100.3'F 11/15/20 05:00 UNV Multi-Ingredient Ointment (Analgesic [place]) 1 eyal PRN QID PRN TP MUSCLE PAIN 11/15/20 05:00 Al Hydroxide/Mg Hydroxide (Mylanta Plus Xs) 15 ml PRN AFTMEALHC PRN PO DYSPEPSIA 11/15/20 05:00 11/22/20 13:15 Magnesium Hydroxide (Milk Of Magnesia) 2,400 mg PRN QHS PRN PO CONSTIPATION 11/15/20 05:00 Vitamin D (Vitamin D3) 50,000 unit WEEKLY PO 11/15/20 18:00 11/22/20 09:00 Aspirin (Aspirin Chewable) 81 mg DAILY ONCE PO 11/19/20 09:00 11/19/20 09:01 DC 11/19/20 09:24 Aspirin (Aspirin Chewable) 81 mg DAILY PO 11/20/20 09:30 11/22/20 08:45 I have reviewed the current psychotropics carefully including drug interactions. Risk benefit ratio favors no change other than as noted in my dictated progress note. Diagnosis: Problems: (1) Major depressive disorder with psychotic features (2) Impulse control disorder, unspecified (3) Anxiety disorder, unspecified (4) Dementia, vascular, with depression (5) Dementia, vascular, with delusions (6) Dementia in Alzheimer's disease with depression (7) Dementia in Alzheimer's disease with delusions (8) Dementia of the Alzheimer's type with early onset with behavioral disturbance (9) Major neurocognitive disorder NATALI RABAGO MD Nov 22, 2020 22:18
[2020-11-23 05:51] VITALS: BP 121/77
--- NOTE | 2020-11-23 06:54 | PDOC ---
Exam Note: Nilesh Note: This note is a late entry for 11/22/2020 covers elements not covered in my initial note. Subjective: The patient was reviewed in the morning of 11/22/2020 for a treatment team meeting with Amy Paulino, Pebbles Drew and Christa (social insurance administrator), Reina, activity therapy and Jade RN, discussed and reviewed the chart. The patient slept 6-1/2 hours previous night. He has been alert and oriented x3. We reviewed his history and he has 8th grade education. No hallucinations noted. Prior to admission he was having vague hallucinations including feeling things around him were melting. He felt things were upside down and that his had come to him to have sex. None of this has been evident recently on our unit. He is somewhat obsessive about discharge and I addressed this with him. Review of Systems: Ambulation impaired with walker. No CV, , pulmonary, eye, ENT system symptoms on review. Mental Status Exam: The patient is oriented to himself. Insight and judgment, recent and remote memory, attention and concentration is poor consistent with his diagnoses. Laboratory Data: Reviewed. Impression: Major neurocognitive disorder Alzheimer vascular with delusion, depression, behavioral disturbance. Anxiety disorder unspecified. Impulse control disorder unspecified. Plan: Continue the patient on his current psychotropics Seroquel 25 mg h.s., Namenda ER 28 mg a day, Cymbalta 60 mg a day. Transition to intermediate to be facilitated by social service staff. Assessment: Vital Signs/I&O: Vital Signs Date Time Temp Pulse Resp B/P (MAP) Pulse Ox O2 Delivery O2 Flow Rate FiO2 11/23/20 05:51 98.1 78 18 121/77 (92) 95 11/21/20 06:35 Room Air I & O 11/22/20 11/22/20 11/23/20 15:00 23:00 07:00 Intake Total 580 ml 480 ml Balance 580 ml 480 ml Labs: Laboratory Tests Test 11/22/20 07:40 Glucose (Fingerstick) 111 mg/dL (70-99) H Current Medications: Meds: Laboratory Tests Test 11/22/20 07:40 Glucose (Fingerstick) 111 mg/dL Current Medications Medications (Trade) Dose Ordered Sig/Delfina Route PRN Reason Start Time Stop Time Status Last Admin Dose Admin Acetaminophen (Tylenol) 650 mg PRN Q6HRS PRN PO pain or fever 11/15/20 05:00 11/16/20 21:26 Atorvastatin Calcium (Lipitor) 20 mg QHS PO 11/15/20 21:00 11/22/20 20:14 Cetirizine HCl (ZyrTEC) 10 mg DAILY PO 11/15/20 09:00 11/22/20 08:48 Duloxetine HCl (Cymbalta) 60 mg DAILY PO 11/15/20 09:00 11/22/20 08:48 Fluticasone Propionate (Flonase) 2 spray DAILY NS 11/15/20 09:00 11/22/20 08:45 Lisinopril (Prinivil) 10 mg DAILY PO 11/15/20 09:00 11/22/20 08:44 Meloxicam (Mobic) 7.5 mg DAILY PO 11/15/20 09:00 11/22/20 08:44 Memantine (Namenda) 10 mg BID PO 11/15/20 09:00 11/22/20 20:13 Propranolol HCl (Inderal) 10 mg BID PO 11/15/20 09:00 11/22/20 20:14 Quetiapine Fumarate (SEROquel) 25 mg QHS PO 11/15/20 21:00 11/22/20 20:13 Tamsulosin HCl (Flomax) 0.4 mg BID PO 11/15/20 09:00 11/22/20 20:13 Lactulose (Lactulose) 20 gm DAILY PO 11/15/20 09:00 11/22/20 08:44 Acetaminophen (Tylenol) 650 mg PRN Q6HRS PRN PO MILD PAIN / TEMP > 100.3'F 11/15/20 05:00 UNV Multi-Ingredient Ointment (Analgesic [place]) 1 eyal PRN QID PRN TP MUSCLE PAIN 11/15/20 05:00 Al Hydroxide/Mg Hydroxide (Mylanta Plus Xs) 15 ml PRN AFTMEALHC PRN PO DYSPEPSIA 11/15/20 05:00 11/22/20 13:15 Magnesium Hydroxide (Milk Of Magnesia) 2,400 mg PRN QHS PRN PO CONSTIPATION 11/15/20 05:00 Vitamin D (Vitamin D3) 50,000 unit WEEKLY PO 11/15/20 18:00 11/22/20 09:00 Aspirin (Aspirin Chewable) 81 mg DAILY ONCE PO 11/19/20 09:00 11/19/20 09:01 DC 11/19/20 09:24 Aspirin (Aspirin Chewable) 81 mg DAILY PO 11/20/20 09:30 11/22/20 08:45 I have reviewed the current psychotropics carefully including drug interactions. Risk benefit ratio favors no change other than as noted in my dictated progress note. Diagnosis: Problems: (1) Major depressive disorder with psychotic features (2) Impulse control disorder, unspecified (3) Anxiety disorder, unspecified (4) Dementia, vascular, with depression (5) Dementia, vascular, with delusions (6) Dementia in Alzheimer's disease with depression (7) Dementia in Alzheimer's disease with delusions (8) Dementia of the Alzheimer's type with early onset with behavioral disturbance (9) Major neurocognitive disorder NATALI RABAGO MD Nov 23, 2020 06:54
[2020-11-23] MEDS: TAMSULOSIN 0.4 MG CAP.ER.24H. PO SCH ×2 (08:43→20:56)
[2020-11-23] MEDS: CETIRIZINE HCL 10 MG TABLET PO SCH (08:43)
[2020-11-23] MEDS: LISINOPRIL 10 MG TABLET PO SCH (08:44)
[2020-11-23] MEDS: MELOXICAM 7.5 MG TABLET PO SCH (08:45)
[2020-11-23] MEDS: DULoxetine HCL 60 MG CAPSULE.DR PO SCH (08:45)
[2020-11-23] MEDS: ASPIRIN CHEWABLE 81 MG TABLET. PO SCH (08:45)
[2020-11-23] MEDS: LACTULOSE 20 GM/30 ML SOLUTION. PO SCH (08:45)
[2020-11-23] MEDS: MEMANTINE 10 MG TABLET. PO SCH ×2 (08:45→20:56)
[2020-11-23] MEDS: PROPRANOLOL 10 MG TABLET. PO SCH ×2 (08:46→20:56)
[2020-11-23] MEDS: FLUTICASONE 50MCG/NASAL SPRAY 16GM BOTTLE. NS SCH (08:48)
[2020-11-23 16:18] VITALS: BP 143/86
[2020-11-23] MEDS: QUEtiapine 25 MG TABLET. PO SCH (20:55)
[2020-11-23] MEDS: ATORVASTATIN CALCIUM 20 MG TABLET PO SCH (20:55)
--- NOTE | 2020-11-23 22:15 | PDOC ---
Exam Note: Nilesh Note: Please also refer to the separate dictated note~for this date of service dictated separately.~Patient seen individually. Discussed the patient with Nursing staff reviewed the chart.~Reviewed interim history and current functioning. Reviewed vital signs,~Labs/ Radiology~and current medications noted below. Continue current treatment with the changes noted in the dictated addendum note Assessment: Vital Signs/I&O: Vital Signs Date Time Temp Pulse Resp B/P (MAP) Pulse Ox O2 Delivery O2 Flow Rate FiO2 11/23/20 20:56 94 143/86 11/23/20 16:18 98.6 20 97 Room Air I & O 11/22/20 11/22/20 11/23/20 15:00 23:00 07:00 Intake Total 580 ml 480 ml Balance 580 ml 480 ml Labs: Laboratory Tests Test 11/23/20 07:42 Glucose (Fingerstick) 156 mg/dL (70-99) H Current Medications: Meds: Laboratory Tests Test 11/23/20 07:42 Glucose (Fingerstick) 156 mg/dL Current Medications Medications (Trade) Dose Ordered Sig/Delfina Route PRN Reason Start Time Stop Time Status Last Admin Dose Admin Acetaminophen (Tylenol) 650 mg PRN Q6HRS PRN PO pain or fever 11/15/20 05:00 11/16/20 21:26 Atorvastatin Calcium (Lipitor) 20 mg QHS PO 11/15/20 21:00 11/23/20 20:55 Cetirizine HCl (ZyrTEC) 10 mg DAILY PO 11/15/20 09:00 11/23/20 08:43 Duloxetine HCl (Cymbalta) 60 mg DAILY PO 11/15/20 09:00 11/23/20 08:45 Fluticasone Propionate (Flonase) 2 spray DAILY NS 11/15/20 09:00 11/23/20 08:48 Lisinopril (Prinivil) 10 mg DAILY PO 11/15/20 09:00 11/23/20 08:44 Meloxicam (Mobic) 7.5 mg DAILY PO 11/15/20 09:00 11/23/20 08:45 Memantine (Namenda) 10 mg BID PO 11/15/20 09:00 11/23/20 20:56 Propranolol HCl (Inderal) 10 mg BID PO 11/15/20 09:00 11/23/20 20:56 Quetiapine Fumarate (SEROquel) 25 mg QHS PO 11/15/20 21:00 11/23/20 20:55 Tamsulosin HCl (Flomax) 0.4 mg BID PO 11/15/20 09:00 11/23/20 20:56 Lactulose (Lactulose) 20 gm DAILY PO 11/15/20 09:00 11/23/20 08:45 Acetaminophen (Tylenol) 650 mg PRN Q6HRS PRN PO MILD PAIN / TEMP > 100.3'F 11/15/20 05:00 UNV Multi-Ingredient Ointment (Analgesic [place]) 1 eyal PRN QID PRN TP MUSCLE PAIN 11/15/20 05:00 Al Hydroxide/Mg Hydroxide (Mylanta Plus Xs) 15 ml PRN AFTMEALHC PRN PO DYSPEPSIA 11/15/20 05:00 11/22/20 13:15 Magnesium Hydroxide (Milk Of Magnesia) 2,400 mg PRN QHS PRN PO CONSTIPATION 11/15/20 05:00 Vitamin D (Vitamin D3) 50,000 unit WEEKLY PO 11/15/20 18:00 11/22/20 09:00 Aspirin (Aspirin Chewable) 81 mg DAILY ONCE PO 11/19/20 09:00 11/19/20 09:01 DC 11/19/20 09:24 Aspirin (Aspirin Chewable) 81 mg DAILY PO 11/20/20 09:30 11/23/20 08:45 I have reviewed the current psychotropics carefully including drug interactions. Risk benefit ratio favors no change other than as noted in my dictated progress note. Diagnosis: Problems: (1) Major depressive disorder with psychotic features (2) Impulse control disorder, unspecified (3) Anxiety disorder, unspecified (4) Dementia, vascular, with depression (5) Dementia, vascular, with delusions (6) Dementia in Alzheimer's disease with depression (7) Dementia in Alzheimer's disease with delusions (8) Dementia of the Alzheimer's type with early onset with behavioral disturbance (9) Major neurocognitive disorder NATALI RABAGO MD Nov 23, 2020 22:15
[2020-11-24 06:43] VITALS: BP 138/74
--- NOTE | 2020-11-24 07:37 | PDOC ---
Exam Note: Nilesh Note: This note is a late entry for 11/23/2020 covers elements not covered in my initial note. Subjective: The patient was seen individually in the evening of 11/23/2020 with Jamari GEORGE, discussed and reviewed the chart. The patient slept 7-1/4 hours previous night. He has been more interactive, going out to the TV area and interacting with others. No inappropriate delusions or inappropriate sexual statements noted. Review of Systems: Ambulation impaired with walker. No CV, , pulmonary, eye, ENT system symptoms on review. Mental Status Exam: The patient is oriented to himself. Insight and judgment, recent and remote memory, attention and concentration is poor consistent with his diagnoses. Laboratory Data: Reviewed. Impression: Major neurocognitive disorder Alzheimer vascular with delusion, depression, behavioral disturbance. Anxiety disorder unspecified. Impulse control disorder unspecified. Plan: Continue the patient on his current psychotropics. Assessment: Vital Signs/I&O: Vital Signs Date Time Temp Pulse Resp B/P (MAP) Pulse Ox O2 Delivery O2 Flow Rate FiO2 11/24/20 06:43 98.7 77 20 138/74 (95) 99 Room Air I & O 11/23/20 11/23/20 11/24/20 15:00 23:00 07:00 Intake Total 600 ml 120 ml Balance 600 ml 120 ml Labs: Laboratory Tests Test 11/23/20 07:42 Glucose (Fingerstick) 156 mg/dL (70-99) H Current Medications: Meds: Laboratory Tests Test 11/23/20 07:42 Glucose (Fingerstick) 156 mg/dL Current Medications Medications (Trade) Dose Ordered Sig/Delfina Route PRN Reason Start Time Stop Time Status Last Admin Dose Admin Acetaminophen (Tylenol) 650 mg PRN Q6HRS PRN PO pain or fever 11/15/20 05:00 11/16/20 21:26 Atorvastatin Calcium (Lipitor) 20 mg QHS PO 11/15/20 21:00 11/23/20 20:55 Cetirizine HCl (ZyrTEC) 10 mg DAILY PO 11/15/20 09:00 11/23/20 08:43 Duloxetine HCl (Cymbalta) 60 mg DAILY PO 11/15/20 09:00 11/23/20 08:45 Fluticasone Propionate (Flonase) 2 spray DAILY NS 11/15/20 09:00 11/23/20 08:48 Lisinopril (Prinivil) 10 mg DAILY PO 11/15/20 09:00 11/23/20 08:44 Meloxicam (Mobic) 7.5 mg DAILY PO 11/15/20 09:00 11/23/20 08:45 Memantine (Namenda) 10 mg BID PO 11/15/20 09:00 11/23/20 20:56 Propranolol HCl (Inderal) 10 mg BID PO 11/15/20 09:00 11/23/20 20:56 Quetiapine Fumarate (SEROquel) 25 mg QHS PO 11/15/20 21:00 11/23/20 20:55 Tamsulosin HCl (Flomax) 0.4 mg BID PO 11/15/20 09:00 11/23/20 20:56 Lactulose (Lactulose) 20 gm DAILY PO 11/15/20 09:00 11/23/20 08:45 Acetaminophen (Tylenol) 650 mg PRN Q6HRS PRN PO MILD PAIN / TEMP > 100.3'F 11/15/20 05:00 UNV Multi-Ingredient Ointment (Analgesic [place]) 1 eyal PRN QID PRN TP MUSCLE PAIN 11/15/20 05:00 Al Hydroxide/Mg Hydroxide (Mylanta Plus Xs) 15 ml PRN AFTMEALHC PRN PO DYSPEPSIA 11/15/20 05:00 11/22/20 13:15 Magnesium Hydroxide (Milk Of Magnesia) 2,400 mg PRN QHS PRN PO CONSTIPATION 11/15/20 05:00 Vitamin D (Vitamin D3) 50,000 unit WEEKLY PO 11/15/20 18:00 11/22/20 09:00 Aspirin (Aspirin Chewable) 81 mg DAILY ONCE PO 11/19/20 09:00 11/19/20 09:01 DC 11/19/20 09:24 Aspirin (Aspirin Chewable) 81 mg DAILY PO 11/20/20 09:30 11/23/20 08:45 I have reviewed the current psychotropics carefully including drug interactions. Risk benefit ratio favors no change other than as noted in my dictated progress note. Diagnosis: Problems: (1) Major depressive disorder with psychotic features (2) Impulse control disorder, unspecified (3) Anxiety disorder, unspecified (4) Dementia, vascular, with depression (5) Dementia, vascular, with delusions (6) Dementia in Alzheimer's disease with depression (7) Dementia in Alzheimer's disease with delusions (8) Dementia of the Alzheimer's type with early onset with behavioral disturbance (9) Major neurocognitive disorder NATALI RABAGO MD Nov 24, 2020 07:36
[2020-11-24] MEDS: MELOXICAM 7.5 MG TABLET PO SCH (08:02)
[2020-11-24] MEDS: LACTULOSE 20 GM/30 ML SOLUTION. PO SCH (08:02)
[2020-11-24] MEDS: PROPRANOLOL 10 MG TABLET. PO SCH ×2 (08:02→19:55)
[2020-11-24] MEDS: DULoxetine HCL 60 MG CAPSULE.DR PO SCH (08:02)
[2020-11-24] MEDS: ASPIRIN CHEWABLE 81 MG TABLET. PO SCH (08:02)
[2020-11-24] MEDS: CETIRIZINE HCL 10 MG TABLET PO SCH (08:02)
[2020-11-24] MEDS: TAMSULOSIN 0.4 MG CAP.ER.24H. PO SCH ×2 (08:03→19:55)
[2020-11-24] MEDS: MEMANTINE 10 MG TABLET. PO SCH ×2 (08:03→19:55)
[2020-11-24] MEDS: LISINOPRIL 10 MG TABLET PO SCH (08:03)
[2020-11-24] MEDS: FLUTICASONE 50MCG/NASAL SPRAY 16GM BOTTLE. NS SCH (08:05)
[2020-11-24 16:19] VITALS: BP 115/80
[2020-11-24] MEDS: QUEtiapine 25 MG TABLET. PO SCH (19:56)
[2020-11-24] MEDS: ATORVASTATIN CALCIUM 20 MG TABLET PO SCH (19:56)
--- NOTE | 2020-11-24 22:03 | PDOC ---
Exam Note: Nilesh Note: Please also refer to the separate dictated note~for this date of service dictated separately.~Patient seen individually. Discussed the patient with Nursing staff reviewed the chart.~Reviewed interim history and current functioning. Reviewed vital signs,~Labs/ Radiology~and current medications noted below. Continue current treatment with the changes noted in the dictated addendum note Assessment: Vital Signs/I&O: Vital Signs Date Time Temp Pulse Resp B/P (MAP) Pulse Ox O2 Delivery O2 Flow Rate FiO2 11/24/20 19:55 98 115/80 11/24/20 16:19 98.2 17 93 Room Air I & O 11/23/20 11/23/20 11/24/20 15:00 23:00 07:00 Intake Total 600 ml 120 ml Balance 600 ml 120 ml Labs: Laboratory Tests Test 11/24/20 07:45 Glucose (Fingerstick) 110 mg/dL (70-99) H Current Medications: Meds: Laboratory Tests Test 11/24/20 07:45 Glucose (Fingerstick) 110 mg/dL Current Medications Medications (Trade) Dose Ordered Sig/Delfina Route PRN Reason Start Time Stop Time Status Last Admin Dose Admin Acetaminophen (Tylenol) 650 mg PRN Q6HRS PRN PO pain or fever 11/15/20 05:00 11/16/20 21:26 Atorvastatin Calcium (Lipitor) 20 mg QHS PO 11/15/20 21:00 11/24/20 19:56 Cetirizine HCl (ZyrTEC) 10 mg DAILY PO 11/15/20 09:00 11/24/20 08:02 Duloxetine HCl (Cymbalta) 60 mg DAILY PO 11/15/20 09:00 11/24/20 08:02 Fluticasone Propionate (Flonase) 2 spray DAILY NS 11/15/20 09:00 11/24/20 08:05 Lisinopril (Prinivil) 10 mg DAILY PO 11/15/20 09:00 11/24/20 08:03 Meloxicam (Mobic) 7.5 mg DAILY PO 11/15/20 09:00 11/24/20 08:02 Memantine (Namenda) 10 mg BID PO 11/15/20 09:00 11/24/20 19:55 Propranolol HCl (Inderal) 10 mg BID PO 11/15/20 09:00 11/24/20 19:55 Quetiapine Fumarate (SEROquel) 25 mg QHS PO 11/15/20 21:00 11/24/20 19:56 Tamsulosin HCl (Flomax) 0.4 mg BID PO 11/15/20 09:00 11/24/20 19:55 Lactulose (Lactulose) 20 gm DAILY PO 11/15/20 09:00 11/24/20 08:02 Acetaminophen (Tylenol) 650 mg PRN Q6HRS PRN PO MILD PAIN / TEMP > 100.3'F 11/15/20 05:00 UNV Multi-Ingredient Ointment (Analgesic [place]) 1 eyal PRN QID PRN TP MUSCLE PAIN 11/15/20 05:00 Al Hydroxide/Mg Hydroxide (Mylanta Plus Xs) 15 ml PRN AFTMEALHC PRN PO DYSPEPSIA 11/15/20 05:00 11/22/20 13:15 Magnesium Hydroxide (Milk Of Magnesia) 2,400 mg PRN QHS PRN PO CONSTIPATION 11/15/20 05:00 Vitamin D (Vitamin D3) 50,000 unit WEEKLY PO 11/15/20 18:00 11/22/20 09:00 Aspirin (Aspirin Chewable) 81 mg DAILY ONCE PO 11/19/20 09:00 11/19/20 09:01 DC 11/19/20 09:24 Aspirin (Aspirin Chewable) 81 mg DAILY PO 11/20/20 09:30 11/24/20 08:02 I have reviewed the current psychotropics carefully including drug interactions. Risk benefit ratio favors no change other than as noted in my dictated progress note. Diagnosis: Problems: (1) Major depressive disorder with psychotic features (2) Impulse control disorder, unspecified (3) Anxiety disorder, unspecified (4) Dementia, vascular, with depression (5) Dementia, vascular, with delusions (6) Dementia in Alzheimer's disease with depression (7) Dementia in Alzheimer's disease with delusions (8) Dementia of the Alzheimer's type with early onset with behavioral disturbance (9) Major neurocognitive disorder NATALI RABAGO MD Nov 24, 2020 22:03
[2020-11-25 06:51] VITALS: BP 133/86
--- NOTE | 2020-11-25 07:46 | PDOC ---
Exam Note: Nilesh Note: This note is a late entry for 11/24/2020 covers elements not covered in my initial note. Subjective: The patient was seen individually in the evening of 11/24/2020 with Jamari GEORGE, discussed and reviewed the chart. The patient slept 6-1/2 hours previous night. I met with the patient in his room. He has been isolative but quite obsessed and repeatedly wanting to talk to me about discharge plans. No suicidal ideation. Review of Systems: Ambulation impaired with walker. No CV, , pulmonary, eye, ENT system symptoms on review. Mental Status Exam: The patient is oriented to himself. Insight and judgment, recent and remote memory, attention and concentration is poor consistent with h is diagnoses. Laboratory Data: Reviewed. Impression: Major neurocognitive disorder Alzheimer vascular with delusion, depression, behavioral disturbance. Anxiety disorder unspecified. Impulse control disorder unspecified. Plan: Continue the patient on his current psychotropics. Assessment: Vital Signs/I&O: Vital Signs Date Time Temp Pulse Resp B/P (MAP) Pulse Ox O2 Delivery O2 Flow Rate FiO2 11/25/20 06:51 96.3 101 17 133/86 (102) 98 11/24/20 16:19 Room Air I & O 11/24/20 11/24/20 11/25/20 15:00 23:00 07:00 Intake Total 720 ml 360 ml Balance 720 ml 360 ml Labs: Laboratory Tests Test 11/25/20 07:20 Glucose (Fingerstick) 120 mg/dL (70-99) H Current Medications: Meds: Laboratory Tests Test 11/25/20 07:20 Glucose (Fingerstick) 120 mg/dL Current Medications Medications (Trade) Dose Ordered Sig/Delfina Route PRN Reason Start Time Stop Time Status Last Admin Dose Admin Acetaminophen (Tylenol) 650 mg PRN Q6HRS PRN PO pain or fever 11/15/20 05:00 11/16/20 21:26 Atorvastatin Calcium (Lipitor) 20 mg QHS PO 11/15/20 21:00 11/24/20 19:56 Cetirizine HCl (ZyrTEC) 10 mg DAILY PO 11/15/20 09:00 11/24/20 08:02 Duloxetine HCl (Cymbalta) 60 mg DAILY PO 11/15/20 09:00 11/24/20 08:02 Fluticasone Propionate (Flonase) 2 spray DAILY NS 11/15/20 09:00 11/24/20 08:05 Lisinopril (Prinivil) 10 mg DAILY PO 11/15/20 09:00 11/24/20 08:03 Meloxicam (Mobic) 7.5 mg DAILY PO 11/15/20 09:00 11/24/20 08:02 Memantine (Namenda) 10 mg BID PO 11/15/20 09:00 11/24/20 19:55 Propranolol HCl (Inderal) 10 mg BID PO 11/15/20 09:00 11/24/20 19:55 Quetiapine Fumarate (SEROquel) 25 mg QHS PO 11/15/20 21:00 11/24/20 19:56 Tamsulosin HCl (Flomax) 0.4 mg BID PO 11/15/20 09:00 11/24/20 19:55 Lactulose (Lactulose) 20 gm DAILY PO 11/15/20 09:00 11/24/20 08:02 Acetaminophen (Tylenol) 650 mg PRN Q6HRS PRN PO MILD PAIN / TEMP > 100.3'F 11/15/20 05:00 UNV Multi-Ingredient Ointment (Analgesic [place]) 1 eyal PRN QID PRN TP MUSCLE PAIN 11/15/20 05:00 Al Hydroxide/Mg Hydroxide (Mylanta Plus Xs) 15 ml PRN AFTMEALHC PRN PO DYSPEPSIA 11/15/20 05:00 11/22/20 13:15 Magnesium Hydroxide (Milk Of Magnesia) 2,400 mg PRN QHS PRN PO CONSTIPATION 11/15/20 05:00 Vitamin D (Vitamin D3) 50,000 unit WEEKLY PO 11/15/20 18:00 11/22/20 09:00 Aspirin (Aspirin Chewable) 81 mg DAILY ONCE PO 11/19/20 09:00 11/19/20 09:01 DC 11/19/20 09:24 Aspirin (Aspirin Chewable) 81 mg DAILY PO 11/20/20 09:30 11/24/20 08:02 I have reviewed the current psychotropics carefully including drug interactions. Risk benefit ratio favors no change other than as noted in my dictated progress note. Diagnosis: Problems: (1) Major depressive disorder with psychotic features (2) Impulse control disorder, unspecified (3) Anxiety disorder, unspecified (4) Dementia, vascular, with depression (5) Dementia, vascular, with delusions (6) Dementia in Alzheimer's disease with depression (7) Dementia in Alzheimer's disease with delusions (8) Dementia of the Alzheimer's type with early onset with behavioral disturbance (9) Major neurocognitive disorder NATALI RABAGO MD Nov 25, 2020 07:46
[2020-11-25] MEDS: ASPIRIN CHEWABLE 81 MG TABLET. PO SCH (08:00)
[2020-11-25] MEDS: LACTULOSE 20 GM/30 ML SOLUTION. PO SCH (08:00)
[2020-11-25] MEDS: MELOXICAM 7.5 MG TABLET PO SCH (08:01)
[2020-11-25] MEDS: DULoxetine HCL 60 MG CAPSULE.DR PO SCH (08:02)
[2020-11-25] MEDS: LISINOPRIL 10 MG TABLET PO SCH (08:02)
[2020-11-25] MEDS: MEMANTINE 10 MG TABLET. PO SCH ×2 (08:02→20:27)
[2020-11-25] MEDS: TAMSULOSIN 0.4 MG CAP.ER.24H. PO SCH ×2 (08:03→20:27)
[2020-11-25] MEDS: CETIRIZINE HCL 10 MG TABLET PO SCH (08:03)
[2020-11-25] MEDS: PROPRANOLOL 10 MG TABLET. PO SCH ×2 (08:03→20:27)
[2020-11-25] MEDS: FLUTICASONE 50MCG/NASAL SPRAY 16GM BOTTLE. NS SCH (08:04)
[2020-11-25 16:11] VITALS: BP 138/93
[2020-11-25] MEDS: ATORVASTATIN CALCIUM 20 MG TABLET PO SCH (20:27)
[2020-11-25] MEDS: QUEtiapine 25 MG TABLET. PO SCH (20:27)
--- NOTE | 2020-11-25 22:07 | PDOC ---
Exam Note: Nilesh Note: Please also refer to the separate dictated note~for this date of service dictated separately.~Patient seen individually. Discussed the patient with Nursing staff reviewed the chart.~Reviewed interim history and current functioning. Reviewed vital signs,~Labs/ Radiology~and current medications noted below. Continue current treatment with the changes noted in the dictated addendum note Assessment: Vital Signs/I&O: Vital Signs Date Time Temp Pulse Resp B/P (MAP) Pulse Ox O2 Delivery O2 Flow Rate FiO2 11/25/20 20:27 101 138/93 11/25/20 16:11 97.3 16 96 11/24/20 16:19 Room Air I & O 11/24/20 11/24/20 11/25/20 15:00 23:00 07:00 Intake Total 720 ml 360 ml Balance 720 ml 360 ml Labs: Laboratory Tests Test 11/25/20 07:20 Glucose (Fingerstick) 120 mg/dL (70-99) H Current Medications: Meds: Laboratory Tests Test 11/25/20 07:20 Glucose (Fingerstick) 120 mg/dL Current Medications Medications (Trade) Dose Ordered Sig/Delfina Route PRN Reason Start Time Stop Time Status Last Admin Dose Admin Acetaminophen (Tylenol) 650 mg PRN Q6HRS PRN PO pain or fever 11/15/20 05:00 11/16/20 21:26 Atorvastatin Calcium (Lipitor) 20 mg QHS PO 11/15/20 21:00 11/25/20 20:27 Cetirizine HCl (ZyrTEC) 10 mg DAILY PO 11/15/20 09:00 11/25/20 08:03 Duloxetine HCl (Cymbalta) 60 mg DAILY PO 11/15/20 09:00 11/25/20 08:02 Fluticasone Propionate (Flonase) 2 spray DAILY NS 11/15/20 09:00 11/25/20 08:04 Lisinopril (Prinivil) 10 mg DAILY PO 11/15/20 09:00 11/25/20 08:02 Meloxicam (Mobic) 7.5 mg DAILY PO 11/15/20 09:00 11/25/20 08:01 Memantine (Namenda) 10 mg BID PO 11/15/20 09:00 11/25/20 20:27 Propranolol HCl (Inderal) 10 mg BID PO 11/15/20 09:00 11/25/20 20:27 Quetiapine Fumarate (SEROquel) 25 mg QHS PO 11/15/20 21:00 11/25/20 20:27 Tamsulosin HCl (Flomax) 0.4 mg BID PO 11/15/20 09:00 11/25/20 20:27 Lactulose (Lactulose) 20 gm DAILY PO 11/15/20 09:00 11/25/20 08:00 Acetaminophen (Tylenol) 650 mg PRN Q6HRS PRN PO MILD PAIN / TEMP > 100.3'F 11/15/20 05:00 UNV Multi-Ingredient Ointment (Analgesic [place]) 1 eyal PRN QID PRN TP MUSCLE PAIN 11/15/20 05:00 Al Hydroxide/Mg Hydroxide (Mylanta Plus Xs) 15 ml PRN AFTMEALHC PRN PO DYSPEPSIA 11/15/20 05:00 11/22/20 13:15 Magnesium Hydroxide (Milk Of Magnesia) 2,400 mg PRN QHS PRN PO CONSTIPATION 11/15/20 05:00 Vitamin D (Vitamin D3) 50,000 unit WEEKLY PO 11/15/20 18:00 11/22/20 09:00 Aspirin (Aspirin Chewable) 81 mg DAILY ONCE PO 11/19/20 09:00 11/19/20 09:01 DC 11/19/20 09:24 Aspirin (Aspirin Chewable) 81 mg DAILY PO 11/20/20 09:30 11/25/20 08:00 I have reviewed the current psychotropics carefully including drug interactions. Risk benefit ratio favors no change other than as noted in my dictated progress note. Diagnosis: Problems: (1) Major depressive disorder with psychotic features (2) Impulse control disorder, unspecified (3) Anxiety disorder, unspecified (4) Dementia, vascular, with depression (5) Dementia, vascular, with delusions (6) Dementia in Alzheimer's disease with depression (7) Dementia in Alzheimer's disease with delusions (8) Dementia of the Alzheimer's type with early onset with behavioral disturbance (9) Major neurocognitive disorder NATALI RABAGO MD Nov 25, 2020 22:07
--- NOTE | 2020-11-26 06:41 | PDOC ---
Exam Note: Nilesh Note: This note is a late entry for 11/25/2020 covers elements not covered in my initial note. Subjective: The patient was seen individually in the evening of 11/25/2020 with Jade GEORGE, discussed and reviewed the chart. The patient slept 7 hours previous night. He has been fairly cooperative. I met with the patient in his room. He spends much time in bed. No suicidal ideation. He remains fixated on discharge plans and I addressed this with him. Review of Systems: Ambulation impaired with walker. No CV, , pulmonary, eye, ENT system symptoms on review. Mental Status Exam: The patient is oriented to himself, situation and location. Insight and judgment, recent and remote memory, attention and concentration is poor consistent with his diagnoses. Laboratory Data: Reviewed. Impression: Major neurocognitive disorder Alzheimer vascular with delusion, depression, behavioral disturbance. Anxiety disorder unspecified. Impulse control disorder unspecified. Plan: Continue the patient on his current psychotropics. We had lengthy discussion about possible discharge plans for this coming week. He is accepting of it. Assessment: Vital Signs/I&O: Vital Signs Date Time Temp Pulse Resp B/P (MAP) Pulse Ox O2 Delivery O2 Flow Rate FiO2 11/26/20 06:36 96.8 72 18 97 11/25/20 20:27 138/93 11/24/20 16:19 Room Air I & O 11/25/20 11/25/20 11/26/20 15:00 23:00 07:00 Intake Total 480 ml 360 ml Balance 480 ml 360 ml Labs: Laboratory Tests Test 11/25/20 07:20 Glucose (Fingerstick) 120 mg/dL (70-99) H Current Medications: Meds: Laboratory Tests Test 11/25/20 07:20 Glucose (Fingerstick) 120 mg/dL Current Medications Medications (Trade) Dose Ordered Sig/Delfina Route PRN Reason Start Time Stop Time Status Last Admin Dose Admin Acetaminophen (Tylenol) 650 mg PRN Q6HRS PRN PO pain or fever 11/15/20 05:00 11/16/20 21:26 Atorvastatin Calcium (Lipitor) 20 mg QHS PO 11/15/20 21:00 11/25/20 20:27 Cetirizine HCl (ZyrTEC) 10 mg DAILY PO 11/15/20 09:00 11/25/20 08:03 Duloxetine HCl (Cymbalta) 60 mg DAILY PO 11/15/20 09:00 11/25/20 08:02 Fluticasone Propionate (Flonase) 2 spray DAILY NS 11/15/20 09:00 11/25/20 08:04 Lisinopril (Prinivil) 10 mg DAILY PO 11/15/20 09:00 11/25/20 08:02 Meloxicam (Mobic) 7.5 mg DAILY PO 11/15/20 09:00 11/25/20 08:01 Memantine (Namenda) 10 mg BID PO 11/15/20 09:00 11/25/20 20:27 Propranolol HCl (Inderal) 10 mg BID PO 11/15/20 09:00 11/25/20 20:27 Quetiapine Fumarate (SEROquel) 25 mg QHS PO 11/15/20 21:00 11/25/20 20:27 Tamsulosin HCl (Flomax) 0.4 mg BID PO 11/15/20 09:00 11/25/20 20:27 Lactulose (Lactulose) 20 gm DAILY PO 11/15/20 09:00 11/25/20 08:00 Acetaminophen (Tylenol) 650 mg PRN Q6HRS PRN PO MILD PAIN / TEMP > 100.3'F 11/15/20 05:00 UNV Multi-Ingredient Ointment (Analgesic [place]) 1 eyal PRN QID PRN TP MUSCLE PAIN 11/15/20 05:00 Al Hydroxide/Mg Hydroxide (Mylanta Plus Xs) 15 ml PRN AFTMEALHC PRN PO DYSPEPSIA 11/15/20 05:00 11/22/20 13:15 Magnesium Hydroxide (Milk Of Magnesia) 2,400 mg PRN QHS PRN PO CONSTIPATION 11/15/20 05:00 Vitamin D (Vitamin D3) 50,000 unit WEEKLY PO 11/15/20 18:00 11/22/20 09:00 Aspirin (Aspirin Chewable) 81 mg DAILY ONCE PO 11/19/20 09:00 11/19/20 09:01 DC 11/19/20 09:24 Aspirin (Aspirin Chewable) 81 mg DAILY PO 11/20/20 09:30 11/25/20 08:00 I have reviewed the current psychotropics carefully including drug interactions. Risk benefit ratio favors no change other than as noted in my dictated progress note. Diagnosis: Problems: (1) Major depressive disorder with psychotic features (2) Impulse control disorder, unspecified (3) Anxiety disorder, unspecified (4) Dementia, vascular, with depression (5) Dementia, vascular, with delusions (6) Dementia in Alzheimer's disease with depression (7) Dementia in Alzheimer's disease with delusions (8) Dementia of the Alzheimer's type with early onset with behavioral disturbance (9) Major neurocognitive disorder NATALI RABAGO MD Nov 26, 2020 06:41
[2020-11-26] MEDS: LACTULOSE 20 GM/30 ML SOLUTION. PO SCH (07:57)
[2020-11-26] MEDS: DULoxetine HCL 60 MG CAPSULE.DR PO SCH (07:57)
[2020-11-26] MEDS: CETIRIZINE HCL 10 MG TABLET PO SCH (07:57)
[2020-11-26] MEDS: TAMSULOSIN 0.4 MG CAP.ER.24H. PO SCH ×3 (07:57→21:13)
[2020-11-26] MEDS: ASPIRIN CHEWABLE 81 MG TABLET. PO SCH (07:57)
[2020-11-26] MEDS: MEMANTINE 10 MG TABLET. PO SCH ×2 (07:58→21:14)
[2020-11-26] MEDS: MELOXICAM 7.5 MG TABLET PO SCH (07:58)
[2020-11-26] MEDS: PROPRANOLOL 10 MG TABLET. PO SCH ×2 (08:16→21:14)
[2020-11-26] MEDS: LISINOPRIL 10 MG TABLET PO SCH (08:16)
[2020-11-26] MEDS: FLUTICASONE 50MCG/NASAL SPRAY 16GM BOTTLE. NS SCH (09:00)
[2020-11-26 15:53] VITALS: BP 122/76
[2020-11-26] MEDS: QUEtiapine 25 MG TABLET. PO SCH (21:14)
[2020-11-26] MEDS: ATORVASTATIN CALCIUM 20 MG TABLET PO SCH (21:14)
--- NOTE | 2020-11-26 22:06 | PDOC ---
Exam Note: Nilesh Note: Please also refer to the separate dictated note~for this date of service dictated separately.~Patient seen individually. Discussed the patient with Nursing staff reviewed the chart.~Reviewed interim history and current functioning. Reviewed vital signs,~Labs/ Radiology~and current medications noted below. Continue current treatment with the changes noted in the dictated addendum note Assessment: Vital Signs/I&O: Vital Signs Date Time Temp Pulse Resp B/P (MAP) Pulse Ox O2 Delivery O2 Flow Rate FiO2 11/26/20 21:14 84 122/76 11/26/20 15:53 98.1 18 95 11/24/20 16:19 Room Air I & O 11/25/20 11/25/20 11/26/20 15:00 23:00 07:00 Intake Total 480 ml 360 ml Balance 480 ml 360 ml Labs: Laboratory Tests Test 11/26/20 07:39 Glucose (Fingerstick) 104 mg/dL (70-99) H Current Medications: Meds: Laboratory Tests Test 11/26/20 07:39 Glucose (Fingerstick) 104 mg/dL Current Medications Medications (Trade) Dose Ordered Sig/Delfina Route PRN Reason Start Time Stop Time Status Last Admin Dose Admin Acetaminophen (Tylenol) 650 mg PRN Q6HRS PRN PO pain or fever 11/15/20 05:00 11/16/20 21:26 Atorvastatin Calcium (Lipitor) 20 mg QHS PO 11/15/20 21:00 11/26/20 21:14 Cetirizine HCl (ZyrTEC) 10 mg DAILY PO 11/15/20 09:00 11/26/20 07:57 Duloxetine HCl (Cymbalta) 60 mg DAILY PO 11/15/20 09:00 11/26/20 07:57 Fluticasone Propionate (Flonase) 2 spray DAILY NS 11/15/20 09:00 11/26/20 09:00 Lisinopril (Prinivil) 10 mg DAILY PO 11/15/20 09:00 11/26/20 08:16 Meloxicam (Mobic) 7.5 mg DAILY PO 11/15/20 09:00 11/26/20 07:58 Memantine (Namenda) 10 mg BID PO 11/15/20 09:00 11/26/20 21:14 Propranolol HCl (Inderal) 10 mg BID PO 11/15/20 09:00 11/26/20 21:14 Quetiapine Fumarate (SEROquel) 25 mg QHS PO 11/15/20 21:00 11/26/20 21:14 Tamsulosin HCl (Flomax) 0.4 mg BID PO 11/15/20 09:00 11/26/20 21:13 Lactulose (Lactulose) 20 gm DAILY PO 11/15/20 09:00 11/26/20 07:57 Acetaminophen (Tylenol) 650 mg PRN Q6HRS PRN PO MILD PAIN / TEMP > 100.3'F 11/15/20 05:00 UNV Multi-Ingredient Ointment (Analgesic [place]) 1 eyal PRN QID PRN TP MUSCLE PAIN 11/15/20 05:00 Al Hydroxide/Mg Hydroxide (Mylanta Plus Xs) 15 ml PRN AFTMEALHC PRN PO DYSPEPSIA 11/15/20 05:00 11/22/20 13:15 Magnesium Hydroxide (Milk Of Magnesia) 2,400 mg PRN QHS PRN PO CONSTIPATION 11/15/20 05:00 Vitamin D (Vitamin D3) 50,000 unit WEEKLY PO 11/15/20 18:00 11/22/20 09:00 Aspirin (Aspirin Chewable) 81 mg DAILY ONCE PO 11/19/20 09:00 11/19/20 09:01 DC 11/19/20 09:24 Aspirin (Aspirin Chewable) 81 mg DAILY PO 11/20/20 09:30 11/26/20 07:57 I have reviewed the current psychotropics carefully including drug interactions. Risk benefit ratio favors no change other than as noted in my dictated progress note. Diagnosis: Problems: (1) Major depressive disorder with psychotic features (2) Impulse control disorder, unspecified (3) Anxiety disorder, unspecified (4) Dementia, vascular, with depression (5) Dementia, vascular, with delusions (6) Dementia in Alzheimer's disease with depression (7) Dementia in Alzheimer's disease with delusions (8) Dementia of the Alzheimer's type with early onset with behavioral disturbance (9) Major neurocognitive disorder NATALI RABAGO MD Nov 26, 2020 22:06
[2020-11-27 06:11] VITALS: BP 114/76
[2020-11-27 06:36] LABS: BASO % 1 % (0-3); EOS # 0.2 x10^3/uL (0.0-0.7); EOS % 3 % (0-3); HEMATOCRIT 36.2 % (39.0-53.0); HEMOGLOBIN 12.3 g/dL (13.0-17.5); LYMPH # 1.6 x10^3/uL (1.0-4.8); LYMPH % 29 % (24-48); MEAN CORPUSCULAR HEMOGLOBIN 32 pg (25-35); MEAN CORPUSCULAR HGB CONC 34 g/dL (31-37); MEAN CORPUSCULAR VOLUME 96 fL (79-100); MONO # 0.5 x10^3/uL (0.0-1.1); MONO % 9 % (0-9); NEUT # 3.2 x10^3uL (1.8-7.7); NEUT % 59 % (31-73); PLATELET COUNT 193 x10^3/uL (140-400); RED BLOOD COUNT 3.79 x10^6/uL (4.30-5.70); RED CELL DISTRIBUTION WIDTH 12.7 % (11.5-14.5); WHITE BLOOD COUNT 5.5 x10^3/uL (4.0-11.0)
[2020-11-27 06:47] LABS: ALBUMIN 3.3 g/dL (3.4-5.0); CALCIUM 8.7 mg/dL (8.5-10.1); CREATININE 1.6 mg/dL (0.7-1.3); GFR 42.7; POTASSIUM 4.7 mmol/L (3.5-5.1); TOTAL BILIRUBIN 0.3 mg/dL (0.2-1.0); TOTAL PROTEIN 6.7 g/dL (6.4-8.2)
--- NOTE | 2020-11-27 06:54 | PDOC ---
Exam Note: Nilesh Note: This note is a late entry for 11/26/2020 covers elements not covered in my initial note. Subjective: The patient was seen individually in the evening of 11/26/2020 with Jade GEORGE, discussed and reviewed the chart. The patient slept 6-1/2 hours previous night. He was seen in the dayroom at some length. He spends much time in his room. He has been telling the nursing staff that the monsters have gone and that he should be discharged back to his facility. I addressed this with him. Review of Systems: Ambulation impaired with walker. No CV, , pulmonary, eye, ENT system symptoms on review. Reliability fair. Mental Status Exam: The patient is oriented to himself, situation and location. Speech has some latency, coherent. Abstraction is fair. Computation is impaired. Language function intact. Mood and affect somewhat withdrawn. Laboratory Data: Reviewed. Impression: Major neurocognitive disorder Alzheimer vascular with delusion, depression, behavioral disturbance. Anxiety disorder unspecified. Impulse control disorder unspecified. Plan: Continue the patient on his current psychotropics. Assessment: Vital Signs/I&O: Vital Signs Date Time Temp Pulse Resp B/P (MAP) Pulse Ox O2 Delivery O2 Flow Rate FiO2 11/27/20 06:11 98.1 73 20 114/76 (89) 96 Room Air I & O 11/26/20 11/26/20 11/27/20 15:00 23:00 07:00 Intake Total 960 ml 360 ml 120 ml Balance 960 ml 360 ml 120 ml Labs: Laboratory Tests Test 11/26/20 07:39 Glucose (Fingerstick) 104 mg/dL (70-99) H Current Medications: Meds: Laboratory Tests Test 11/26/20 07:39 Glucose (Fingerstick) 104 mg/dL Current Medications Medications (Trade) Dose Ordered Sig/Delfina Route PRN Reason Start Time Stop Time Status Last Admin Dose Admin Acetaminophen (Tylenol) 650 mg PRN Q6HRS PRN PO pain or fever 11/15/20 05:00 11/16/20 21:26 Atorvastatin Calcium (Lipitor) 20 mg QHS PO 11/15/20 21:00 11/26/20 21:14 Cetirizine HCl (ZyrTEC) 10 mg DAILY PO 11/15/20 09:00 11/26/20 07:57 Duloxetine HCl (Cymbalta) 60 mg DAILY PO 11/15/20 09:00 11/26/20 07:57 Fluticasone Propionate (Flonase) 2 spray DAILY NS 11/15/20 09:00 11/26/20 09:00 Lisinopril (Prinivil) 10 mg DAILY PO 11/15/20 09:00 11/26/20 08:16 Meloxicam (Mobic) 7.5 mg DAILY PO 11/15/20 09:00 11/26/20 07:58 Memantine (Namenda) 10 mg BID PO 11/15/20 09:00 11/26/20 21:14 Propranolol HCl (Inderal) 10 mg BID PO 11/15/20 09:00 11/26/20 21:14 Quetiapine Fumarate (SEROquel) 25 mg QHS PO 11/15/20 21:00 11/26/20 21:14 Tamsulosin HCl (Flomax) 0.4 mg BID PO 11/15/20 09:00 11/26/20 21:13 Lactulose (Lactulose) 20 gm DAILY PO 11/15/20 09:00 11/26/20 07:57 Acetaminophen (Tylenol) 650 mg PRN Q6HRS PRN PO MILD PAIN / TEMP > 100.3'F 11/15/20 05:00 UNV Multi-Ingredient Ointment (Analgesic [place]) 1 eyal PRN QID PRN TP MUSCLE PAIN 11/15/20 05:00 Al Hydroxide/Mg Hydroxide (Mylanta Plus Xs) 15 ml PRN AFTMEALHC PRN PO DYSPEPSIA 11/15/20 05:00 11/22/20 13:15 Magnesium Hydroxide (Milk Of Magnesia) 2,400 mg PRN QHS PRN PO CONSTIPATION 11/15/20 05:00 Vitamin D (Vitamin D3) 50,000 unit WEEKLY PO 11/15/20 18:00 11/22/20 09:00 Aspirin (Aspirin Chewable) 81 mg DAILY ONCE PO 11/19/20 09:00 11/19/20 09:01 DC 11/19/20 09:24 Aspirin (Aspirin Chewable) 81 mg DAILY PO 11/20/20 09:30 11/26/20 07:57 I have reviewed the current psychotropics carefully including drug interactions. Risk benefit ratio favors no change other than as noted in my dictated progress note. Diagnosis: Problems: (1) Major depressive disorder with psychotic features (2) Impulse control disorder, unspecified (3) Anxiety disorder, unspecified (4) Dementia, vascular, with depression (5) Dementia, vascular, with delusions (6) Dementia in Alzheimer's disease with depression (7) Dementia in Alzheimer's disease with delusions (8) Dementia of the Alzheimer's type with early onset with behavioral disturbance (9) Major neurocognitive disorder NATALI RABAGO MD Nov 27, 2020 06:54
[2020-11-27] MEDS: LACTULOSE 20 GM/30 ML SOLUTION. PO SCH (08:11)
[2020-11-27] MEDS: DULoxetine HCL 60 MG CAPSULE.DR PO SCH (08:12)
[2020-11-27] MEDS: ASPIRIN CHEWABLE 81 MG TABLET. PO SCH (08:12)
[2020-11-27] MEDS: MELOXICAM 7.5 MG TABLET PO SCH (08:12)
[2020-11-27] MEDS: MEMANTINE 10 MG TABLET. PO SCH ×2 (08:13→22:24)
[2020-11-27] MEDS: LISINOPRIL 10 MG TABLET PO SCH (08:13)
[2020-11-27] MEDS: PROPRANOLOL 10 MG TABLET. PO SCH ×2 (08:13→22:24)
[2020-11-27] MEDS: CETIRIZINE HCL 10 MG TABLET PO SCH (08:13)
[2020-11-27] MEDS: FLUTICASONE 50MCG/NASAL SPRAY 16GM BOTTLE. NS SCH (08:55)
[2020-11-27 16:14] VITALS: BP 108/77
[2020-11-27] MEDS: QUEtiapine 25 MG TABLET. PO SCH (22:24)
[2020-11-27] MEDS: ATORVASTATIN CALCIUM 20 MG TABLET PO SCH (22:24)
[2020-11-27] MEDS: TAMSULOSIN 0.4 MG CAP.ER.24H. PO SCH (22:24)
--- NOTE | 2020-11-27 23:12 | PDOC ---
Exam Note: Nilesh Note: Please also refer to the separate dictated note~for this date of service dictated separately.~Patient seen individually. Discussed the patient with Nursing staff reviewed the chart.~Reviewed interim history and current functioning. Reviewed vital signs,~Labs/ Radiology~and current medications noted below. Continue current treatment with the changes noted in the dictated addendum note Assessment: Vital Signs/I&O: Vital Signs Date Time Temp Pulse Resp B/P (MAP) Pulse Ox O2 Delivery O2 Flow Rate FiO2 11/27/20 22:24 95 108/77 11/27/20 16:14 97.8 16 93 11/27/20 06:11 Room Air I & O 11/26/20 11/26/20 11/27/20 15:00 23:00 07:00 Intake Total 960 ml 360 ml 120 ml Balance 960 ml 360 ml 120 ml Labs: Laboratory Tests Test 11/27/20 06:11 11/27/20 07:55 White Blood Count 5.5 x10^3/uL (4.0-11.0) Red Blood Count 3.79 x10^6/uL (4.30-5.70) L Hemoglobin 12.3 g/dL (13.0-17.5) L Hematocrit 36.2 % (39.0-53.0) L Mean Corpuscular Volume 96 fL (79-100) Mean Corpuscular Hemoglobin 32 pg (25-35) Mean Corpuscular Hemoglobin Concent 34 g/dL (31-37) Red Cell Distribution Width 12.7 % (11.5-14.5) Platelet Count 193 x10^3/uL (140-400) Neutrophils (%) (Auto) 59 % (31-73) Lymphocytes (%) (Auto) 29 % (24-48) Monocytes (%) (Auto) 9 % (0-9) Eosinophils (%) (Auto) 3 % (0-3) Basophils (%) (Auto) 1 % (0-3) Neutrophils # (Auto) 3.2 x10^3uL (1.8-7.7) Lymphocytes # (Auto) 1.6 x10^3/uL (1.0-4.8) Monocytes # (Auto) 0.5 x10^3/uL (0.0-1.1) Eosinophils # (Auto) 0.2 x10^3/uL (0.0-0.7) Basophils # (Auto) 0.0 x10^3/uL (0.0-0.2) Sodium Level 142 mmol/L (136-145) Potassium Level 4.7 mmol/L (3.5-5.1) Chloride Level 106 mmol/L (98-107) Carbon Dioxide Level 28 mmol/L (21-32) Anion Gap 8 (6-14) Blood Urea Nitrogen 27 mg/dL (8-26) H Creatinine 1.6 mg/dL (0.7-1.3) H Estimated GFR (Cockcroft-Gault) 42.7 BUN/Creatinine Ratio 17 (6-20) Glucose Level 110 mg/dL (70-99) H Calcium Level 8.7 mg/dL (8.5-10.1) Total Bilirubin 0.3 mg/dL (0.2-1.0) Aspartate Amino Transferase (AST) 14 U/L (15-37) L Alanine Aminotransferase (ALT) 34 U/L (16-63) Alkaline Phosphatase 52 U/L (46-116) Total Protein 6.7 g/dL (6.4-8.2) Albumin 3.3 g/dL (3.4-5.0) L Albumin/Globulin Ratio 1.0 (1.0-1.7) Glucose (Fingerstick) 108 mg/dL (70-99) H Current Medications: Meds: Laboratory Tests Test 11/27/20 06:11 11/27/20 07:55 White Blood Count 5.5 x10^3/uL Red Blood Count 3.79 x10^6/uL Hemoglobin 12.3 g/dL Hematocrit 36.2 % Mean Corpuscular Volume 96 fL Mean Corpuscular Hemoglobin 32 pg Mean Corpuscular Hemoglobin Concent 34 g/dL Red Cell Distribution Width 12.7 % Platelet Count 193 x10^3/uL Neutrophils (%) (Auto) 59 % Lymphocytes (%) (Auto) 29 % Monocytes (%) (Auto) 9 % Eosinophils (%) (Auto) 3 % Basophils (%) (Auto) 1 % Neutrophils # (Auto) 3.2 x10^3uL Lymphocytes # (Auto) 1.6 x10^3/uL Monocytes # (Auto) 0.5 x10^3/uL Eosinophils # (Auto) 0.2 x10^3/uL Basophils # (Auto) 0.0 x10^3/uL Sodium Level 142 mmol/L Potassium Level 4.7 mmol/L Chloride Level 106 mmol/L Carbon Dioxide Level 28 mmol/L Anion Gap 8 Blood Urea Nitrogen 27 mg/dL Creatinine 1.6 mg/dL Estimated GFR (Cockcroft-Gault) 42.7 BUN/Creatinine Ratio 17 Glucose Level 110 mg/dL Calcium Level 8.7 mg/dL Total Bilirubin 0.3 mg/dL Aspartate Amino Transf (AST/SGOT) 14 U/L Alanine Aminotransferase (ALT/SGPT) 34 U/L Alkaline Phosphatase 52 U/L Total Protein 6.7 g/dL Albumin 3.3 g/dL Albumin/Globulin Ratio 1.0 Glucose (Fingerstick) 108 mg/dL Current Medications Medications (Trade) Dose Ordered Sig/Delfina Route PRN Reason Start Time Stop Time Status Last Admin Dose Admin Acetaminophen (Tylenol) 650 mg PRN Q6HRS PRN PO pain or fever 11/15/20 05:00 11/16/20 21:26 Atorvastatin Calcium (Lipitor) 20 mg QHS PO 11/15/20 21:00 11/27/20 22:24 Cetirizine HCl (ZyrTEC) 10 mg DAILY PO 11/15/20 09:00 11/27/20 08:13 Duloxetine HCl (Cymbalta) 60 mg DAILY PO 11/15/20 09:00 11/27/20 08:12 Fluticasone Propionate (Flonase) 2 spray DAILY NS 11/15/20 09:00 11/27/20 08:55 Lisinopril (Prinivil) 10 mg DAILY PO 11/15/20 09:00 11/27/20 08:13 Meloxicam (Mobic) 7.5 mg DAILY PO 11/15/20 09:00 11/27/20 08:12 Memantine (Namenda) 10 mg BID PO 11/15/20 09:00 11/27/20 22:24 Propranolol HCl (Inderal) 10 mg BID PO 11/15/20 09:00 11/27/20 22:24 Quetiapine Fumarate (SEROquel) 25 mg QHS PO 11/15/20 21:00 11/27/20 22:24 Tamsulosin HCl (Flomax) 0.4 mg BID PO 11/15/20 09:00 11/27/20 22:24 Lactulose (Lactulose) 20 gm DAILY PO 11/15/20 09:00 11/27/20 08:11 Acetaminophen (Tylenol) 650 mg PRN Q6HRS PRN PO MILD PAIN / TEMP > 100.3'F 11/15/20 05:00 UNV Multi-Ingredient Ointment (Analgesic [place]) 1 eyal PRN QID PRN TP MUSCLE PAIN 11/15/20 05:00 Al Hydroxide/Mg Hydroxide (Mylanta Plus Xs) 15 ml PRN AFTMEALHC PRN PO DYSPEPSIA 11/15/20 05:00 11/22/20 13:15 Magnesium Hydroxide (Milk Of Magnesia) 2,400 mg PRN QHS PRN PO CONSTIPATION 11/15/20 05:00 Vitamin D (Vitamin D3) 50,000 unit WEEKLY PO 11/15/20 18:00 11/22/20 09:00 Aspirin (Aspirin Chewable) 81 mg DAILY ONCE PO 11/19/20 09:00 11/19/20 09:01 DC 11/19/20 09:24 Aspirin (Aspirin Chewable) 81 mg DAILY PO 11/20/20 09:30 11/27/20 08:12 I have reviewed the current psychotropics carefully including drug interactions. Risk benefit ratio favors no change other than as noted in my dictated progress note. Diagnosis: Problems: (1) Major depressive disorder with psychotic features (2) Impulse control disorder, unspecified (3) Anxiety disorder, unspecified (4) Dementia, vascular, with depression (5) Dementia, vascular, with delusions (6) Dementia in Alzheimer's disease with depression (7) Dementia in Alzheimer's disease with delusions (8) Dementia of the Alzheimer's type with early onset with behavioral distur bance (9) Major neurocognitive disorder NATALI RABAGO MD Nov 27, 2020 23:12
[2020-11-28 06:03] VITALS: BP 120/81
[2020-11-28] MEDS: PROPRANOLOL 10 MG TABLET. PO SCH ×2 (08:26→20:51)
[2020-11-28] MEDS: TAMSULOSIN 0.4 MG CAP.ER.24H. PO SCH ×2 (08:27→20:51)
[2020-11-28] MEDS: LISINOPRIL 10 MG TABLET PO SCH (08:27)
[2020-11-28] MEDS: ASPIRIN CHEWABLE 81 MG TABLET. PO SCH (08:27)
[2020-11-28] MEDS: CETIRIZINE HCL 10 MG TABLET PO SCH (08:27)
[2020-11-28] MEDS: MELOXICAM 7.5 MG TABLET PO SCH (08:27)
[2020-11-28] MEDS: MEMANTINE 10 MG TABLET. PO SCH ×2 (08:27→20:50)
[2020-11-28] MEDS: DULoxetine HCL 60 MG CAPSULE.DR PO SCH (08:27)
[2020-11-28] MEDS: LACTULOSE 20 GM/30 ML SOLUTION. PO SCH (08:28)
[2020-11-28] MEDS: FLUTICASONE 50MCG/NASAL SPRAY 16GM BOTTLE. NS SCH (08:28)
[2020-11-28 15:45] VITALS: BP 128/77
[2020-11-28] MEDS: ATORVASTATIN CALCIUM 20 MG TABLET PO SCH (20:50)
[2020-11-28] MEDS: QUEtiapine 25 MG TABLET. PO SCH (20:51)
--- NOTE | 2020-11-28 22:15 | PDOC ---
Exam Note: Nilesh Note: Please also refer to the separate dictated note~for this date of service dictated separately.~Patient seen individually. Discussed the patient with Nursing staff reviewed the chart.~Reviewed interim history and current functioning. Reviewed vital signs,~Labs/ Radiology~and current medications noted below. Continue current treatment with the changes noted in the dictated addendum note Assessment: Vital Signs/I&O: Vital Signs Date Time Temp Pulse Resp B/P (MAP) Pulse Ox O2 Delivery O2 Flow Rate FiO2 11/28/20 20:51 94 128/77 11/28/20 15:45 98.0 18 95 11/27/20 06:11 Room Air I & O 11/27/20 11/27/20 11/28/20 15:00 23:00 07:00 Intake Total 960 ml 480 ml Balance 960 ml 480 ml Labs: Laboratory Tests Test 11/28/20 07:29 11/28/20 11:38 Glucose (Fingerstick) 115 mg/dL (70-99) H 118 mg/dL (70-99) H Current Medications: Meds: Laboratory Tests Test 11/28/20 07:29 11/28/20 11:38 Glucose (Fingerstick) 115 mg/dL 118 mg/dL Current Medications Medications (Trade) Dose Ordered Sig/Delfina Route PRN Reason Start Time Stop Time Status Last Admin Dose Admin Acetaminophen (Tylenol) 650 mg PRN Q6HRS PRN PO pain or fever 11/15/20 05:00 11/16/20 21:26 Atorvastatin Calcium (Lipitor) 20 mg QHS PO 11/15/20 21:00 11/28/20 20:50 Cetirizine HCl (ZyrTEC) 10 mg DAILY PO 11/15/20 09:00 11/28/20 08:27 Duloxetine HCl (Cymbalta) 60 mg DAILY PO 11/15/20 09:00 11/28/20 08:27 Fluticasone Propionate (Flonase) 2 spray DAILY NS 11/15/20 09:00 11/28/20 08:28 Lisinopril (Prinivil) 10 mg DAILY PO 11/15/20 09:00 11/28/20 08:27 Meloxicam (Mobic) 7.5 mg DAILY PO 11/15/20 09:00 11/28/20 08:27 Memantine (Namenda) 10 mg BID PO 11/15/20 09:00 11/28/20 20:50 Propranolol HCl (Inderal) 10 mg BID PO 11/15/20 09:00 11/28/20 20:51 Quetiapine Fumarate (SEROquel) 25 mg QHS PO 11/15/20 21:00 11/28/20 20:51 Tamsulosin HCl (Flomax) 0.4 mg BID PO 11/15/20 09:00 11/28/20 20:51 Lactulose (Lactulose) 20 gm DAILY PO 11/15/20 09:00 11/28/20 08:28 Acetaminophen (Tylenol) 650 mg PRN Q6HRS PRN PO MILD PAIN / TEMP > 100.3'F 11/15/20 05:00 UNV Multi-Ingredient Ointment (Analgesic [place]) 1 eyal PRN QID PRN TP MUSCLE PAIN 11/15/20 05:00 Al Hydroxide/Mg Hydroxide (Mylanta Plus Xs) 15 ml PRN AFTMEALHC PRN PO DYSPEPSIA 11/15/20 05:00 11/22/20 13:15 Magnesium Hydroxide (Milk Of Magnesia) 2,400 mg PRN QHS PRN PO CONSTIPATION 11/15/20 05:00 Vitamin D (Vitamin D3) 50,000 unit WEEKLY PO 11/15/20 18:00 11/22/20 09:00 Aspirin (Aspirin Chewable) 81 mg DAILY ONCE PO 11/19/20 09:00 11/19/20 09:01 DC 11/19/20 09:24 Aspirin (Aspirin Chewable) 81 mg DAILY PO 11/20/20 09:30 11/28/20 08:27 I have reviewed the current psychotropics carefully including drug interactions. Risk benefit ratio favors no change other than as noted in my dictated progress note. Diagnosis: Problems: (1) Major depressive disorder with psychotic features (2) Impulse control disorder, unspecified (3) Anxiety disorder, unspecified (4) Dementia, vascular, with depression (5) Dementia, vascular, with delusions (6) Dementia in Alzheimer's disease with depression (7) Dementia in Alzheimer's disease with delusions (8) Dementia of the Alzheimer's type with early onset with behavioral disturbance (9) Major neurocognitive disorder NATALI RABAGO MD Nov 28, 2020 22:14
[2020-11-29 05:55] VITALS: BP 113/72
[2020-11-29] MEDS: MEMANTINE 10 MG TABLET. PO SCH ×2 (07:07→20:44)
[2020-11-29] MEDS: TAMSULOSIN 0.4 MG CAP.ER.24H. PO SCH ×2 (07:07→20:44)
[2020-11-29] MEDS: FLUTICASONE 50MCG/NASAL SPRAY 16GM BOTTLE. NS SCH (07:07)
[2020-11-29] MEDS: MELOXICAM 7.5 MG TABLET PO SCH (07:07)
[2020-11-29] MEDS: CETIRIZINE HCL 10 MG TABLET PO SCH (07:08)
[2020-11-29] MEDS: ASPIRIN CHEWABLE 81 MG TABLET. PO SCH (07:08)
[2020-11-29] MEDS: PROPRANOLOL 10 MG TABLET. PO SCH ×2 (07:08→20:44)
[2020-11-29] MEDS: DULoxetine HCL 60 MG CAPSULE.DR PO SCH (07:08)
[2020-11-29] MEDS: LISINOPRIL 10 MG TABLET PO SCH (07:09)
[2020-11-29] MEDS: LACTULOSE 20 GM/30 ML SOLUTION. PO SCH (07:09)
[2020-11-29] MEDS: CHOLECALCIFEROL (VITAMIN D3) 50,000 UNIT CAPSULE PO SCH (07:12)
--- NOTE | 2020-11-29 11:30 | TX PLAN ---
Interdisciplinary Tx Plan Admission Information Nov 15, 2020 at 04:04 Legal Status (on Admission): Voluntary DPOA/Guardian Name: Karen EagleStep-dtr Contact Other Contact Name: Cherelle Other Contact Verified Code Status: DNR Allergies: Coded Allergies: No Known Drug Allergies (Unverified , 11/14/20) Diagnoses Primary Diagnosis: Depression, Anxiety, Dementia Reasons for Admission: Sig. Change Sleep, Anxiety/Panic, Hallucinations, Confusion/Disoriented Problem in Patient's Words: Per DPOA, pt has dementia that was diagnosed about 2 years ago. He see animals and [place] flying out of the TV. Per facility, pt was exhibiting true feelings of fear r/t the things he was seeing and thinking. Additional Admission Comments: Per intake, insomnia, anxious, reports the door is melting off the hinges, seeing things upside down, thinks water is coming out of the electrical cords, states to staff that he thinks it's his time to go, believes comes to him at night and they have had sex. Problems Active Problems: hallucinations, delusions, fearfulness, anxiety Inactive Problems: None at this time Pt Strengths/Limitations Ability for [place]: Poor Cognitive Functioning/Ability: Fair Communication Skills/Ability: Fair Financial Resources: Poor Insight/Judgement: Poor Intellectual Ability: Poor Physical Health: Poor Social Skills: Fair Stability in Family: Poor Stability in School/Work: Poor Verbal Skills: Fair Discharge Criteria Discharge Criteria: No need for close observ., Adequate arrangements @DC, Verbal commit med comply, Improved behavior, Improved mood/thought Preliminary Discharge Plan Preliminary DC Plan: Current Living Arrange. Special Precautions Special Precautions: Suicide Risk Fall Risk: Moderate Other Precautions (specify): Uses a cane. Initial D/C Plan Pt plan is to return to [facility]. Identified Discharge Needs: None at this time. Currently Utilized Resources Currently Utilized Resources/P: PCP-Dr. Nathaniel YOUNGBLOOD-Karen Ferguson [facility] LEANDRO-Shirin Referrals Community Resources: None noted at this time. Identified Problems/Hx/Goals Objectives/Short-Term Goals Short Term Goals: Control abnormal behavior, Dec. Anxiety/Panic, Dec. Hallucin ation/Delus, Dec. Symp. Depression, Medication Stabilization, Monitor Med Effects Short Term Goals in Patient's: to have medications evaluated and adjusted. Stop seeing things that aren't there and not feel fear. 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 Education: Pt only has 5th grade education and struggles communicating his feelings. Community Follow-up PCP Community Provider/Family Inpu: FORD is aware that pt has arrived to [facility]. DPOA has provided input in pt social history and is available for further information if needed. Treatment Plan Explained Patient/Dental Technician Metal had this treatment plan explained to him/her as indicated by the signature below and has been given the opportunity to ask questions and make suggestions: Date: Patient/Dental Technician Metal Signature: Status Update Update Pt eating well; 100% of meals and averaging 7 hours of sleep per night. Pt is appropriate and pleasant. Pt continues to be medication compliant. Pt does have some confusion with date and time. Pt continues to state that he is ready to go home. Pt denying hallucinations and reporting that he is not seeing the ghosts any longer. Pt plan is to return to [facility] the beginning of next week. GREGOR MENDOZA Nov 29, 2020 11:30
[2020-11-29 16:15] VITALS: BP 126/87
[2020-11-29] MEDS: ATORVASTATIN CALCIUM 20 MG TABLET PO SCH (20:45)
[2020-11-29] MEDS: QUEtiapine 25 MG TABLET. PO SCH (20:45)
--- NOTE | 2020-11-29 21:58 | PDOC ---
Exam Note: Nilesh Note: Please also refer to the separate dictated note~for this date of service dictated separately.~Patient seen individually. Discussed the patient with Nursing staff reviewed the chart.~Reviewed interim history and current functioning. Reviewed vital signs,~Labs/ Radiology~and current medications noted below. Continue current treatment with the changes noted in the dictated addendum note Assessment: Vital Signs/I&O: Vital Signs Date Time Temp Pulse Resp B/P (MAP) Pulse Ox O2 Delivery O2 Flow Rate FiO2 11/29/20 20:44 97 126/87 11/29/20 16:15 97.9 18 96 11/27/20 06:11 Room Air I & O 11/28/20 11/28/20 11/29/20 14:59 22:59 06:59 Intake Total 600 ml 600 ml Balance 600 ml 600 ml Labs: Laboratory Tests Test 11/29/20 07:57 Glucose (Fingerstick) 136 mg/dL (70-99) H Current Medications: Meds: Laboratory Tests Test 11/29/20 07:57 Glucose (Fingerstick) 136 mg/dL Current Medications Medications (Trade) Dose Ordered Sig/Delfina Route PRN Reason Start Time Stop Time Status Last Admin Dose Admin Acetaminophen (Tylenol) 650 mg PRN Q6HRS PRN PO pain or fever 11/15/20 05:00 11/16/20 21:26 Atorvastatin Calcium (Lipitor) 20 mg QHS PO 11/15/20 21:00 11/29/20 20:45 Cetirizine HCl (ZyrTEC) 10 mg DAILY PO 11/15/20 09:00 11/29/20 07:08 Duloxetine HCl (Cymbalta) 60 mg DAILY PO 11/15/20 09:00 11/29/20 07:08 Fluticasone Propionate (Flonase) 2 spray DAILY NS 11/15/20 09:00 11/29/20 07:07 Lisinopril (Prinivil) 10 mg DAILY PO 11/15/20 09:00 11/29/20 07:09 Meloxicam (Mobic) 7.5 mg DAILY PO 11/15/20 09:00 11/29/20 07:07 Memantine (Namenda) 10 mg BID PO 11/15/20 09:00 11/29/20 20:44 Propranolol HCl (Inderal) 10 mg BID PO 11/15/20 09:00 11/29/20 20:44 Quetiapine Fumarate (SEROquel) 25 mg QHS PO 11/15/20 21:00 11/29/20 20:45 Tamsulosin HCl (Flomax) 0.4 mg BID PO 11/15/20 09:00 11/29/20 20:44 Lactulose (Lactulose) 20 gm DAILY PO 11/15/20 09:00 11/29/20 07:09 Acetaminophen (Tylenol) 650 mg PRN Q6HRS PRN PO MILD PAIN / TEMP > 100.3'F 11/15/20 05:00 UNV Multi-Ingredient Ointment (Analgesic [place]) 1 eyal PRN QID PRN TP MUSCLE PAIN 11/15/20 05:00 Al Hydroxide/Mg Hydroxide (Mylanta Plus Xs) 15 ml PRN AFTMEALHC PRN PO DYSPEPSIA 11/15/20 05:00 11/22/20 13:15 Magnesium Hydroxide (Milk Of Magnesia) 2,400 mg PRN QHS PRN PO CONSTIPATION 11/15/20 05:00 Vitamin D (Vitamin D3) 50,000 unit WEEKLY PO 11/15/20 18:00 11/29/20 07:12 Aspirin (Aspirin Chewable) 81 mg DAILY ONCE PO 11/19/20 09:00 11/19/20 09:01 DC 11/19/20 09:24 Aspirin (Aspirin Chewable) 81 mg DAILY PO 11/20/20 09:30 11/29/20 07:08 I have reviewed the current psychotropics carefully including drug interactions. Risk benefit ratio favors no change other than as noted in my dictated progress note. Diagnosis: Problems: (1) Major depressive disorder with psychotic features (2) Impulse control disorder, unspecified (3) Anxiety disorder, unspecified (4) Dementia, vascular, with depression (5) Dementia, vascular, with delusions (6) Dementia in Alzheimer's disease with depression (7) Dementia in Alzheimer's disease with delusions (8) Dementia of the Alzheimer's type with early onset with behavioral disturbance (9) Major neurocognitive disorder NATALI RABAGO MD Nov 29, 2020 21:58
[2020-11-30 05:57] VITALS: BP 108/73
--- NOTE | 2020-11-30 07:00 | PDOC ---
Exam Note: Nilesh Note: This note is a late entry for 11/27/2020 covers elements not covered in my initial note. Subjective: The patient was seen individually in the evening of 11/27/2020 with Jade GEORGE, discussed and reviewed the chart. The patient slept 7-1/2 hours previous night. He has been calm. No suicidal ideation. I met with him in the dayroom. Review of Systems: Ambulation impaired with walker. No CV, , pulmonary, eye, ENT system symptoms on review. Mental Status Exam: The patient is oriented to himself and situation. Speech has some latency, coherent. Abstraction is fair. Computation is impaired. Language function intact. Mood and affect somewhat withdrawn. Laboratory Data: Reviewed. Impression: Major neurocognitive disorder Alzheimer vascular with delusion, depression, behavioral disturbance. Anxiety disorder unspecified. Impulse control disorder unspecified. Plan: Continue the patient on his current psychotropics. Assessment: Vital Signs/I&O: Vital Signs Date Time Temp Pulse Resp B/P (MAP) Pulse Ox O2 Delivery O2 Flow Rate FiO2 11/30/20 05:57 96.7 81 16 108/73 (85) 7 94.0 11/27/20 06:11 Room Air I & O 11/29/20 11/29/20 11/30/20 15:00 23:00 07:00 Intake Total 440 ml 360 ml Balance 440 ml 360 ml Labs: Laboratory Tests Test 11/29/20 07:57 Glucose (Fingerstick) 136 mg/dL (70-99) H Current Medications: Meds: Laboratory Tests Test 11/29/20 07:57 Glucose (Fingerstick) 136 mg/dL Current Medications Medications (Trade) Dose Ordered Sig/Delfina Route PRN Reason Start Time Stop Time Status Last Admin Dose Admin Acetaminophen (Tylenol) 650 mg PRN Q6HRS PRN PO pain or fever 11/15/20 05:00 11/16/20 21:26 Atorvastatin Calcium (Lipitor) 20 mg QHS PO 11/15/20 21:00 11/29/20 20:45 Cetirizine HCl (ZyrTEC) 10 mg DAILY PO 11/15/20 09:00 11/29/20 07:08 Duloxetine HCl (Cymbalta) 60 mg DAILY PO 11/15/20 09:00 11/29/20 07:08 Fluticasone Propionate (Flonase) 2 spray DAILY NS 11/15/20 09:00 11/29/20 07:07 Lisinopril (Prinivil) 10 mg DAILY PO 11/15/20 09:00 11/29/20 07:09 Meloxicam (Mobic) 7.5 mg DAILY PO 11/15/20 09:00 11/29/20 07:07 Memantine (Namenda) 10 mg BID PO 11/15/20 09:00 11/29/20 20:44 Propranolol HCl (Inderal) 10 mg BID PO 11/15/20 09:00 11/29/20 20:44 Quetiapine Fumarate (SEROquel) 25 mg QHS PO 11/15/20 21:00 11/29/20 20:45 Tamsulosin HCl (Flomax) 0.4 mg BID PO 11/15/20 09:00 11/29/20 20:44 Lactulose (Lactulose) 20 gm DAILY PO 11/15/20 09:00 11/29/20 07:09 Acetaminophen (Tylenol) 650 mg PRN Q6HRS PRN PO MILD PAIN / TEMP > 100.3'F 11/15/20 05:00 UNV Multi-Ingredient Ointment (Analgesic [place]) 1 eyal PRN QID PRN TP MUSCLE PAIN 11/15/20 05:00 Al Hydroxide/Mg Hydroxide (Mylanta Plus Xs) 15 ml PRN AFTMEALHC PRN PO DYSPEPSIA 11/15/20 05:00 11/22/20 13:15 Magnesium Hydroxide (Milk Of Magnesia) 2,400 mg PRN QHS PRN PO CONSTIPATION 11/15/20 05:00 Vitamin D (Vitamin D3) 50,000 unit WEEKLY PO 11/15/20 18:00 11/29/20 07:12 Aspirin (Aspirin Chewable) 81 mg DAILY ONCE PO 11/19/20 09:00 11/19/20 09:01 DC 11/19/20 09:24 Aspirin (Aspirin Chewable) 81 mg DAILY PO 11/20/20 09:30 11/29/20 07:08 I have reviewed the current psychotropics carefully including drug interactions. Risk benefit ratio favors no change other than as noted in my dictated progress note. Diagnosis: Problems: (1) Major depressive disorder with psychotic features (2) Impulse control disorder, unspecified (3) Anxiety disorder, unspecified (4) Dementia, vascular, with depression (5) Dementia, vascular, with delusions (6) Dementia in Alzheimer's disease with depression (7) Dementia in Alzheimer's disease with delusions (8) Dementia of the Alzheimer's type with early onset with behavioral dis turbance (9) Major neurocognitive disorder NATALI RABAGO MD Nov 30, 2020 07:00
--- NOTE | 2020-11-30 07:22 | PDOC ---
Exam Note: Nilesh Note: This note is a late entry for 11/28/2020 covers elements not covered in my initial note. Subjective: The patient was seen individually in the evening of 11/28/2020 with Anthony GEORGE, discussed and reviewed the chart. The patient slept 7-3/4 hours previous night. He remains somewhat isolative, ruminating about discharge plans and I addressed with him at some length. [facility] staff has arranged [facility] and I addressed with him. Review of Systems: Ambulation impaired with walker. No CV, , pulmonary, eye, ENT system symptoms on review. Mental Status Exam: The patient is oriented to himself and situation. I met with him in the dayroom. Speech has some latency, coherent. Abstraction is fair. Computation is impaired. Language function intact. Mood and affect thuy ewhat withdrawn. Laboratory Data: Reviewed. Impression: Major neurocognitive disorder Alzheimer vascular with delusion, depression, behavioral disturbance. Anxiety disorder unspecified. Impulse control disorder unspecified. Plan: Continue the patient on his current psychotropics. Assessment: Vital Signs/I&O: Vital Signs Date Time Temp Pulse Resp B/P (MAP) Pulse Ox O2 Delivery O2 Flow Rate FiO2 11/30/20 05:57 96.7 81 16 108/73 (85) 7 94.0 11/27/20 06:11 Room Air I & O 11/29/20 11/29/20 11/30/20 15:00 23:00 07:00 Intake Total 440 ml 360 ml Balance 440 ml 360 ml Labs: Laboratory Tests Test 11/29/20 07:57 Glucose (Fingerstick) 136 mg/dL (70-99) H Current Medications: Meds: Laboratory Tests Test 11/29/20 07:57 Glucose (Fingerstick) 136 mg/dL Current Medications Medications (Trade) Dose Ordered Sig/Delfina Route PRN Reason Start Time Stop Time Status Last Admin Dose Admin Acetaminophen (Tylenol) 650 mg PRN Q6HRS PRN PO pain or fever 11/15/20 05:00 11/16/20 21:26 Atorvastatin Calcium (Lipitor) 20 mg QHS PO 11/15/20 21:00 11/29/20 20:45 Cetirizine HCl (ZyrTEC) 10 mg DAILY PO 11/15/20 09:00 11/29/20 07:08 Duloxetine HCl (Cymbalta) 60 mg DAILY PO 11/15/20 09:00 11/29/20 07:08 Fluticasone Propionate (Flonase) 2 spray DAILY NS 11/15/20 09:00 11/29/20 07:07 Lisinopril (Prinivil) 10 mg DAILY PO 11/15/20 09:00 11/29/20 07:09 Meloxicam (Mobic) 7.5 mg DAILY PO 11/15/20 09:00 11/29/20 07:07 Memantine (Namenda) 10 mg BID PO 11/15/20 09:00 11/29/20 20:44 Propranolol HCl (Inderal) 10 mg BID PO 11/15/20 09:00 11/29/20 20:44 Quetiapine Fumarate (SEROquel) 25 mg QHS PO 11/15/20 21:00 11/29/20 20:45 Tamsulosin HCl (Flomax) 0.4 mg BID PO 11/15/20 09:00 11/29/20 20:44 Lactulose (Lactulose) 20 gm DAILY PO 11/15/20 09:00 11/29/20 07:09 Acetaminophen (Tylenol) 650 mg PRN Q6HRS PRN PO MILD PAIN / TEMP > 100.3'F 11/15/20 05:00 UNV Multi-Ingredient Ointment (Analgesic [place]) 1 eyal PRN QID PRN TP MUSCLE PAIN 11/15/20 05:00 Al Hydroxide/Mg Hydroxide (Mylanta Plus Xs) 15 ml PRN AFTMEALHC PRN PO DYSPEPSIA 11/15/20 05:00 11/22/20 13:15 Magnesium Hydroxide (Milk Of Magnesia) 2,400 mg PRN QHS PRN PO CONSTIPATION 11/15/20 05:00 Vitamin D (Vitamin D3) 50,000 unit WEEKLY PO 11/15/20 18:00 11/29/20 07:12 Aspirin (Aspirin Chewable) 81 mg DAILY ONCE PO 11/19/20 09:00 11/19/20 09:01 DC 11/19/20 09:24 Aspirin (Aspirin Chewable) 81 mg DAILY PO 11/20/20 09:30 11/29/20 07:08 I have reviewed the current psychotropics carefully including drug interactions. Risk benefit ratio favors no change other than as noted in my dictated progress note. Diagnosis: Problems: (1) Major depressive disorder with psychotic features (2) Impulse control disorder, unspecified (3) Anxiety disorder, unspecified (4) Dementia, vascular, with depression (5) Dementia, vascular, with delusions (6) Dementia in Alzheimer's disease with depression (7) Dementia in Alzheimer's disease with delusions (8) Dementia of the Alzheimer's type with early onset with behavioral disturbance (9) Major neurocognitive disorder NATALI RABAGO MD Nov 30, 2020 07:22
[2020-11-30] MEDS: CETIRIZINE HCL 10 MG TABLET PO SCH (07:36)
[2020-11-30] MEDS: TAMSULOSIN 0.4 MG CAP.ER.24H. PO SCH ×2 (07:37→21:04)
[2020-11-30] MEDS: DULoxetine HCL 60 MG CAPSULE.DR PO SCH (07:37)
[2020-11-30] MEDS: ASPIRIN CHEWABLE 81 MG TABLET. PO SCH (07:37)
[2020-11-30] MEDS: LISINOPRIL 10 MG TABLET PO SCH (07:37)
[2020-11-30] MEDS: MEMANTINE 10 MG TABLET. PO SCH ×2 (07:37→21:04)
[2020-11-30] MEDS: MELOXICAM 7.5 MG TABLET PO SCH (07:37)
[2020-11-30] MEDS: LACTULOSE 20 GM/30 ML SOLUTION. PO SCH (07:38)
[2020-11-30] MEDS: PROPRANOLOL 10 MG TABLET. PO SCH ×2 (07:38→21:04)
[2020-11-30] MEDS: FLUTICASONE 50MCG/NASAL SPRAY 16GM BOTTLE. NS SCH (07:38)
--- NOTE | 2020-11-30 07:42 | PDOC ---
Exam Note: Nilesh Note: This note is a late entry for 11/29/2020 covers elements not covered in my initial note. Subjective: The patient was reviewed in the morning of 11/29/2020 for a treatment team meeting with Amy Paulino, Pebbles Drew and Christa (social worker health services), Reina, activity therapy and Anthony GEORGE, discussed and reviewed the chart. The patient slept 7-3/4 hours previous night. Appetite is 100%. He has been repeatedly telling the nursing staff that the ghosts are not bothering any more. He has spent more time in the dayroom, more interactive. I met with him in his room. Review of Systems: Ambulation impaired with walker. No CV, , pulmonary, eye, ENT system symptoms on review. Mental Status Exam: The patient is oriented to himself and situation. He is pleasant, repeatedly asking about discharge plans. Speech has some latency, coherent. Abstraction is fair. Computation is impaired. Language function intact. Mood and affect somewhat withdrawn. Laboratory Data: Reviewed. Impression: Major neurocognitive disorder Alzheimer vascular with delusion, depression, behavioral disturbance. Anxiety disorder unspecified. Impulse control disorder unspecified. Plan: Continue the patient on his current psychotropics. Assessment: Vital Signs/I&O: Vital Signs Date Time Temp Pulse Resp B/P (MAP) Pulse Ox O2 Delivery O2 Flow Rate FiO2 11/30/20 07:38 81 108/73 11/30/20 05:57 96.7 16 7 94.0 11/27/20 06:11 Room Air I & O 11/29/20 11/29/20 11/30/20 15:00 23:00 07:00 Intake Total 440 ml 360 ml Balance 440 ml 360 ml Labs: Laboratory Tests Test 11/29/20 07:57 Glucose (Fingerstick) 136 mg/dL (70-99) H Current Medications: Meds: Laboratory Tests Test 11/29/20 07:57 Glucose (Fingerstick) 136 mg/dL Current Medications Medications (Trade) Dose Ordered Sig/Delfina Route PRN Reason Start Time Stop Time Status Last Admin Dose Admin Acetaminophen (Tylenol) 650 mg PRN Q6HRS PRN PO pain or fever 11/15/20 05:00 11/16/20 21:26 Atorvastatin Calcium (Lipitor) 20 mg QHS PO 11/15/20 21:00 11/29/20 20:45 Cetirizine HCl (ZyrTEC) 10 mg DAILY PO 11/15/20 09:00 11/30/20 07:36 Duloxetine HCl (Cymbalta) 60 mg DAILY PO 11/15/20 09:00 11/30/20 07:37 Fluticasone Propionate (Flonase) 2 spray DAILY NS 11/15/20 09:00 11/30/20 07:38 Lisinopril (Prinivil) 10 mg DAILY PO 11/15/20 09:00 11/30/20 07:37 Meloxicam (Mobic) 7.5 mg DAILY PO 11/15/20 09:00 11/30/20 07:37 Memantine (Namenda) 10 mg BID PO 11/15/20 09:00 11/30/20 07:37 Propranolol HCl (Inderal) 10 mg BID PO 11/15/20 09:00 11/30/20 07:38 Quetiapine Fumarate (SEROquel) 25 mg QHS PO 11/15/20 21:00 11/29/20 20:45 Tamsulosin HCl (Flomax) 0.4 mg BID PO 11/15/20 09:00 11/30/20 07:37 Lactulose (Lactulose) 20 gm DAILY PO 11/15/20 09:00 11/30/20 07:38 Acetaminophen (Tylenol) 650 mg PRN Q6HRS PRN PO MILD PAIN / TEMP > 100.3'F 11/15/20 05:00 UNV Multi-Ingredient Ointment (Analgesic [place]) 1 eyal PRN QID PRN TP MUSCLE PAIN 11/15/20 05:00 Al Hydroxide/Mg Hydroxide (Mylanta Plus Xs) 15 ml PRN AFTMEALHC PRN PO DYSPEPSIA 11/15/20 05:00 11/22/20 13:15 Magnesium Hydroxide (Milk Of Magnesia) 2,400 mg PRN QHS PRN PO CONSTIPATION 11/15/20 05:00 Vitamin D (Vitamin D3) 50,000 unit WEEKLY PO 11/15/20 18:00 11/29/20 07:12 Aspirin (Aspirin Chewable) 81 mg DAILY ONCE PO 11/19/20 09:00 11/19/20 09:01 DC 4/12/21 09:24 Aspirin (Aspirin Chewable) 81 mg DAILY PO 11/20/20 09:30 11/30/20 07:37 I have reviewed the current psychotropics carefully including drug interactions. Risk benefit ratio favors no change other than as noted in my dictated progress note. Diagnosis: Problems: (1) Major depressive disorder with psychotic features (2) Impulse control disorder, unspecified (3) Anxiety disorder, unspecified (4) Dementia, vascular, with depression (5) Dementia, vascular, with delusions (6) Dementia in Alzheimer's disease with depression (7) Dementia in Alzheimer's disease with delusions (8) Dementia of the Alzheimer's type with early onset with behavioral disturbance (9) Major neurocognitive disorder NATALI RABAGO MD Nov 30, 2020 07:42
[2020-11-30] MEDS ORDERED: LOPERAMIDE 2 MG CAPSULE PO PRN ×2 (11:00)
[2020-11-30 15:34] VITALS: BP 113/73
[2020-11-30] MEDS: ATORVASTATIN CALCIUM 20 MG TABLET PO SCH (21:03)
[2020-11-30] MEDS: QUEtiapine 25 MG TABLET. PO SCH (21:04)
--- NOTE | 2020-11-30 22:06 | PDOC ---
Exam Note: Nilesh Note: Please also refer to the separate dictated note~for this date of service dictated separately.~Patient seen individually. Discussed the patient with Nursing staff reviewed the chart.~Reviewed interim history and current functioning. Reviewed vital signs,~Labs/ Radiology~and current medications noted below. Continue current treatment with the changes noted in the dictated addendum note Assessment: Vital Signs/I&O: Vital Signs Date Time Temp Pulse Resp B/P (MAP) Pulse Ox O2 Delivery O2 Flow Rate FiO2 11/30/20 21:04 97 113/73 11/30/20 15:34 97.5 16 95 Room Air 11/30/20 05:57 94.0 I & O 11/29/20 11/29/20 11/30/20 15:00 23:00 07:00 Intake Total 440 ml 360 ml Balance 440 ml 360 ml Labs: Laboratory Tests Test 11/30/20 07:50 Glucose (Fingerstick) 114 mg/dL (70-99) H Current Medications: Meds: Laboratory Tests Test 11/30/20 07:50 Glucose (Fingerstick) 114 mg/dL Current Medications Medications (Trade) Dose Ordered Sig/Delfina Route PRN Reason Start Time Stop Time Status Last Admin Dose Admin Acetaminophen (Tylenol) 650 mg PRN Q6HRS PRN PO pain or fever 11/15/20 05:00 11/16/20 21:26 Atorvastatin Calcium (Lipitor) 20 mg QHS PO 11/15/20 21:00 11/30/20 21:03 Cetirizine HCl (ZyrTEC) 10 mg DAILY PO 11/15/20 09:00 11/30/20 07:36 Duloxetine HCl (Cymbalta) 60 mg DAILY PO 11/15/20 09:00 11/30/20 07:37 Fluticasone Propionate (Flonase) 2 spray DAILY NS 11/15/20 09:00 11/30/20 07:38 Lisinopril (Prinivil) 10 mg DAILY PO 11/15/20 09:00 11/30/20 07:37 Meloxicam (Mobic) 7.5 mg DAILY PO 11/15/20 09:00 11/30/20 07:37 Memantine (Namenda) 10 mg BID PO 11/15/20 09:00 11/30/20 21:04 Propranolol HCl (Inderal) 10 mg BID PO 11/15/20 09:00 11/30/20 21:04 Quetiapine Fumarate (SEROquel) 25 mg QHS PO 11/15/20 21:00 11/30/20 21:04 Tamsulosin HCl (Flomax) 0.4 mg BID PO 11/15/20 09:00 11/30/20 21:04 Lactulose (Lactulose) 20 gm DAILY PO 11/15/20 09:00 11/30/20 07:38 Acetaminophen (Tylenol) 650 mg PRN Q6HRS PRN PO MILD PAIN / TEMP > 100.3'F 11/15/20 05:00 UNV Multi-Ingredient Ointment (Analgesic [place]) 1 eyal PRN QID PRN TP MUSCLE PAIN 11/15/20 05:00 Al Hydroxide/Mg Hydroxide (Mylanta Plus Xs) 15 ml PRN AFTMEALHC PRN PO DYSPEPSIA 11/15/20 05:00 11/22/20 13:15 Magnesium Hydroxide (Milk Of Magnesia) 2,400 mg PRN QHS PRN PO CONSTIPATION 11/15/20 05:00 Vitamin D (Vitamin D3) 50,000 unit WEEKLY PO 11/15/20 18:00 11/29/20 07:12 Aspirin (Aspirin Chewable) 81 mg DAILY ONCE PO 11/19/20 09:00 11/19/20 09:01 DC 11/19/20 09:24 Aspirin (Aspirin Chewable) 81 mg DAILY PO 11/20/20 09:30 11/30/20 07:37 Loperamide HCl (Imodium) 4 mg PRN DAILY PRN PO diarrhea 11/30/20 11:00 11/30/20 11:46 Loperamide HCl (Imodium) 2 mg PRN Q15MIN PRN PO DIARRHEA 11/30/20 11:00 Current Medications Medications (Trade) Dose Ordered Sig/Delfina Route PRN Reason Start Time Stop Time Status Last Admin Dose Admin Loperamide HCl (Imodium) 4 mg PRN DAILY PRN PO diarrhea 11/30/20 11:00 11/30/20 11:46 I have reviewed the current psychotropics carefully including drug interactions. Risk benefit ratio favors no change other than as noted in my dictated progress note. Diagnosis: Problems: (1) Major depressive disorder with psychotic features (2) Impulse control disorder, unspecified (3) Anxiety disorder, unspecified (4) Dementia, vascular, with depression (5) Dementia, vascular, with delusions (6) Dementia in Alzheimer's disease with depression (7) Dementia in Alzheimer's disease with delusions (8) Dementia of the Alzheimer's type with early onset with behavioral disturbance (9) Major neurocognitive disorder NATALI RABAGO MD Nov 30, 2020 22:06
[2020-12-01 06:40] VITALS: BP 106/70
[2020-12-01] MEDS: LACTULOSE 20 GM/30 ML SOLUTION. PO SCH (08:05)
[2020-12-01] MEDS: FLUTICASONE 50MCG/NASAL SPRAY 16GM BOTTLE. NS SCH (08:05)
[2020-12-01] MEDS: ASPIRIN CHEWABLE 81 MG TABLET. PO SCH (08:07)
[2020-12-01] MEDS: LISINOPRIL 10 MG TABLET PO SCH (08:07)
[2020-12-01] MEDS: MELOXICAM 7.5 MG TABLET PO SCH (08:07)
[2020-12-01] MEDS: DULoxetine HCL 60 MG CAPSULE.DR PO SCH (08:07)
[2020-12-01] MEDS: TAMSULOSIN 0.4 MG CAP.ER.24H. PO SCH ×2 (08:07→20:50)
[2020-12-01] MEDS: MEMANTINE 10 MG TABLET. PO SCH ×2 (08:07→20:50)
[2020-12-01] MEDS: PROPRANOLOL 10 MG TABLET. PO SCH ×2 (08:08→20:50)
[2020-12-01] MEDS: CETIRIZINE HCL 10 MG TABLET PO SCH (08:08)
[2020-12-01 15:52] VITALS: BP 126/85
[2020-12-01] MEDS: ATORVASTATIN CALCIUM 20 MG TABLET PO SCH (20:50)
[2020-12-01] MEDS: QUEtiapine 25 MG TABLET. PO SCH (20:50)
--- NOTE | 2020-12-01 21:58 | PDOC ---
Exam Note: Nilesh Note: Please also refer to the separate dictated note~for this date of service dictated separately.~Patient seen individually. Discussed the patient with Nursing staff reviewed the chart.~Reviewed interim history and current functioning. Reviewed vital signs,~Labs/ Radiology~and current medications noted below. Continue current treatment with the changes noted in the dictated addendum note Assessment: Vital Signs/I&O: Vital Signs Date Time Temp Pulse Resp B/P (MAP) Pulse Ox O2 Delivery O2 Flow Rate FiO2 12/01/20 20:50 82 126/85 12/01/20 15:52 96.5 18 94 11/30/20 15:34 Room Air 11/30/20 05:57 94.0 I & O 11/30/20 11/30/20 12/01/20 15:00 23:00 07:00 Intake Total 600 ml 480 ml 120 ml Balance 600 ml 480 ml 120 ml Labs: Laboratory Tests Test 12/01/20 07:26 Glucose (Fingerstick) 109 mg/dL (70-99) H Current Medications: Meds: Laboratory Tests Test 12/01/20 07:26 Glucose (Fingerstick) 109 mg/dL Current Medications Medications (Trade) Dose Ordered Sig/Delfina Route PRN Reason Start Time Stop Time Status Last Admin Dose Admin Acetaminophen (Tylenol) 650 mg PRN Q6HRS PRN PO pain or fever 11/15/20 05:00 11/16/20 21:26 Atorvastatin Calcium (Lipitor) 20 mg QHS PO 11/15/20 21:00 12/01/20 20:50 Cetirizine HCl (ZyrTEC) 10 mg DAILY PO 11/15/20 09:00 12/01/20 08:08 Duloxetine HCl (Cymbalta) 60 mg DAILY PO 11/15/20 09:00 12/01/20 08:07 Fluticasone Propionate (Flonase) 2 spray DAILY NS 11/15/20 09:00 12/01/20 08:05 Lisinopril (Prinivil) 10 mg DAILY PO 11/15/20 09:00 12/01/20 08:07 Meloxicam (Mobic) 7.5 mg DAILY PO 11/15/20 09:00 12/01/20 08:07 Memantine (Namenda) 10 mg BID PO 11/15/20 09:00 12/01/20 20:50 Propranolol HCl (Inderal) 10 mg BID PO 11/15/20 09:00 12/01/20 20:50 Quetiapine Fumarate (SEROquel) 25 mg QHS PO 11/15/20 21:00 12/01/20 20:50 Tamsulosin HCl (Flomax) 0.4 mg BID PO 11/15/20 09:00 12/01/20 20:50 Lactulose (Lactulose) 20 gm DAILY PO 11/15/20 09:00 12/01/20 08:05 Acetaminophen (Tylenol) 650 mg PRN Q6HRS PRN PO MILD PAIN / TEMP > 100.3'F 11/15/20 05:00 UNV Multi-Ingredient Ointment (Analgesic [place]) 1 eyal PRN QID PRN TP MUSCLE PAIN 11/15/20 05:00 Al Hydroxide/Mg Hydroxide (Mylanta Plus Xs) 15 ml PRN AFTMEALHC PRN PO DYSPEPSIA 11/15/20 05:00 11/22/20 13:15 Magnesium Hydroxide (Milk Of Magnesia) 2,400 mg PRN QHS PRN PO CONSTIPATION 11/15/20 05:00 Vitamin D (Vitamin D3) 50,000 unit WEEKLY PO 11/15/20 18:00 11/29/20 07:12 Aspirin (Aspirin Chewable) 81 mg DAILY ONCE PO 11/19/20 09:00 11/19/20 09:01 DC 11/19/20 09:24 Aspirin (Aspirin Chewable) 81 mg DAILY PO 11/20/20 09:30 12/01/20 08:07 Loperamide HCl (Imodium) 4 mg PRN DAILY PRN PO diarrhea 11/30/20 11:00 11/30/20 11:46 Loperamide HCl (Imodium) 2 mg PRN Q15MIN PRN PO DIARRHEA 11/30/20 11:00 I have reviewed the current psychotropics carefully including drug interactions. Risk benefit ratio favors no change other than as noted in my dictated progress note. Diagnosis: Problems: (1) Major depressive disorder with psychotic features (2) Impulse control disorder, unspecified (3) Anxiety disorder, unspecified (4) Dementia, vascular, with depression (5) Dementia, vascular, with delusions (6) Dementia in Alzheimer's disease with depression (7) Dementia in Alzheimer's disease with delusions (8) Dementia of the Alzheimer's type with early onset with behavioral disturbance (9) Major neurocognitive disorder NATALI RABAGO MD Dec 01, 2020 21:58
[2020-12-02 06:16] VITALS: BP 120/78
[2020-12-02] MEDS: FLUTICASONE 50MCG/NASAL SPRAY 16GM BOTTLE. NS SCH (08:36)
[2020-12-02] MEDS: LACTULOSE 20 GM/30 ML SOLUTION. PO SCH (08:36)
[2020-12-02] MEDS: LISINOPRIL 10 MG TABLET PO SCH (08:37)
[2020-12-02] MEDS: CETIRIZINE HCL 10 MG TABLET PO SCH (08:37)
[2020-12-02] MEDS: MELOXICAM 7.5 MG TABLET PO SCH (08:37)
[2020-12-02] MEDS: TAMSULOSIN 0.4 MG CAP.ER.24H. PO SCH ×2 (08:37→21:11)
[2020-12-02] MEDS: MEMANTINE 10 MG TABLET. PO SCH ×2 (08:37→21:11)
[2020-12-02] MEDS: PROPRANOLOL 10 MG TABLET. PO SCH ×2 (08:38→21:11)
[2020-12-02] MEDS: DULoxetine HCL 60 MG CAPSULE.DR PO SCH (08:38)
[2020-12-02] MEDS: ASPIRIN CHEWABLE 81 MG TABLET. PO SCH (08:38)
[2020-12-02 16:00] VITALS: BP 138/80
[2020-12-02] MEDS: ATORVASTATIN CALCIUM 20 MG TABLET PO SCH (21:11)
[2020-12-02] MEDS: QUEtiapine 25 MG TABLET. PO SCH (21:11)
--- NOTE | 2020-12-02 22:08 | PDOC ---
Exam Note: Nilesh Note: Please also refer to the separate dictated note~for this date of service dictated separately.~Patient seen individually. Discussed the patient with Nursing staff reviewed the chart.~Reviewed interim history and current functioning. Reviewed vital signs,~Labs/ Radiology~and current medications noted below. Continue current treatment with the changes noted in the dictated addendum note Assessment: Vital Signs/I&O: Vital Signs Date Time Temp Pulse Resp B/P (MAP) Pulse Ox O2 Delivery O2 Flow Rate FiO2 12/02/20 21:11 95 138/80 12/02/20 16:00 97.9 16 94 11/30/20 15:34 Room Air 11/30/20 05:57 94.0 I & O 12/01/20 12/01/20 12/02/20 14:59 22:59 06:59 Intake Total 600 ml 720 ml Balance 600 ml 720 ml Current Medications: Meds: Current Medications Medications (Trade) Dose Ordered Sig/Delfina Route PRN Reason Start Time Stop Time Status Last Admin Dose Admin Acetaminophen (Tylenol) 650 mg PRN Q6HRS PRN PO pain or fever 11/15/20 05:00 11/16/20 21:26 Atorvastatin Calcium (Lipitor) 20 mg QHS PO 11/15/20 21:00 12/02/20 21:11 Cetirizine HCl (ZyrTEC) 10 mg DAILY PO 11/15/20 09:00 12/02/20 08:37 Duloxetine HCl (Cymbalta) 60 mg DAILY PO 11/15/20 09:00 12/02/20 08:38 Fluticasone Propionate (Flonase) 2 spray DAILY NS 11/15/20 09:00 12/02/20 08:36 Lisinopril (Prinivil) 10 mg DAILY PO 11/15/20 09:00 12/02/20 08:37 Meloxicam (Mobic) 7.5 mg DAILY PO 11/15/20 09:00 12/02/20 08:37 Memantine (Namenda) 10 mg BID PO 11/15/20 09:00 12/02/20 21:11 Propranolol HCl (Inderal) 10 mg BID PO 11/15/20 09:00 12/02/20 21:11 Quetiapine Fumarate (SEROquel) 25 mg QHS PO 11/15/20 21:00 12/02/20 21:11 Tamsulosin HCl (Flomax) 0.4 mg BID PO 11/15/20 09:00 12/02/20 21:11 Lactulose (Lactulose) 20 gm DAILY PO 11/15/20 09:00 12/02/20 08:36 Acetaminophen (Tylenol) 650 mg PRN Q6HRS PRN PO MILD PAIN / TEMP > 100.3'F 11/15/20 05:00 UNV Multi-Ingredient Ointment (Analgesic [place]) 1 eyal PRN QID PRN TP MUSCLE PAIN 11/15/20 05:00 Al Hydroxide/Mg Hydroxide (Mylanta Plus Xs) 15 ml PRN AFTMEALHC PRN PO DYSPEPSIA 11/15/20 05:00 11/22/20 13:15 Magnesium Hydroxide (Milk Of Magnesia) 2,400 mg PRN QHS PRN PO CONSTIPATION 11/15/20 05:00 Vitamin D (Vitamin D3) 50,000 unit WEEKLY PO 11/15/20 18:00 11/29/20 07:12 Aspirin (Aspirin Chewable) 81 mg DAILY ONCE PO 11/19/20 09:00 11/19/20 09:01 DC 11/19/20 09:24 Aspirin (Aspirin Chewable) 81 mg DAILY PO 11/20/20 09:30 12/02/20 08:38 Loperamide HCl (Imodium) 4 mg PRN DAILY PRN PO diarrhea 11/30/20 11:00 11/30/20 11:46 Loperamide HCl (Imodium) 2 mg PRN Q15MIN PRN PO DIARRHEA 11/30/20 11:00 I have reviewed the current psychotropics carefully including drug interactions. Risk benefit ratio favors no change other than as noted in my dictated progress note. Diagnosis: Problems: (1) Major depressive disorder with psychotic features (2) Impulse control disorder, unspecified (3) Anxiety disorder, unspecified (4) Dementia, vascular, with depression (5) Dementia, vascular, with delusions (6) Dementia in Alzheimer's disease with depression (7) Dementia in Alzheimer's disease with delusions (8) Dementia of the Alzheimer's type with early onset with behavioral disturbance (9) Major neurocognitive disorder NATALI RABAGO MD Dec 02, 2020 22:08
[2020-12-03] MEDS ORDERED: ASPI-630 PO (01:04)
[2020-12-03] MEDS ORDERED: METH57CR17 TP (01:06)
[2020-12-03] MEDS ORDERED: LOPE2CAP3 PO (01:07)
[2020-12-03] MEDS ORDERED: MAG30ORA2 PO (01:07)
[2020-12-03] MEDS ORDERED: LOPE2TAB27 PO (01:09)
[2020-12-03] MEDS ORDERED: MAGN400O7 PO (01:11)
[2020-12-03] MEDS ORDERED: CHOL500021 PO (01:12)
[2020-12-03 06:35] VITALS: BP 108/70
--- NOTE | 2020-12-03 06:39 | PDOC ---
Exam Note: Nilesh Note: This note is a late entry for 11/30/2020 covers elements not covered in my initial note. Subjective: The patient was seen individually in the evening of 11/30/2020 with Anthony GEORGE, discussed and reviewed the chart. The patient slept 7 hours previous night. I met with him in his room and there is essentially no change. He still had questions about his discharge. We addressed this. He has been cooperative, redirects with overt psychotic symptoms and sexually inappropriate comments have not been noticed. Review of Systems: Ambulation impaired with walker. No CV, , pulmonary, eye, ENT system symptoms on review. Mental Status Exam: The patient is oriented to himself and situation. Speech coherent, has some latency. Abstraction is fair. Computation is impaired. Language function intact. Mood and affect somewhat withdrawn. Laboratory Data: Reviewed. Impression: Major neurocognitive disorder Alzheimer vascular with delusion, d epression, behavioral disturbance. Anxiety disorder unspecified. Impulse control disorder unspecified. Plan: Continue the patient on his current psychotropics. Assessment: Vital Signs/I&O: Vital Signs Date Time Temp Pulse Resp B/P (MAP) Pulse Ox O2 Delivery O2 Flow Rate FiO2 12/03/20 06:35 97.3 76 18 108/70 (83) 94 11/30/20 15:34 Room Air 11/30/20 05:57 94.0 I & O 12/02/20 12/02/20 12/03/20 15:00 23:00 07:00 Intake Total 600 ml 480 ml 360 ml Balance 600 ml 480 ml 360 ml Current Medications: Meds: Current Medications Medications (Trade) Dose Ordered Sig/Delfina Route PRN Reason Start Time Stop Time Status Last Admin Dose Admin Acetaminophen (Tylenol) 650 mg PRN Q6HRS PRN PO pain or fever 11/15/20 05:00 11/16/20 21:26 Atorvastatin Calcium (Lipitor) 20 mg QHS PO 11/15/20 21:00 12/02/20 21:11 Cetirizine HCl (ZyrTEC) 10 mg DAILY PO 11/15/20 09:00 12/02/20 08:37 Duloxetine HCl (Cymbalta) 60 mg DAILY PO 11/15/20 09:00 12/02/20 08:38 Fluticasone Propionate (Flonase) 2 spray DAILY NS 11/15/20 09:00 12/02/20 08:36 Lisinopril (Prinivil) 10 mg DAILY PO 11/15/20 09:00 12/02/20 08:37 Meloxicam (Mobic) 7.5 mg DAILY PO 11/15/20 09:00 12/02/20 08:37 Memantine (Namenda) 10 mg BID PO 11/15/20 09:00 12/02/20 21:11 Propranolol HCl (Inderal) 10 mg BID PO 11/15/20 09:00 12/02/20 21:11 Quetiapine Fumarate (SEROquel) 25 mg QHS PO 11/15/20 21:00 12/02/20 21:11 Tamsulosin HCl (Flomax) 0.4 mg BID PO 11/15/20 09:00 12/02/20 21:11 Lactulose (Lactulose) 20 gm DAILY PO 11/15/20 09:00 12/02/20 08:36 Acetaminophen (Tylenol) 650 mg PRN Q6HRS PRN PO MILD PAIN / TEMP > 100.3'F 11/15/20 05:00 UNV Multi-Ingredient Ointment (Analgesic [place]) 1 eyal PRN QID PRN TP MUSCLE PAIN 11/15/20 05:00 Al Hydroxide/Mg Hydroxide (Mylanta Plus Xs) 15 ml PRN AFTMEALHC PRN PO DYSPEPSIA 11/15/20 05:00 11/22/20 13:15 Magnesium Hydroxide (Milk Of Magnesia) 2,400 mg PRN QHS PRN PO CONSTIPATION 11/15/20 05:00 Vitamin D (Vitamin D3) 50,000 unit WEEKLY PO 11/15/20 18:00 11/29/20 07:12 Aspirin (Aspirin Chewable) 81 mg DAILY ONCE PO 11/19/20 09:00 11/19/20 09:01 DC 11/19/20 09:24 Aspirin (Aspirin Chewable) 81 mg DAILY PO 11/20/20 09:30 12/02/20 08:38 Loperamide HCl (Imodium) 4 mg PRN DAILY PRN PO diarrhea 11/30/20 11:00 11/30/20 11:46 Loperamide HCl (Imodium) 2 mg PRN Q15MIN PRN PO DIARRHEA 11/30/20 11:00 I have reviewed the current psychotropics carefully including drug interactions. Risk benefit ratio favors no change other than as noted in my dictated progress note. Diagnosis: Problems: (1) Major depressive disorder with psychotic features (2) Impulse control disorder, unspecified (3) Anxiety disorder, unspecified (4) Dementia, vascular, with depression (5) Dementia, vascular, with delusions (6) Dementia in Alzheimer's disease with depression (7) Dementia in Alzheimer's disease with delusions (8) Dementia of the Alzheimer's type with early onset with behavioral disturbance (9) Major neurocognitive disorder NATALI RABAGO MD Dec 03, 2020 06:39
--- NOTE | 2020-12-03 07:20 | PDOC ---
Exam Note: Nilesh Note: This note is a late entry for 12/01/2020 covers elements not covered in my initial note. Subjective: The patient was seen individually in the evening of 12/01/2020 with Jolly GEORGE, discussed and reviewed the chart. The patient slept 8 hours previous night. He is compliant with medications. Review of Systems: Ambulation impaired with walker. No CV, , pulmonary, eye, ENT system symptoms on review. Mental Status Exam: The patient is oriented to himself and situation. He is pleasant. I met with him in his room. Speech coherent. Abstraction is fair. Computation is impaired. Language function intact. Mood and affect somewhat withdrawn. Laboratory Data: Reviewed. Impression: Major neurocognitive disorder Alzheimer vascular with delusion, depression, behavioral disturbance. Anxiety disorder unspecified. Impulse control disorder unspecified. Plan: Continue the patient on his current psychotropics. [facility]. Assessment: Vital Signs/I&O: Vital Signs Date Time Temp Pulse Resp B/P (MAP) Pulse Ox O2 Delivery O2 Flow Rate FiO2 12/03/20 06:35 97.3 76 18 108/70 (83) 94 11/30/20 15:34 Room Air 11/30/20 05:57 94.0 I & O 12/02/20 12/02/20 12/03/20 15:00 23:00 07:00 Intake Total 600 ml 480 ml 360 ml Balance 600 ml 480 ml 360 ml Current Medications: Meds: Current Medications Medications (Trade) Dose Ordered Sig/Delfina Route PRN Reason Start Time Stop Time Status Last Admin Dose Admin Acetaminophen (Tylenol) 650 mg PRN Q6HRS PRN PO pain or fever 11/15/20 05:00 11/16/20 21:26 Atorvastatin Calcium (Lipitor) 20 mg QHS PO 11/15/20 21:00 12/02/20 21:11 Cetirizine HCl (ZyrTEC) 10 mg DAILY PO 11/15/20 09:00 12/02/20 08:37 Duloxetine HCl (Cymbalta) 60 mg DAILY PO 11/15/20 09:00 12/02/20 08:38 Fluticasone Propionate (Flonase) 2 spray DAILY NS 11/15/20 09:00 12/02/20 08:36 Lisinopril (Prinivil) 10 mg DAILY PO 11/15/20 09:00 12/02/20 08:37 Meloxicam (Mobic) 7.5 mg DAILY PO 11/15/20 09:00 12/02/20 08:37 Memantine (Namenda) 10 mg BID PO 11/15/20 09:00 12/02/20 21:11 Propranolol HCl (Inderal) 10 mg BID PO 11/15/20 09:00 12/02/20 21:11 Quetiapine Fumarate (SEROquel) 25 mg QHS PO 11/15/20 21:00 12/02/20 21:11 Tamsulosin HCl (Flomax) 0.4 mg BID PO 11/15/20 09:00 12/02/20 21:11 Lactulose (Lactulose) 20 gm DAILY PO 11/15/20 09:00 12/02/20 08:36 Acetaminophen (Tylenol) 650 mg PRN Q6HRS PRN PO MILD PAIN / TEMP > 100.3'F 11/15/20 05:00 UNV Multi-Ingredient Ointment (Analgesic [place]) 1 eyal PRN QID PRN TP MUSCLE PAIN 11/15/20 05:00 Al Hydroxide/Mg Hydroxide (Mylanta Plus Xs) 15 ml PRN AFTMEALHC PRN PO DYSPEPSIA 11/15/20 05:00 11/22/20 13:15 Magnesium Hydroxide (Milk Of Magnesia) 2,400 mg PRN QHS PRN PO CONSTIPATION 11/15/20 05:00 Vitamin D (Vitamin D3) 50,000 unit WEEKLY PO 11/15/20 18:00 11/29/20 07:12 Aspirin (Aspirin Chewable) 81 mg DAILY ONCE PO 11/19/20 09:00 11/19/20 09:01 DC 11/19/20 09:24 Aspirin (Aspirin Chewable) 81 mg DAILY PO 11/20/20 09:30 12/02/20 08:38 Loperamide HCl (Imodium) 4 mg PRN DAILY PRN PO diarrhea 11/30/20 11:00 11/30/20 11:46 Loperamide HCl (Imodium) 2 mg PRN Q15MIN PRN PO DIARRHEA 11/30/20 11:00 I have reviewed the current psychotropics carefully including drug interactions. Risk benefit ratio favors no change other than as noted in my dictated progress note. Diagnosis: Problems: (1) Major depressive disorder with psychotic features (2) Impulse control disorder, unspecified (3) Anxiety disorder, unspecified (4) Dementia, vascular, with depression (5) Dementia, vascular, with delusions (6) Dementia in Alzheimer's disease with depression (7) Dementia in Alzheimer's disease with delusions (8) Dementia of the Alzheimer's type with early onset with behavioral disturbance (9) Major neurocognitive disorder NATALI RABAGO MD Dec 03, 2020 07:20
--- NOTE | 2020-12-03 08:10 | PDOC ---
Exam Note: Nilesh Note: This note is a late entry for 12/02/2020 covers elements not covered in my initial note. Subjective: The patient was seen individually in the evening of 12/02/2020 with Candis GEORGE, discussed and reviewed the chart. The patient slept 6-1/4 hours previous night. He is compliant with his medications. I met with him in his room. Tentative discharge plans are for tomorrow and I addressed this with him. Review of Systems: Ambulation impaired with walker. No CV, , pulmonary, eye, ENT system symptoms on review. Mental Status Exam: The patient is oriented to himself and situation. I met with him in his room. Speech coherent. Abstraction is fair. Computation is impaired. Language function intact. Mood and affect somewhat withdrawn. Laboratory Data: Reviewed. Impression: Major neurocognitive disorder Alzheimer vascular with delusion, depression, behavioral disturbance. Anxiety disorder unspecified. Impulse control disorder unspecified. Plan: Continue the patient on his current psychotropics. Tentative discharge for tomorrow. Assessment: Vital Signs/I&O: Vital Signs Date Time Temp Pulse Resp B/P (MAP) Pulse Ox O2 Delivery O2 Flow Rate FiO2 12/03/20 06:35 97.3 76 18 108/70 (83) 94 11/30/20 15:34 Room Air 11/30/20 05:57 94.0 I & O 12/02/20 12/02/20 12/03/20 15:00 23:00 07:00 Intake Total 600 ml 480 ml 360 ml Balance 600 ml 480 ml 360 ml Current Medications: Meds: Current Medications Medications (Trade) Dose Ordered Sig/Delfina Route PRN Reason Start Time Stop Time Status Last Admin Dose Admin Acetaminophen (Tylenol) 650 mg PRN Q6HRS PRN PO pain or fever 11/15/20 05:00 11/16/20 21:26 Atorvastatin Calcium (Lipitor) 20 mg QHS PO 11/15/20 21:00 12/02/20 21:11 Cetirizine HCl (ZyrTEC) 10 mg DAILY PO 11/15/20 09:00 12/02/20 08:37 Duloxetine HCl (Cymbalta) 60 mg DAILY PO 11/15/20 09:00 12/02/20 08:38 Fluticasone Propionate (Flonase) 2 spray DAILY NS 11/15/20 09:00 12/02/20 08:36 Lisinopril (Prinivil) 10 mg DAILY PO 11/15/20 09:00 12/02/20 08:37 Meloxicam (Mobic) 7.5 mg DAILY PO 11/15/20 09:00 12/02/20 08:37 Memantine (Namenda) 10 mg BID PO 11/15/20 09:00 12/02/20 21:11 Propranolol HCl (Inderal) 10 mg BID PO 11/15/20 09:00 12/02/20 21:11 Quetiapine Fumarate (SEROquel) 25 mg QHS PO 11/15/20 21:00 12/02/20 21:11 Tamsulosin HCl (Flomax) 0.4 mg BID PO 11/15/20 09:00 12/02/20 21:11 Lactulose (Lactulose) 20 gm DAILY PO 11/15/20 09:00 12/02/20 08:36 Acetaminophen (Tylenol) 650 mg PRN Q6HRS PRN PO MILD PAIN / TEMP > 100.3'F 11/15/20 05:00 UNV Multi-Ingredient Ointment (Analgesic [place]) 1 eyal PRN QID PRN TP MUSCLE PAIN 11/15/20 05:00 Al Hydroxide/Mg Hydroxide (Mylanta Plus Xs) 15 ml PRN AFTMEALHC PRN PO DYSPEPSIA 11/15/20 05:00 11/22/20 13:15 Magnesium Hydroxide (Milk Of Magnesia) 2,400 mg PRN QHS PRN PO CONSTIPATION 11/15/20 05:00 Vitamin D (Vitamin D3) 50,000 unit WEEKLY PO 11/15/20 18:00 11/29/20 07:12 Aspirin (Aspirin Chewable) 81 mg DAILY ONCE PO 11/19/20 09:00 11/19/20 09:01 DC 11/19/20 09:24 Aspirin (Aspirin Chewable) 81 mg DAILY PO 11/20/20 09:30 12/02/20 08:38 Loperamide HCl (Imodium) 4 mg PRN DAILY PRN PO diarrhea 11/30/20 11:00 11/30/20 11:46 Loperamide HCl (Imodium) 2 mg PRN Q15MIN PRN PO DIARRHEA 11/30/20 11:00 I have reviewed the current psychotropics carefully including drug interactions. Risk benefit ratio favors no change other than as noted in my dictated progress note. Diagnosis: Problems: (1) Major depressive disorder with psychotic features (2) Impulse control disorder, unspecified (3) Anxiety disorder, unspecified (4) Dementia, vascular, with depression (5) Dementia, vascular, with delusions (6) Dementia in Alzheimer's disease with depression (7) Dementia in Alzheimer's disease with delusions (8) Dementia of the Alzheimer's type with early onset with behavioral disturbance (9) Major neurocognitive disorder NATALI RABAGO MD Dec 03, 2020 08:10
[2020-12-03] MEDS: DULoxetine HCL 60 MG CAPSULE.DR PO SCH (09:37)
[2020-12-03] MEDS: MELOXICAM 7.5 MG TABLET PO SCH (09:37)
[2020-12-03] MEDS: CETIRIZINE HCL 10 MG TABLET PO SCH (09:37)
[2020-12-03] MEDS: LISINOPRIL 10 MG TABLET PO SCH (09:37)
[2020-12-03 09:38] VITALS: BP 108/70
[2020-12-03] MEDS: ASPIRIN CHEWABLE 81 MG TABLET. PO SCH (09:38)
[2020-12-03] MEDS: TAMSULOSIN 0.4 MG CAP.ER.24H. PO SCH (09:38)
[2020-12-03] MEDS: PROPRANOLOL 10 MG TABLET. PO SCH (09:38)
[2020-12-03] MEDS: LACTULOSE 20 GM/30 ML SOLUTION. PO SCH (09:38)
[2020-12-03] MEDS: MEMANTINE 10 MG TABLET. PO SCH (09:38)
[2020-12-03] MEDS: FLUTICASONE 50MCG/NASAL SPRAY 16GM BOTTLE. NS SCH (09:39)
--- NOTE | 2020-12-03 22:05 | PDOC ---
Exam Note: Nilesh Note: Please also refer to the separate dictated note~for this date of service dictated separately.~Patient seen individually. Discussed the patient with Nursing staff reviewed the chart.~Reviewed interim history and current functioning. Reviewed vital signs,~Labs/ Radiology~and current medications noted below. Continue current treatment with the changes noted in the dictated addendum note Assessment: Vital Signs/I&O: Vital Signs Date Time Temp Pulse Resp B/P (MAP) Pulse Ox O2 Delivery O2 Flow Rate FiO2 12/03/20 09:38 76 108/70 12/03/20 06:35 97.3 18 94 11/30/20 15:34 Room Air 11/30/20 05:57 94.0 I & O 12/02/20 12/02/20 12/03/20 15:00 23:00 07:00 Intake Total 600 ml 480 ml 360 ml Balance 600 ml 480 ml 360 ml Current Medications: Meds: Current Medications Medications (Trade) Dose Ordered Sig/Delfina Route PRN Reason Start Time Stop Time Status Last Admin Dose Admin Acetaminophen (Tylenol) 650 mg PRN Q6HRS PRN PO pain or fever 11/15/20 05:00 12/03/20 11:14 DC 11/16/20 21:26 Atorvastatin Calcium (Lipitor) 20 mg QHS PO 11/15/20 21:00 12/03/20 11:14 DC 12/02/20 21:11 Cetirizine HCl (ZyrTEC) 10 mg DAILY PO 11/15/20 09:00 12/03/20 11:14 DC 12/03/20 09:37 Duloxetine HCl (Cymbalta) 60 mg DAILY PO 11/15/20 09:00 12/03/20 11:14 DC 12/03/20 09:37 Fluticasone Propionate (Flonase) 2 spray DAILY NS 11/15/20 09:00 12/03/20 11:14 DC 12/03/20 09:39 Lisinopril (Prinivil) 10 mg DAILY PO 11/15/20 09:00 12/03/20 11:14 DC 12/03/20 09:37 Meloxicam (Mobic) 7.5 mg DAILY PO 11/15/20 09:00 12/03/20 11:14 DC 12/03/20 09:37 Memantine (Namenda) 10 mg BID PO 11/15/20 09:00 12/03/20 11:14 DC 12/03/20 09:38 Propranolol HCl (Inderal) 10 mg BID PO 11/15/20 09:00 12/03/20 11:14 DC 12/03/20 09:38 Quetiapine Fumarate (SEROquel) 25 mg QHS PO 11/15/20 21:00 12/03/20 11:14 DC 12/02/20 21:11 Tamsulosin HCl (Flomax) 0.4 mg BID PO 11/15/20 09:00 12/03/20 11:14 DC 12/03/20 09:38 Lactulose (Lactulose) 20 gm DAILY PO 11/15/20 09:00 12/03/20 11:14 DC 12/03/20 09:38 Acetaminophen (Tylenol) 650 mg PRN Q6HRS PRN PO MILD PAIN / TEMP > 100.3'F 11/15/20 05:00 UNV Multi-Ingredient Ointment (Analgesic [place]) 1 eyal PRN QID PRN TP MUSCLE PAIN 11/15/20 05:00 12/03/20 11:14 DC Al Hydroxide/Mg Hydroxide (Mylanta Plus Xs) 15 ml PRN AFTMEALHC PRN PO DYSPEPSIA 11/15/20 05:00 12/03/20 11:14 DC 11/22/20 13:15 Magnesium Hydroxide (Milk Of Magnesia) 2,400 mg PRN QHS PRN PO CONSTIPATION 11/15/20 05:00 12/03/20 11:14 DC Vitamin D (Vitamin D3) 50,000 unit WEEKLY PO 11/15/20 18:00 12/03/20 11:14 DC 11/29/20 07:12 Aspirin (Aspirin Chewable) 81 mg DAILY ONCE PO 11/19/20 09:00 11/19/20 09:01 DC 11/19/20 09:24 Aspirin (Aspirin Chewable) 81 mg DAILY PO 11/20/20 09:30 12/03/20 11:14 DC 12/03/20 09:38 Loperamide HCl (Imodium) 4 mg PRN DAILY PRN PO diarrhea 11/30/20 11:00 12/03/20 11:14 DC 11/30/20 11:46 Loperamide HCl (Imodium) 2 mg PRN Q15MIN PRN PO DIARRHEA 11/30/20 11:00 12/03/20 11:14 DC I have reviewed the current psychotropics carefully including drug interactions. Risk benefit ratio favors no change other than as noted in my dictated progress note. Diagnosis: Problems: (1) Major depressive disorder with psychotic features (2) Impulse control disorder, unspecified (3) Anxiety disorder, unspecified (4) Dementia, vascular, with depression (5) Dementia, vascular, with delusions (6) Dementia in Alzheimer's disease with depression (7) Dementia in Alzheimer's disease with delusions (8) Dementia of the Alzheimer's type with early onset with behavioral dist urbance (9) Major neurocognitive disorder NATALI RABAGO MD Dec 03, 2020 22:05
--- NOTE | 2020-12-04 21:59 | DS ---
DATE OF DISCHARGE: 12/03/2020 PSYCHIATRIC PROGRESS NOTE This late entry date of service 12/03/2020 covers elements not covered in my initial note. REASON FOR ADMISSION: Please refer to the admission history for details. Briefly, the patient is a 70-year-old male referred from [facility] on account of worsening confusion, marked insomnia, anxiety, delusional, believing his was having sex with him. He felt door hinges were melting off. He was seeing water coming out of the electrical cords, thinking that town was being shut down and he needed to escape through porthole. The patient's behaviors were deemed unmanageable at the facility, had failed outpatient psychiatric interventions resulting in this referral. SIGNIFICANT FINDINGS AND CLINICAL COURSE: Following admission, the patient was seen daily individually by myself from a psychiatric standpoint, medical followup with Dr. Conteh/Dr. Jin. The patient remains somewhat paranoid, delusional but seemed to respond to a combination of Cymbalta 60 mg a day, Seroquel 25 mg at bedtime, Namenda 10 mg b.i.d. REVIEW OF SYSTEMS: Prior to discharge on 12/03/2020; no CV, , pulmonary, eye system symptoms on review. Does have some weakness, status post cerebrovascular accident. MENTAL STATUS EXAM: Oriented to himself and situation. Speech has some latency, often responses, monosyllabic. Abstraction fair, computation impaired, language function intact, attention span short. Mood and affect withdrawn. LABORATORY DATA: Reviewed. FINAL DIAGNOSES: Major depressive disorder with psychotic features, mild cognitive impairment; anxiety disorder, unspecified; impulse control disorder, unspecified. Rest unchanged from admission. DISCHARGE MEDICATIONS: Please refer to the [facility]. DISCHARGE INSTRUCTIONS: Outpatient psychiatric and medical followup at the intermediate. Time for discharge day management greater than 30 minutes. NATALI RABAGO MD DR: TARYN/amrgaret JOB#: [id number] / [id number]
== END 2020-12-03 10:45 | DRG 885 ==
LOC: GEROPSY 04:04
PROVIDERS: ADMIT Psychiatry & Neurology Psychiatry; ATTEND Psychiatry & Neurology Psychiatry
DX: F32.3 Major depressive disorder, single episode, severe with psychotic features (principal); F01.51 Vascular dementia, unspecified severity, with behavioral disturbance; N18.9 Chronic kidney disease, unspecified; F02.81 Dementia in other diseases classified elsewhere, unspecified severity, with behavioral disturbance; G93.40 Encephalopathy, unspecified; E11.22 Type 2 diabetes mellitus with diabetic chronic kidney disease; I12.9 Hypertensive chronic kidney disease with stage 1 through stage 4 chronic kidney disease, or unspecified chronic kidney disease; Z20.822 Contact with and (suspected) exposure to COVID-19; F43.10 Post-traumatic stress disorder, unspecified; G47.00 Insomnia, unspecified; G30.9 Alzheimer's disease, unspecified; D64.9 Anemia, unspecified; E55.9 Vitamin D deficiency, unspecified; E78.5 Hyperlipidemia, unspecified; F10.20 Alcohol dependence, uncomplicated; F63.9 Impulse disorder, unspecified; N40.0 Benign prostatic hyperplasia without lower urinary tract symptoms; Z79.899 Other long term (current) drug therapy; Z86.73 Personal history of transient ischemic attack (TIA), and cerebral infarction without residual deficits; Z86.12 Personal history of poliomyelitis
CPT/HCPCS: 36415; 70450; 80053; 80061; 81001; 82947; 83036; 83540; 83550; 84436; 84480; 85025; 85379; 93005; U0003; U0005; 97110; 97116; 97530; 97535